=== PATIENT | male | born 1975 | race Caucasian/White ===

== ENCOUNTER 2019-04-21 13:21 | Emergency (ER) | payer SELFPAY ==
--- NOTE | 2019-04-21 14:02 | ER ---
Nurse's Notes [facility] Name: Bhargav Cresaranya Age: 44 yrs Sex: Male : 1975 Arrival Date: 04/21/2019 Time: 13:23 Bed 4 Private MD: Diagnosis: Gastrointestinal hemorrhage, unspecified-upper;Unspecified cirrhosis of liver;Ascites;Hypotension;Unspecified kidney failure;Hypomagnesemia Presentation: 04/21 13:30 Presenting complaint: Patient states: hx of cirrhosis/esophageal varices, vomiting iw blood today X 2 hours, started feeling bad yesterday, was feeling fatigued and bloated, was recently discharged from [facility] 1 month ago for variceal bleeding, hx of heavy drinking, stopped 1month ago but still drinks occasionally, c/o nausea, bloating, SOB, constipation, last BM was 3-4 days ago, took laxative, no relief. Transition of care: patient was not received from another setting of care. Onset of symptoms was April 21, 2019. Risk Assessment: Do you want to hurt yourself or someone else? Patient reports no desire to harm self or others. Initial Sepsis Screen: Does the patient meet any 2 criteria? Systolic BP < 90 mmHg. HR > 90 bpm. Does the patient have a suspected source of infection? No. Patient's initial sepsis screen is negative. Care prior to arrival: None. 13:30 Method Of Arrival: Wheelchair 13:30 Acuity: KIRILL 2 iw Historical: - Allergies: 13:35 No Known Allergies; iw - Home Meds: 13:35 None [Active]; iw - PMHx: 13:35 Cirrhosis; gallstones; esophageal varices; iw - PSHx: 13:35 variceal banding; iw - Immunization history:: Adult Immunizations not up to date. - Ebola Screening: : Patient negative for fever greater than or equal to 101.5 degrees Fahrenheit, and additional compatible Ebola Virus Disease symptoms Patient denies exposure to infectious person Patient denies travel to an Ebola-affected area in the 21 days before illness onset No symptoms or risks identified at this time. - Family history:: not pertinent. - Social history:: Smoking status: Patient uses tobacco products, Patient uses alcohol. Screenin:45 Abuse screen: Denies threats or abuse. Denies injuries from another. Nutritional hj screening: No deficits noted. Tuberculosis screening: No symptoms or risk factors identified. Fall Risk None identified. Assessment: 13:35 General: Appears distressed, uncomfortable, Behavior is cooperative, appropriate for hj age, anxious. Pain: Complains of pain in abdomen. Neuro: Level of Consciousness is awake, obeys commands, confused, Oriented to person, place, time, situation. Cardiovascular: Denies chest pain. Respiratory: Airway is patent Respiratory effort is labored, Respiratory pattern is tachypnea. GI: Reports bloody stool. : No signs and/or symptoms were reported regarding the genitourinary system. EENT: No signs and/or symptoms were reported regarding the EENT system. Derm: No signs and/or symptoms reported regarding the dermatologic system. Musculoskeletal: No signs and/or symptoms reported regarding the musculoskeletal system. 13:45 Reassessment: pt continues to be uncomfortable; MD at bedside; BP is on the 80's/50's;. hj 13:46 Reassessment: Md considers Central line placement and BIPAP placement; pt to be moved hj to bed 4;. 14:00 Reassessment: on bed 4; RT in room for BIPAP, pt refused BIPAP; on Neb tx; O2 sats on hj 95-96%; cath lab radiological technologist in room for blood draw but unable to stick pt;. 14:30 Reassessment: pt medicated with ativan 1 mg IV;. hj 14:35 Reassessment: pt now calmer; BIPAP, intubation set, on standbuy;. hj 15:20 Reassessment: assisted MD on central line placement;. hj 16:20 Reassessment: Patient and/or family updated on plan of care and expected duration. Pain hj level reassessed. Patient is alert, oriented x 3, equal unlabored respirations, skin warm/dry/pink. Patient states feeling better. 16:49 Reassessment: awaiting final paper works at [facility];. hj 17:15 Reassessment: Patient and/or family updated on plan of care and expected duration. Pain hj level reassessed. Patient is alert, oriented x 3, equal unlabored respirations, skin warm/dry/pink. called Michelle, ([phone]); informing her that pt is looking for her, says shell be here as soon as her son comes home; will relay message to pt;. Reassessment: BT of FFP started; documentation in paper docs; Nurse Saúl Metzger verfied info;. 17:50 Reassessment: 2nd unit of FFP started; Nurse James verified infusion;. hj 18:20 Reassessment: 1st unit of PRBC started; Nurse James verified blood;. hj 18:37 Reassessment: attempted to call report RN of [address] [address], Bed 7215;. hj 18:50 Reassessment: gave report to Ting Corcoran RN;. hj 19:00 Reassessment: report given to NESHA Osorio. hj 19:22 General: Appears in no apparent distress. comfortable, Behavior is calm, cooperative. ak1 Pain: Denies pain. Neuro: Level of Consciousness is awake, alert, obeys commands, confused, Oriented to person, place, time, situation, [employer] are equal bilaterally Moves all extremities. Speech is normal. Cardiovascular: Patient's skin is warm and dry. Rhythm is regular. Respiratory: Airway is patent Respiratory effort is even, unlabored, Respiratory pattern is regular, Breath sounds are clear. GI: Abdomen is round Bowel sounds present X 4 quads. no vomiting noted at this time. pt tolerating ice chips. : No signs and/or symptoms were reported regarding the genitourinary system. EENT: No signs and/or symptoms were reported regarding the EENT system. Derm: Skin is jaundiced, Skin temperature is warm. Musculoskeletal: No signs and/or symptoms reported regarding the musculoskeletal system. 19:47 Reassessment: pt tolerated 1st unit of blood well. see transfusion record for ak1 additional vital signs. 20:05 Reassessment: 2nd unit of PRBC started. ak1 20:14 General: Appears comfortable, Behavior is calm, resting with eyes closed, resp even and ak1 unlabored.. Respiratory: Airway is patent Respiratory effort is even, unlabored, Respiratory pattern is regular, Breath sounds are clear. 20:18 Reassessment: pt tolerating 2nd unit well. pt resting with eyes closed, resp unlabored. ak1 20:58 Reassessment: report given to Lico García with EMS. pt A\T\OX4 with even unlabored resp. ak1 blood products check with Lico García. non destructive testing supervisor with EMS. pt lungs CTA. pt in no distress at time of transport. Vital Signs: 13:35 BP 71 / 43; Pulse 105; Resp 22 S; Pulse Ox 96% on R/A; iw 14:00 BP 80 / 50; Pulse 114; Resp 24; Pulse Ox 89% on R/A; hj 14:30 BP 82 / 48; Pulse 115; Resp 26; Pulse Ox 92% on 2 lpm NC; hj 14:55 BP 104 / 66; Pulse 98; Resp 16; Pulse Ox 98% on Nebulizer Mask; hj 15:44 BP 101 / 62; Pulse 107; Resp 20; Pulse Ox 96% on 4 lpm NC; hj 15:57 BP 100 / 58; Pulse 85; Resp 18; Pulse Ox 96% on 4 lpm NC; hj 16:20 BP 101 / 60; Pulse 80; Resp 18; Pulse Ox 100% on 4 lpm NC; hj 16:48 BP 102 / 78; Pulse 86; Resp 18; Pulse Ox 97% on 4 lpm NC; hj 17:07 BP 118 / 80; Pulse 84; Resp 18; Temp 98.1(TE); Pulse Ox 100% on 4 lpm NC; hj 18:13 BP 120 / 71; Pulse 83; Resp 18; Pulse Ox 100% on 3 lpm NC; hj 18:28 BP 110 / 68; Pulse 83; Resp 18; Pulse Ox 100% on 3 lpm NC; hj 19:00 BP 106 / 91; Pulse 77; Resp 16; Temp 97.9(TE); Pulse Ox 96% on 3 lpm NC; Pain 0/10; ak1 19:29 BP 117 / 76; Pulse 78; Resp 14; Pulse Ox 100% on 3 lpm NC; ak1 20:10 BP 110 / 80; Pulse 74; Resp 14; Temp 97.8; Pulse Ox 100% on 3 lpm NC; Pain 0/10; ak1 20:15 BP 119 / 81; Pulse 76; Resp 14; Temp 97.9; Pulse Ox 99% on 3 lpm NC; Pain 0/10; ak1 20:25 BP 122 / 84; Pulse 75; Resp 14; Temp 98.2; Pulse Ox 98% on 3 lpm NC; Pain 0/10; ak1 21:00 BP 140 / 77; Pulse 88; Resp 18; Temp 98.1(TE); Pulse Ox 97% on 3 lpm NC; Pain 0/10; ak1 ED Course: 13:23 Patient arrived in ED. iw 13:23 Jay Cleary RN is Primary Nurse. hj 13:26 Anoop King MD is Attending Physician. nelson 13:30 Initial lab(s) drawn, by me, sent to lab. Inserted saline lock: 20 gauge in right iw antecubital area, using aseptic technique. Blood collected. 13:33 Triage completed. iw 13:35 Arm band placed on. iw 13:55 Patient has correct armband on for positive identification. Placed in gown. Bed in low hj position. Call light in reach. Side rails up X 1. Adult w/ patient. 14:00 Missed attempt(s): 20 gauge in left forearm. Bleeding controlled, band aid applied, iw catheter tip intact. 14:05 EKG done, by ED staff. sm3 15:49 XRAY Chest (1 view) In Process Unspecified. EDMS 18:55 No provider procedures requiring assistance completed. Patient transferred, IV remains hj in place. intact. Administered Medications: 13:45 Drug: Vitamin K1 10 mg Route: Sub-Q; Site: abdomen; hj 15:42 Follow up: Response: No adverse reaction hj 13:50 Drug: NS 0.9% 1000 ml Route: IV; Rate: 1000 ml; Site: right antecubital; hj 15:43 Follow up: IV Status: Completed infusion; IV Intake: 1000ml hj 13:50 Drug: Zofran 4 mg Route: IVP; Site: right antecubital; hj 15:43 Follow up: Response: No adverse reaction hj 13:58 Drug: ProTONIX 80 mg Route: IVP; Site: right antecubital; hj 15:42 Follow up: Response: No adverse reaction hj 14:00 Drug: SandoSTATIN 100 mcg Route: IV; Rate: per protocol; Site: right antecubital; hj 15:42 Follow up: IV Status: Completed infusion hj 14:20 Drug: SOLU-Medrol 125 mg Route: IVP; Site: right antecubital; hj 14:57 Follow up: Response: No adverse reaction hj 14:30 Drug: Xopenex 3.75 mg Route: Inhalation; hj 14:30 Drug: AtroVENT Aerosol 0.5 mg Route: Inhalation; hj 14:30 Drug: Ativan 1 mg Route: IVP; Site: right antecubital; hj 14:57 Follow up: Response: No adverse reaction; Anxiety decreased hj 15:15 Drug: SandoSTATIN 50 mcg Route: IV; Rate: per protocol; Site: right antecubital; hj 15:42 Follow up: IV Status: Completed infusion hj 15:33 Drug: ProTONIX 8 mg/hr Route: IV; Rate: 25 ml/hr; Site: right femoral; hj 15:41 Follow up: IV Status: Infusion continued hj 15:34 Drug: NS 0.9% 1000 ml Route: IV; Rate: 1 bolus; Site: right femoral; hj 15:42 Follow up: IV Status: Completed infusion hj 17:00 Follow up: IV Status: Completed infusion; IV Intake: 1000ml hj 15:41 Drug: Rocephin 2 grams Route: IV; Rate: per protocol; Site: right femoral; hj 15:41 Follow up: IV Status: Completed infusion hj 16:12 Drug: NS 0.9% 1000 ml Route: IV; Rate: 125 ml/hr; Site: right femoral; hj 16:13 Follow up: IV Status: Infusion continued upon transfer hj 16:33 Drug: Magnesium Sulfate 2 grams Route: IVPB; Infused Over: 2 hrs; Site: right femoral; hj 16:48 Follow up: IV Status: Completed infusion hj 18:39 Follow up: IV Status: Completed infusion; IV Intake: 100ml hj 16:33 Drug: Thiamine 100 mg Route: IV; Rate: bolus; Site: right femoral; hj 16:48 Follow up: IV Status: Completed infusion; IV Intake: 1ml hj 18:39 Follow up: IV Status: Completed infusion hj 16:33 Drug: Lactulose 30 grams Volume: 45 ml; Route: PO; hj 16:48 Follow up: Response: No adverse reaction hj 18:38 Follow up: Response: No adverse reaction hj 18:33 Not Given (Patient Refused): Ativan 1 mg IVP once hj Intake: 15:43 IV: 1000ml; Total: 1000ml. hj 16:48 IV: 1ml; Total: 1001ml. hj 17:00 IV: 1000ml; Total: 2001ml. hj 18:39 IV: 100ml; Total: 2101ml. hj Outcome: 14:02 ER care complete, transfer ordered by . [facility] 18:55 Transferred by [facility] to [facility], Transfer form completed. hj X-rays sent w/ patient. 18:55 Condition: stable 18:55 Instructed on the need for transfer, Demonstrated understanding of instructions. 21:07 Patient left the ED. ak1 Signatures: Dispatcher [employer] EDMS Anoop King MD MD cha Williams, Irene, RN Jo Chavze RN RN ak1 Jay Cleary RN RN hj Montes, Shakira 3 Corrections: (The following items were deleted from the chart) 16:04 15:57 BP 105 / 64; Pulse 85bpm; Resp 18bpm; Pulse Ox 96% 4 lpm Nasal Cannula; hj hj 16:21 15:44 BP 101 / 62; Pulse 107bpm; Resp 20bpm; Pulse Ox 96% 2 lpm Nasal Cannula; hj hj 16:49 16:48 BP 102 / 78; Pulse 92bpm; Resp 18bpm; Pulse Ox 97% 4 lpm Nasal Cannula; hj hj
--- NOTE | 2019-04-21 14:03 | EDPHYS ---
Physician Documentation [facility] Name: Bhargav Crews Age: 44 yrs Sex: Male : 1975 Arrival Date: 04/21/2019 Time: 13:23 Bed 4 Private MD: ANGELITA Physician Anoop King HPI: 04/21 13:55 This 44 yrs old Male presents to ER via Wheelchair with complaints of GI nelson Bleeding. 13:55 The patient presents to the emergency department vomiting blood. Onset: The nelson symptoms/episode began/occurred 2 day(s) ago. Abdominal pain: none is appreciated. Modifying factors: The symptoms are alleviated by nothing, the symptoms are aggravated by nothing. Associated signs and symptoms: Pertinent positives: dizziness at rest, dizziness when standing, shortness of breath, near-syncope, vomiting. Severity of symptoms: At their worst the symptoms were mild moderate in the emergency department the symptoms are unchanged. The patient has not experienced similar symptoms in the past. Historical: - Allergies: 13:35 No Known Allergies; iw - Home Meds: 13:35 None [Active]; iw - PMHx: 13:35 Cirrhosis; gallstones; esophageal varices; iw - PSHx: 13:35 variceal banding; iw - Immunization history:: Adult Immunizations not up to date. - Ebola Screening: : Patient negative for fever greater than or equal to 101.5 degrees Fahrenheit, and additional compatible Ebola Virus Disease symptoms Patient denies exposure to infectious person Patient denies travel to an Ebola-affected area in the 21 days before illness onset No symptoms or risks identified at this time. - Family history:: not pertinent. - Social history:: Smoking status: Patient uses tobacco products, Patient uses alcohol. ROS: 13:55 Constitutional: Negative for fever, chills, and weight loss, Eyes: Negative for injury, nelson pain, redness, and discharge, ENT: Negative for injury, pain, and discharge, Neck: Negative for injury, pain, and swelling, Back: Negative for injury and pain, : Negative for injury, bleeding, discharge, and swelling, MS/Extremity: Negative for injury and deformity, Neuro: Negative for headache, weakness, numbness, tingling, and seizure, Psych: Negative for depression, anxiety, suicide ideation, homicidal ideation, and hallucinations, Allergy/Immunology: Negative for hives, rash, and allergies, Endocrine: Negative for neck swelling, polydipsia, polyuria, polyphagia, and marked weight changes, Hematologic/Lymphatic: Negative for swollen nodes, abnormal bleeding, and unusual bruising. 13:55 Cardiovascular: Positive for palpitations. 13:55 Respiratory: Positive for shortness of breath. 13:55 Abdomen/GI: Positive for abdominal pain, abdominal distension. 13:55 Skin: Positive for pallor. Exam: 13:55 Constitutional: This is a well developed, well nourished patient who is awake, alert, nelson and in no acute distress. Head/Face: Normocephalic, atraumatic. ENT: Nares patent. No nasal discharge, no septal abnormalities noted. Tympanic membranes are normal and external auditory canals are clear. Oropharynx with no redness, swelling, or masses, exudates, or evidence of obstruction, uvula midline. Mucous membranes moist. Neck: Trachea midline, no thyromegaly or masses palpated, and no cervical lymphadenopathy. Supple, full range of motion without nuchal rigidity, or vertebral point tenderness. No Meningismus. Chest/axilla: Normal chest wall appearance and motion. Nontender with no deformity. No lesions are appreciated. Respiratory: Lungs have equal breath sounds bilaterally, clear to auscultation and percussion. No rales, rhonchi or wheezes noted. No increased work of breathing, no retractions or nasal flaring. Back: No spinal tenderness. No costovertebral tenderness. Full range of motion. Male : Normal genitalia with no discharge or lesions. MS/ Extremity: Pulses equal, no cyanosis. Neurovascular intact. Full, normal range of motion. Neuro: Awake and alert, GCS 15, oriented to person, place, time, and situation. Cranial nerves II-XII grossly intact. Motor strength 5/5 in all extremities. Sensory grossly intact. Cerebellar exam normal. Normal gait. Psych: Awake, alert, with orientation to person, place and time. Behavior, mood, and affect are within normal limits. 13:55 Cardiovascular: Rate: tachycardic, Rhythm: regular, Pulses: Pulses are 4+ in bilateral radial, brachial, femoral, popliteal, posterior tibial and and dorsalis pedis arteries.. Heart sounds: normal, Edema: is not appreciated, JVD: is not appreciated. 13:55 Skin: Appearance: Color: pale, Temperature: normal temperature, Moisture: normal moisture, petechiae, not noted, ecchymosis, not noted, flushing, not noted, diaphoresis is not appreciated. Vital Signs: 13:35 BP 71 / 43; Pulse 105; Resp 22 S; Pulse Ox 96% on R/A; iw 14:00 BP 80 / 50; Pulse 114; Resp 24; Pulse Ox 89% on R/A; hj 14:30 BP 82 / 48; Pulse 115; Resp 26; Pulse Ox 92% on 2 lpm NC; hj 14:55 BP 104 / 66; Pulse 98; Resp 16; Pulse Ox 98% on Nebulizer Mask; hj 15:44 BP 101 / 62; Pulse 107; Resp 20; Pulse Ox 96% on 4 lpm NC; hj 15:57 BP 100 / 58; Pulse 85; Resp 18; Pulse Ox 96% on 4 lpm NC; hj 16:20 BP 101 / 60; Pulse 80; Resp 18; Pulse Ox 100% on 4 lpm NC; hj 16:48 BP 102 / 78; Pulse 86; Resp 18; Pulse Ox 97% on 4 lpm NC; hj 17:07 BP 118 / 80; Pulse 84; Resp 18; Temp 98.1(TE); Pulse Ox 100% on 4 lpm NC; hj 18:13 BP 120 / 71; Pulse 83; Resp 18; Pulse Ox 100% on 3 lpm NC; hj 18:28 BP 110 / 68; Pulse 83; Resp 18; Pulse Ox 100% on 3 lpm NC; hj 19:00 BP 106 / 91; Pulse 77; Resp 16; Temp 97.9(TE); Pulse Ox 96% on 3 lpm NC; Pain 0/10; ak1 19:29 BP 117 / 76; Pulse 78; Resp 14; Pulse Ox 100% on 3 lpm NC; ak1 20:10 BP 110 / 80; Pulse 74; Resp 14; Temp 97.8; Pulse Ox 100% on 3 lpm NC; Pain 0/10; ak1 20:15 BP 119 / 81; Pulse 76; Resp 14; Temp 97.9; Pulse Ox 99% on 3 lpm NC; Pain 0/10; ak1 20:25 BP 122 / 84; Pulse 75; Resp 14; Temp 98.2; Pulse Ox 98% on 3 lpm NC; Pain 0/10; ak1 21:00 BP 140 / 77; Pulse 88; Resp 18; Temp 98.1(TE); Pulse Ox 97% on 3 lpm NC; Pain 0/10; ak1 Procedures: 15:18 Central Line: the site was prepped with Betadine, in sterile fashion, a triple lumen nelson catheter was inserted, in the right in 3 attempts. placement was verified, by blood return, the site was dressed with using sterile technique, the patient tolerated the procedure, well. MDM: 13:26 Patient medically screened. [facility] 13:59 Data reviewed: vital signs, nurses notes, lab test result(s), EKG, radiologic studies, nelson plain films. 04/21 13:48 Order name: Basic Metabolic Panel; Complete Time: 16: 04/21 13:48 Order name: CBC with Diff; Complete Time: 16: 04/21 13:48 Order name: LFT's; Complete Time: 16:29 04/21 13:48 Order name: Magnesium; Complete Time: 16: 04/21 13:48 Order name: NT PRO-BNP; Complete Time: 16: 04/21 13:48 Order name: PT-INR; Complete Time: 16:40 04/21 13:48 Order name: Troponin (emerg Dept Use Only); Complete Time: 16: 04/21 13:48 Order name: Amylase, Serum; Complete Time: 16:29 04/21 13:48 Order name: Lipase; Complete Time: 16:29 04/21 13:49 Order name: Type And Screen 04/21 13:55 Order name: AMMONIA; Complete Time: 16:29 [facility] 04/21 13:55 Order name: UDS [facility] 04/21 14:05 Order name: Bb Add On bd 04/21 14:21 Order name: Blood Culture Adult (2) [facility] 04/21 13:48 Order name: XRAY Chest (1 view); Complete Time: 16:29 04/21 16:24 Order name: Fresh Frozen Plasma [facility] 04/21 16:36 Order name: ABO/RH no charge; Complete Time: 16:40 [facility] 04/21 17:15 Order name: Packed RBCs (Additional Unit) [facility] 04/21 13:48 Order name: EKG; Complete Time: 13:51 04/21 13:48 Order name: Cardiac monitoring; Complete Time: 13:59 04/21 13:48 Order name: EKG - Nurse/Tech; Complete Time: 13:59 04/21 13:48 Order name: IV Saline Lock; Complete Time: 13:59 04/21 13:48 Order name: Labs collected and sent; Complete Time: 13:59 04/21 13:48 Order name: O2 Per Protocol; Complete Time: 13:59 04/21 13:48 Order name: O2 Sat Monitoring; Complete Time: 13:59 04/21 14:14 Order name: Labs - recollect needed; Complete Time: 15:33 04/21 14:21 Order name: Central Line Kit; Complete Time: 15:33 [facility] 04/21 15:53 Order name: Labs - recollect needed; Complete Time: 15:56 04/21 17:10 Order name: Transfuse; Complete Time: 17:13 hj Administered Medications: 13:45 Drug: Vitamin K1 10 mg Route: Sub-Q; Site: abdomen; hj 15:42 Follow up: Response: No adverse reaction hj 13:50 Drug: NS 0.9% 1000 ml Route: IV; Rate: 1000 ml; Site: right antecubital; hj 15:43 Follow up: IV Status: Completed infusion; IV Intake: 1000ml hj 13:50 Drug: Zofran 4 mg Route: IVP; Site: right antecubital; hj 15:43 Follow up: Response: No adverse reaction hj 13:58 Drug: ProTONIX 80 mg Route: IVP; Site: right antecubital; hj 15:42 Follow up: Response: No adverse reaction hj 14:00 Drug: SandoSTATIN 100 mcg Route: IV; Rate: per protocol; Site: right antecubital; hj 15:42 Follow up: IV Status: Completed infusion hj 14:20 Drug: SOLU-Medrol 125 mg Route: IVP; Site: right antecubital; hj 14:57 Follow up: Response: No adverse reaction hj 14:30 Drug: Xopenex 3.75 mg Route: Inhalation; hj 14:30 Drug: AtroVENT Aerosol 0.5 mg Route: Inhalation; hj 14:30 Drug: Ativan 1 mg Route: IVP; Site: right antecubital; hj 14:57 Follow up: Response: No adverse reaction; Anxiety decreased hj 15:15 Drug: SandoSTATIN 50 mcg Route: IV; Rate: per protocol; Site: right antecubital; hj 15:42 Follow up: IV Status: Completed infusion hj 15:33 Drug: ProTONIX 8 mg/hr Route: IV; Rate: 25 ml/hr; Site: right femoral; hj 15:41 Follow up: IV Status: Infusion continued hj 15:34 Drug: NS 0.9% 1000 ml Route: IV; Rate: 1 bolus; Site: right femoral; hj 15:42 Follow up: IV Status: Completed infusion hj 17:00 Follow up: IV Status: Completed infusion; IV Intake: 1000ml hj 15:41 Drug: Rocephin 2 grams Route: IV; Rate: per protocol; Site: right femoral; hj 15:41 Follow up: IV Status: Completed infusion hj 16:12 Drug: NS 0.9% 1000 ml Route: IV; Rate: 125 ml/hr; Site: right femoral; hj 16:13 Follow up: IV Status: Infusion continued upon transfer hj 16:33 Drug: Magnesium Sulfate 2 grams Route: IVPB; Infused Over: 2 hrs; Site: right femoral; hj 16:48 Follow up: IV Status: Completed infusion hj 18:39 Follow up: IV Status: Completed infusion; IV Intake: 100ml hj 16:33 Drug: Thiamine 100 mg Route: IV; Rate: bolus; Site: right femoral; hj 16:48 Follow up: IV Status: Completed infusion; IV Intake: 1ml hj 18:39 Follow up: IV Status: Completed infusion hj 16:33 Drug: Lactulose 30 grams Volume: 45 ml; Route: PO; hj 16:48 Follow up: Response: No adverse reaction hj 18:38 Follow up: Response: No adverse reaction hj 18:33 Not Given (Patient Refused): Ativan 1 mg IVP once hj Disposition: 04/21/19 14:02 Transfer ordered to [facility]. Diagnosis are Gastrointestinal hemorrhage, unspecified - upper, Unspecified cirrhosis of liver, Ascites, Hypotension, Unspecified kidney failure, Hypomagnesemia. - Reason for transfer: Higher level of care. - Accepting physician is to [facility], liver team, icu. - Condition is Serious. - Problem is new. - Symptoms have improved. Signatures: Dispatcher [employer] April Kee Corey, MD MD cha Williams, Irene, RN RN iw Jo Belcher, RN RN ak1 Jay Cleary RN RN hj Corrections: (The following items were deleted from the chart) 14:50 14:24 BiPap ([employer] Only)+JAVI ordered. [facility] 16:32 14:02 04/21/2019 14:02 Transfer ordered to [facility]. Diagnosis is nelson Gastrointestinal hemorrhage, unspecified - upper; Unspecified cirrhosis of liver; Ascites; Hypotension. Reason for transfer: Higher level of care. Accepting physician is to [facility], liver team, icu. Condition is Serious. Problem is new. Symptoms have improved. [facility] 21:07 16:32 04/21/2019 14:02 Transfer ordered to [facility]. Diagnosis is ak1 Gastrointestinal hemorrhage, unspecified - upper; Unspecified cirrhosis of liver; Ascites; Hypotension; Unspecified kidney failure; Hypomagnesemia. Reason for transfer: Higher level of care. Accepting physician is to [facility], liver team, icu. Condition is Serious. Problem is new. Symptoms have improved. nelson
[2019-04-21] MEDS ORDERED: ONDANSETRON 4 MG/2 ML VIAL ONE (14:08)
[2019-04-21] MEDS ORDERED: NA CHLORIDE 0.9% 1,000 ML ONE ×3 (14:09→16:30)
[2019-04-21] MEDS ORDERED: VITAMIN K (ADULT) 10 MG/ML ONE (14:25)
[2019-04-21] MEDS ORDERED: PANTOPRAZOLE 40 MG INJ ONE (14:26)
[2019-04-21] MEDS ORDERED: OCTREOTIDE ACETATE 100 MCG/ML IV ONE (14:30)
[2019-04-21] MEDS ORDERED: OCTREOTIDE 500 MCG in NA CHLORIDE 0.9% 500 ML IV ONE (14:30)
[2019-04-21] MEDS ORDERED: PANTOPRAZOLE INJ 80 MG in NA CHLORIDE 0.9% 250 ML IV ONE (14:30)
[2019-04-21] MEDS ORDERED: METHYLPREDNISOLONE 125 MG INJ ONE (14:38)
[2019-04-21] MEDS ORDERED: ETOMIDATE 20 MG/10 ML VIAL IV ONE (14:43)
[2019-04-21] MEDS ORDERED: MIDAZOLAM HCL 2 MG/2 ML INJ ONE (14:43)
[2019-04-21] MEDS ORDERED: SUCCINYLCHOLINE 20 MG/ML (10 ML) IV ONE (14:44)
[2019-04-21] MEDS ORDERED: IPRATROPIUM BROM 0.5MG/2.5ML ONE (14:45)
[2019-04-21] MEDS ORDERED: LEVALBUTEROL 1.25 MG/3 ML NEB ONE (14:45)
[2019-04-21] MEDS ORDERED: LORazepam 2 MG/ML VIAL ONE (14:48)
[2019-04-21] MEDS ORDERED: LIDOCAINE 1% MPF 30 ML VIAL ONE (15:15)
[2019-04-21 15:53] LABS: Absolute Lymphocytes (CBC) 2.8 K/uL (0.7-4.9); Hematocrit 27.5 % (39.6-49.0); Lymphocytes % 24.8 % (15.3-44.8); MPV 10.9 fL (7.6-11.3); RBC Red Blood Cell Count 3.34 M/uL (4.33-5.43)
[2019-04-21] MEDS ORDERED: CEFTRIAXONE/SWI 1gm 2 GM/20 ML SYR ONE (15:55)
[2019-04-21 15:57] LABS: ALT/SGPT 37 U/L (12-78); AST/SGOT 88 U/L (15-37); Albumin 3.2 g/dL (3.4-5.0); Alkaline Phosphatase 121 U/L (45-117); Amylase Level 62 U/L (25-115); BUN Blood Urea Nitrogen 16 mg/dL (7-18); Bicarbonate 31 mmol/L (21-32); Bilirubin Direct 0.4 mg/dL (0-0.2); Bilirubin Total 1.3 mg/dL (0.2-1.0); Glucose Level 108 mg/dL (74-106); Lipase 225 U/L (73-393); Magnesium 1.6 mg/dL (1.8-2.4); NT PRO-BNP 110 pg/mL (<125); Potassium 3.9 mmol/L (3.5-5.1); Sodium Level 139 mmol/L (136-145); Troponin (Emerg Dept Use Only) < 0.02 ng/mL (0.0-0.045)
--- NOTE | 2019-04-21 16:03 | RAD REPORT ---
EXAM DESCRIPTION: Rylan Single View04/21/2019 3:49 pm CLINICAL HISTORY: sob COMPARISON: none FINDINGS: The lungs appear clear of acute infiltrate. The heart is normal size IMPRESSION: No acute abnormalities displayed
[2019-04-21 16:27] LABS: Protime INR 1.61
[2019-04-21] MEDS ORDERED: THIAMINE 200 MG/2 ML INJ ONE (17:00)
[2019-04-21] MEDS ORDERED: LACTULOSE 20 GM/30 ML UCUP ONE (17:00)
[2019-04-21] MEDS ORDERED: Magnesium Sulfate 2gm IVPB 2 G/50 ML BAG IV ONE (17:00)
[2019-04-21] MEDS ORDERED: NA CHLORIDE 0.9% 100 ML IV ONE (17:13)
[2019-04-21] MEDS ORDERED: NA CHLORIDE 0.9% 200 ML IV ONE (18:01)
[2019-04-21 21:27] LABS: Barbiturates NEGATIVE (NEGATIVE); Benzodiazepines NEGATIVE (NEGATIVE); Cocaine NEGATIVE (NEGATIVE); METHAMPHETAM NEGATIVE (NEGATIVE); Methadone NEGATIVE (NEGATIVE); Opiates NEGATIVE (NEGATIVE); Phencyclidine NEGATIVE (NEGATIVE); THC Cannibis NEGATIVE (NEGATIVE)
--- NOTE | 2019-04-22 13:39 | EKG ---
Test Date: 2019-04-21 Test Time: 13:31:53 Card Services Specialist: KARTIK MEASUREMENT RESULTS: Intervals: Rate: 110 [place]: 146 QRSD: 94 QT: 372 QTc: 503 [place]: P: 51 [place]: 146 QRS: -58 T: 62 INTERPRETIVE STATEMENTS: Sinus tachycardia Indeterminate axis Possible Inferior infarct, age undetermined Abnormal ECG No previous ECG available for comparison Electronically Signed On 04-22-19 13:34:29 CDT by Elfego Eubanks
== END 2019-04-21 21:07 | disposition short-term general hospital (02) ==
LOC: ER 13:21
PROC: 05HP33Z Insertion of Infusion Device into Right External Jugular Vein, Percutaneous Approach (ICD-10-PCS; principal; 2019-04-21)
PROC: 30233N1 Transfusion of Nonautologous Red Blood Cells into Peripheral Vein, Percutaneous Approach (ICD-10-PCS; 2019-04-21)
DX: N19 Unspecified kidney failure (principal); K74.60 Unspecified cirrhosis of liver; R18.8 Other ascites; E83.42 Hypomagnesemia; Z72.0 Tobacco use
CPT/HCPCS: 36415; 71045; 80048; 80076; 80307; 82140; 82150; 83690; 83735; 83880; 84484; 85025; 85610; 86850; 86900; 86901; 87040; 93005; 96365; 96368; 96372; 96375; 99285; C9113; J0330; J0696; J2250; J2354; J2405; J2930; J3411; J3430; J3475; J7030; P9016; P9059

== ENCOUNTER 2019-07-11 13:28 | Emergency (ER) | payer SELFPAY ==
[2019-07-11] MEDS ORDERED: PANTOPRAZOLE 40 MG INJ ONE (14:11)
[2019-07-11] MEDS ORDERED: OCTREOTIDE ACETATE 100 MCG/ML ONE (14:11)
[2019-07-11 14:14] LABS: Absolute Lymphocytes (CBC) 2.7 K/uL (0.7-4.9); Basophils % 2.1 % (0-1.3); Hematocrit 24.4 % (39.6-49.0); Lymphocytes % 38.4 % (15.3-44.8); MPV 10.7 fL (7.6-11.3); RBC Red Blood Cell Count 3.25 M/uL (4.33-5.43)
[2019-07-11 14:35] LABS: ALT/SGPT 37 U/L (12-78); AST/SGOT 65 U/L (15-37); Albumin 3.3 g/dL (3.4-5.0); Alkaline Phosphatase 58 U/L (45-117); BUN Blood Urea Nitrogen 19 mg/dL (7-18); Bicarbonate 31 mmol/L (21-32); Bilirubin Direct 0.2 mg/dL (0-0.2); Bilirubin Total 0.7 mg/dL (0.2-1.0); Glucose Level 84 mg/dL (74-106); NT PRO-BNP 15 pg/mL (<125); Protein, Total 7.9 g/dL (6.4-8.2); Sodium Level 136 mmol/L (136-145); Troponin (Emerg Dept Use Only) < 0.02 ng/mL (0.0-0.045)
--- NOTE | 2019-07-11 14:35 | RAD REPORT ---
EXAM DESCRIPTION: Rylan Single View07/11/2019 2:20 pm CLINICAL HISTORY: Shortness of breath COMPARISON: March 2019 FINDINGS: The lungs appear clear of acute infiltrate. The heart is normal size IMPRESSION: No acute abnormalities displayed
[2019-07-11 14:36] LABS: Magnesium 1.3 mg/dL (1.8-2.4)
[2019-07-11] MEDS ORDERED: Magnesium Sulfate 2gm IVPB 2 G/50 ML BAG IV ONE (14:40)
[2019-07-11 14:51] LABS: Protime INR 1.31
[2019-07-11] MEDS ORDERED: PANTOPRAZOLE INJ 80 MG in NA CHLORIDE 0.9% 250 ML IV SCH (15:00)
[2019-07-11] MEDS ORDERED: OCTREOTIDE 500 MCG in NA CHLORIDE 0.9% 500 ML IV SCH (15:00)
[2019-07-11 15:14] LABS: Anisocytosis 2+; Blood Morphology Comment NOTED (NOT SEEN); Hypochromasia 2+; Platelet Estimate DECR; Platelets, Giant FEW; Urine White Blood Cell Casts OK
[2019-07-11 15:15] LABS: Elliptocytes 1+; Stomatocytes 1+
--- NOTE | 2019-07-11 15:20 | EDPHYS ---
Physician Documentation [facility] – [place], [place] Name: Bhargav Crews Age: 44 yrs Sex: Male : 1975 Arrival Date: 07/11/2019 Time: 13:29 Bed 8 Private MD: ED Physician Lewis Mobley HPI: 07/11 14:06 This 44 yrs old Male presents to ER via Ambulatory with complaints of jr8 Shortness Of Breath, Dizziness, Nausea. 14:06 The patient has shortness of breath at rest. Onset: The symptoms/episode began/occurred jr8 today. Duration: The symptoms are continuous. Associated signs and symptoms: Pertinent negatives: diaphoresis, dizziness. Severity of symptoms: At their worst the symptoms were moderate. Pt reports hx fo esophageal varices, has feels SOB and dizzy, states he feels like when his hgb is low. Historical: - Allergies: 13:36 No Known Allergies; ss - PMHx: 13:36 Cirrhosis; esophageal varices; GALLSTONES; ss - PSHx: 13:36 variceal banding; ss - Immunization history:: Adult Immunizations unknown. - Social history:: Smoking status: Patient uses tobacco products, smokes one pack cigarettes per day. Patient/guardian denies using street drugs. - Ebola Screening: : Patient denies exposure to infectious person Patient denies travel to an Ebola-affected area in the 21 days before illness onset. ROS: 14:08 Constitutional: Negative for fever, chills, and weight loss, Eyes: Negative for injury, jr8 pain, redness, and discharge, ENT: Negative for injury, pain, and discharge, Neck: Negative for injury, pain, and swelling, Cardiovascular: Negative for chest pain, palpitations, and edema, Respiratory: Negative for shortness of breath, cough, wheezing, and pleuritic chest pain, Back: Negative for injury and pain, MS/Extremity: Negative for injury and deformity, Neuro: Negative for headache, weakness, numbness, tingling, and seizure. 14:08 Abdomen/GI: Positive for black/tarry stool. Exam: 14:08 Constitutional: This is a well developed, well nourished patient who is awake, alert, jr8 and in no acute distress. Head/Face: Normocephalic, atraumatic. Eyes: Pupils equal round and reactive to light, extra-ocular motions intact. Lids and lashes normal. Conjunctiva and sclera are non-icteric and not injected. Cornea within normal limits. Periorbital areas with no swelling, redness, or edema. ENT: Nares patent. No nasal discharge, no septal abnormalities noted. Tympanic membranes are normal and external auditory canals are clear. Oropharynx with no redness, swelling, or masses, exudates, or evidence of obstruction, uvula midline. Mucous membranes moist. Neck: Trachea midline, no thyromegaly or masses palpated, and no cervical lymphadenopathy. Supple, full range of motion without nuchal rigidity, or vertebral point tenderness. No Meningismus. Chest/axilla: Normal chest wall appearance and motion. Nontender with no deformity. No lesions are appreciated. Cardiovascular: Regular rate and rhythm with a normal S1 and S2. No gallops, murmurs, or rubs. Normal PMI, no JVD. No pulse deficits. Respiratory: Lungs have equal breath sounds bilaterally, clear to auscultation and percussion. No rales, rhonchi or wheezes noted. No increased work of breathing, no retractions or nasal flaring. Back: No spinal tenderness. No costovertebral tenderness. Full range of motion. Skin: Warm, dry with normal turgor. Normal color with no rashes, no lesions, and no evidence of cellulitis. 14:08 Abdomen/GI: Inspection: abdomen appears normal, obese Bowel sounds: normal, Palpation: abdomen is soft and non-tender, in all quadrants, Rectal exam: Stool: guaiac positive, black, loose, hemorrhoid(s), are not appreciated, Indicators: McBurney's point is not tender, Meier's sign is negative, Rovsing's sign is negative, Obturator sign is negative, Psoas sign is negative. Vital Signs: 13:36 BP 95 / 77; Pulse 94; Resp 20; Temp 97.1(TE); Pulse Ox 94% on R/A; Weight 101.6 kg; ss Height 5 ft. 9 in. (175.26 cm); Pain 0/10; 15:00 BP 102 / 74; Pulse 72; Resp 20; Pulse Ox 99% on R/A; hb 16:01 BP 96 / 67; Pulse 76; Resp 18; Pulse Ox 99% on R/A; Pain 0/10; hb 17:00 BP 102 / 68; Pulse 74; Resp 15; Pulse Ox 100% on R/A; Pain 0/10; hb 13:36 Body Mass Index 33.08 (101.60 kg, 175.26 cm) ss MDM: 13:46 Patient medically screened. [facility] 15:16 Data reviewed: vital signs, nurses notes, lab test result(s), and as a result, I will [facility] admit patient. Data interpreted: Pulse oximetry: on room air is 99 %. Interpretation: normal. Counseling: I had a detailed discussion with the patient and/or guardian regarding: the historical points, exam findings, and any diagnostic results supporting the discharge/admit diagnosis, lab results, the need to transfer to another facility, [facility] does not immediately have the required specialist. 15:18 ED course: Consulted with GI, hepatology, and medicine at [facility] who accepted [facility] transfer as we do not have GI available at this time . 07/11 13:46 Order name: Basic Metabolic Panel; Complete Time: 14:39 [facility] 07/11 13:46 Order name: CBC with Diff; Complete Time: 15:16 [facility] 07/11 13:46 Order name: LFT's; Complete Time: 14:39 8 07/11 13:46 Order name: Magnesium; Complete Time: 14:39 8 07/11 13:46 Order name: NT PRO-BNP; Complete Time: 14:39 8 07/11 13:46 Order name: PT-INR; Complete Time: 14:57 [facility] 07/11 13:46 Order name: Troponin (emerg Dept Use Only); Complete Time: 14:39 8 07/11 13:46 Order name: TS [facility] 07/11 13:47 Order name: Occult Blood--Ancillary eb 07/11 14:39 Order name: Bb Add On eb 07/11 15:03 Order name: Antibody Identification EDCT 07/11 15:04 Order name: CBC Smear Scan; Complete Time: 15:16 [facility] 07/11 15:15 Order name: Blood Culture Adult (2) [facility] 07/11 13:46 Order name: XRAY Chest (1 view); Complete Time: 14:39 [facility] 07/11 13:46 Order name: EKG; Complete Time: 13:47 07/11 13:46 Order name: Cardiac monitoring; Complete Time: 14:04 8 07/11 13:46 Order name: EKG - Nurse/Tech; Complete Time: 14:04 8 07/11 13:46 Order name: IV Saline Lock; Complete Time: 14:04 8 07/11 13:46 Order name: Labs collected and sent; Complete Time: 14:05 8 07/11 13:46 Order name: O2 Per Protocol; Complete Time: 14:04 [facility] 07/11 13:46 Order name: O2 Sat Monitoring; Complete Time: 14:05 8 Administered Medications: 14:23 Drug: ProTONIX 40 mg Route: IVP; Site: right upper arm; hb 15:11 Follow up: Response: No adverse reaction hb 14:24 Drug: Octreotide 25 mcg Route: IV; Rate: calculated rate; Site: right upper arm; hb 15:11 Follow up: Response: No adverse reaction; IV Status: Completed infusion; IV Intake: hb 0.25ml 14:44 Drug: Magnesium Sulfate 2 grams Route: IVPB; Infused Over: 2 hrs; Site: right upper arm;hb 16:45 Follow up: Response: No adverse reaction; IV Status: Completed infusion; IV Intake: 50mlhb 15:11 Drug: Octreotide Infusion (50 mcg/hr) - (Octreotide 500 mcg, NS 0.9% 500 ml) Route: IV; hb Rate: 50 ml/hr; Site: right upper arm; 17:00 Follow up: Response: No adverse reaction; IV Status: Infusion continued upon transfer; hb IV Intake: 100ml 15:11 Drug: ProTONIX 8 mg/hr Route: IV; Rate: 25 ml/hr; Site: left forearm; hb 17:00 Follow up: Response: No adverse reaction; IV Status: Infusion continued upon transfer; hb IV Intake: 50ml 15:44 Drug: Rocephin 1 grams Route: IV; Rate: calculated rate; Site: left forearm; hb 17:07 Follow up: Response: No adverse reaction hb Disposition: 07/12 15:09 Co-signature as Attending Physician, Lewis Mobley MD. gs Disposition: 07/11/19 15:[address] [facility]. Diagnosis is Gastrointestinal hemorrhage, unspecified. - Reason for transfer: Higher level of care. - Accepting physician is [facility]. - Condition is Stable. - Problem is new. - Symptoms are unchanged. Signatures: Dispatcher [employer] EDMisti Baird, RN RN Lico Hayes PA PA jr8 Shaneka Mcduffie RN RN hb Starr, Gregory, MD MD gs Corrections: (The following items were deleted from the chart) 07/11 17:06 15:19 07/11/2019 15:[address] [facility]. Diagnosis is hb Gastrointestinal hemorrhage, unspecified. Reason for transfer: Higher level of care. Accepting physician is [facility]. Condition is Stable. Problem is new. Symptoms are unchanged. jr8
--- NOTE | 2019-07-11 15:20 | ER ---
Nurse's Notes [facility] Name: Bhargav Toth Age: 44 yrs Sex: Male : 1975 Arrival Date: 07/11/2019 Time: 13:29 Bed 8 Private MD: Diagnosis: Gastrointestinal hemorrhage, unspecified Presentation: 07/11 13:32 Presenting complaint: Patient states: lightheaded and shortness of breath that began 1 ss hour ago. Patient has a history of esophageal varices and reports that last time he felt this way he was bleeding, but that only happens when he drinks. Patient reports that he quit drinking 3-4 months ago, and began taking vitamins that he believes has made his stool a little darker than normal. Transition of care: patient was not received from another setting of care. Onset of symptoms was July 11, 2019. Risk Assessment: Do you want to hurt yourself or someone else? Patient reports no desire to harm self or others. Initial Sepsis Screen: Does the patient meet any 2 criteria? No. Patient's initial sepsis screen is negative. Does the patient have a suspected source of infection? No. Patient's initial sepsis screen is negative. Care prior to arrival: None. 13:32 Method Of Arrival: Ambulatory ss 13:32 Acuity: KIRILL 2 ss Historical: - Allergies: 13:36 No Known Allergies; ss - PMHx: 13:36 Cirrhosis; esophageal varices; GALLSTONES; ss - PSHx: 13:36 variceal banding; ss - Immunization history:: Adult Immunizations unknown. - Social history:: Smoking status: Patient uses tobacco products, smokes one pack cigarettes per day. Patient/guardian denies using street drugs. - Ebola Screening: : Patient denies exposure to infectious person Patient denies travel to an Ebola-affected area in the 21 days before illness onset. Screenin:05 Abuse screen: Denies threats or abuse. Denies injuries from another. Nutritional hb screening: No deficits noted. Tuberculosis screening: No symptoms or risk factors identified. Fall Risk None identified. Assessment: 14:05 General: Appears in no apparent distress. ill, Behavior is calm, cooperative. Pain: hb Pain currently is 2 out of 10 on a pain scale. Neuro: Level of Consciousness is awake, alert, obeys commands, Oriented to person, place, time, situation. Cardiovascular: Heart tones S1 S2 present Capillary refill < 3 seconds Patient's skin is warm and dry. Rhythm is regular. Respiratory: Reports shortness of breath on exertion Airway is patent Trachea midline Respiratory effort is even, unlabored, Respiratory pattern is regular, symmetrical, Breath sounds are clear bilaterally. GI: Reports bloody stool. : No signs and/or symptoms were reported regarding the genitourinary system. EENT: No signs and/or symptoms were reported regarding the EENT system. Derm: Skin is dry, Skin is jaundiced, pale, Skin temperature is warm. Musculoskeletal: No signs and/or symptoms reported regarding the musculoskeletal system. 15:00 Reassessment: Patient appears in no apparent distress at this time. Patient and/or hb family updated on plan of care and expected duration. Pain level reassessed. Patient is alert, oriented x 3, equal unlabored respirations, skin warm/dry/pink. 15:49 Reassessment: Report called to Carina JEFFRIES at [facility]. hb 15:52 Reassessment: Pt verbalized concern re: transfer to [place], ZITA Barfield notified. hb 15:53 Reassessment: ZITA Barfield at bedside. hb 16:30 Reassessment: Patient appears in no apparent distress at this time. Patient and/or hb family updated on plan of care and expected duration. Pain level reassessed. Patient is alert, oriented x 3, equal unlabored respirations, skin warm/dry/pink. Vital Signs: 13:36 BP 95 / 77; Pulse 94; Resp 20; Temp 97.1(TE); Pulse Ox 94% on R/A; Weight 101.6 kg; ss Height 5 ft. 9 in. (175.26 cm); Pain 0/10; 15:00 BP 102 / 74; Pulse 72; Resp 20; Pulse Ox 99% on R/A; hb 16:01 BP 96 / 67; Pulse 76; Resp 18; Pulse Ox 99% on R/A; Pain 0/10; hb 17:00 BP 102 / 68; Pulse 74; Resp 15; Pulse Ox 100% on R/A; Pain 0/10; hb 13:36 Body Mass Index 33.08 (101.60 kg, 175.26 cm) ED Course: 13:29 Patient arrived in ED. as 13:35 Triage completed. ss 13:36 Arm band placed on right wrist. ss 13:39 Roszak, Lico, PA is PHCP. ph 14:04 Initial lab(s) drawn, by me, sent to lab. T\T\S collected, blood band applied to patient. jb1 Inserted saline lock: 22 gauge in right upper arm, using aseptic technique. Blood collected. 14:05 Patient has correct armband on for positive identification. Bed in low position. Call hb light in reach. Side rails up X 1. 14:12 EKG done, by accessibility lift technician. reviewed by Lico AHUMADA. at1 14:19 XRAY Chest (1 view) In Process Unspecified. EDMS 14:39 initiated a transfer with Luna Ponce from the [facility]. eb 14:46 Shaneka Mcduffie RN is Primary Nurse. hb 14:46 Inserted saline lock: 22 gauge in left forearm, using aseptic technique. ,using aseptic hb technique. by BISHNU JEFFRIES. 15:00 connected the GI doctor construction teacher for [facility] with Lico AHUMADA for patient transfer eb consultation. 15:[address] Wu from [facility] with Lico AHUMADA for patient eb transfer consultation. 15:18 Lewis Mobley MD is Attending Physician. [facility] 15:23 administrative approval given by Luna Ponce / patient has been accepted to [facility] bed 911/ Dr. Wu has accepted the patient in transfer/ report to be called to [phone]. 17:00 No provider procedures requiring assistance completed. Patient transferred, IV remains hb in place. Administered Medications: 14:23 Drug: ProTONIX 40 mg Route: IVP; Site: right upper arm; hb 15:11 Follow up: Response: No adverse reaction hb 14:24 Drug: Octreotide 25 mcg Route: IV; Rate: calculated rate; Site: right upper arm; hb 15:11 Follow up: Response: No adverse reaction; IV Status: Completed infusion; IV Intake: hb 0.25ml 14:44 Drug: Magnesium Sulfate 2 grams Route: IVPB; Infused Over: 2 hrs; Site: right upper arm;hb 16:45 Follow up: Response: No adverse reaction; IV Status: Completed infusion; IV Intake: 50mlhb 15:11 Drug: Octreotide Infusion (50 mcg/hr) - (Octreotide 500 mcg, NS 0.9% 500 ml) Route: IV; hb Rate: 50 ml/hr; Site: right upper arm; 17:00 Follow up: Response: No adverse reaction; IV Status: Infusion continued upon transfer; hb IV Intake: 100ml 15:11 Drug: ProTONIX 8 mg/hr Route: IV; Rate: 25 ml/hr; Site: left forearm; hb 17:00 Follow up: Response: No adverse reaction; IV Status: Infusion continued upon transfer; hb IV Intake: 50ml 15:44 Drug: Rocephin 1 grams Route: IV; Rate: calculated rate; Site: left forearm; hb 17:07 Follow up: Response: No adverse reaction hb Intake: 15:11 IV: 0ml; Total: 0ml. hb 16:45 IV: 50ml; Total: 50ml. hb 17:00 IV: 50ml; Total: 100ml. hb 17:00 IV: 100ml; Total: 200ml. hb Outcome: 15:19 ER care complete, transfer ordered by MD. hunt 17:00 Transferred by ground EMS to [facility]. hb 17:00 Condition: stable 17:00 Instructed on the need for transfer, Demonstrated understanding of instructions. 17:06 Patient left the ED. Signatures: Dispatcher [employer] EDMS Jose Garrett jb1 Adriana Santoro Shelby, RN RN Lico Lucas PA PA jr8 Andie Lyon, unload associate EKG Tat1 Thais Gambino RN RN Shaneka Mcduffie RN RN Luna Li Corrections: (The following items were deleted from the chart) 13:37 13:32 Acuity: KIRILL 3 ss
[2019-07-11] MEDS ORDERED: CEFTRIAXONE/SWI 1gm 1 GM/10 ML SYR ONE (15:33)
[2019-07-11 17:18] VITALS: TEMP 97.1
[2019-07-11 17:19] VITALS: O2SAT 99
--- NOTE | 2019-07-11 17:19 | EKG ---
Test Date: 2019-07-11 Test Time: 13:39:47 Metrologist: AG/T MEASUREMENT RESULTS: Intervals: Rate: 87 UT: 156 QRSD: 96 QT: 400 QTc: 481 [place]: P: 42 UT: 156 QRS: -39 T: 32 INTERPRETIVE STATEMENTS: Normal sinus rhythm Left axis deviation Inferior infarct, age undetermined Cannot rule out Anterior infarct, age undetermined Abnormal ECG Compared to ECG 04/21/2019 13:31:53 Left-axis deviation now present Sinus tachycardia no longer present Indeterminate axis no longer present Myocardial infarct finding still present Electronically Signed On 07-11-19 17:18:28 CDT by Ross Eddy
[2019-07-11 17:21] VITALS: BP 96/67
== END 2019-07-11 17:06 | disposition short-term general hospital (02) ==
LOC: ER 13:28
DX: K92.2 Gastrointestinal hemorrhage, unspecified (principal); F17.210 Nicotine dependence, cigarettes, uncomplicated
CPT/HCPCS: 36415; 71045; 80048; 80076; 82272; 83735; 83880; 84484; 85025; 85610; 86850; 86870; 86900; 86901; 87040; 93005; 99285; C9113; J0696; J2354; J3475; J7030; J7040

== ENCOUNTER 2019-12-16 15:05 | Emergency (ER) | payer SELFPAY ==
--- OUTSIDE RECORDS SUMMARY | 2019-12-16 15:07 | XMS REPORT | Encounter Summary ---
:1975 Author Reason for Visit ER follow-up Instructions 1. Alcoholic cirrhosis HbA1c (hemoglobin A1c), blood CBC w/ diff CMP, serum or plasma lipid panel, blood TSH, ultra-sensitive, serum HIV 1+2 AB + HIV 1 p24 Ag, qualitative immunoassay, serum lactulose 20 gram/30 mL oral solution gastroenterology referral 2. Immunization Adacel (Tdap Adolesn/Adult)(PF)2 Lf-(2.5-5-3-5)-5 Lf/0.5 mL IM syringe Engerix-B (PF) 20 mcg/mL intramuscular suspension Discussion Note: None recorded.Patient educational handouts: No information available. Plan of Care Reminders Provider Appointments Est Pt on or around [facility] 08/20/2019 MD Megan Est Pt 08/27/2019 [facility] 2:30PM MD Megan Lab HbA1C (Hemoglobin 08/20/2019 [facility] a1C), Blood CBC W/ Diff 08/20/2019 [facility] CMP, Serum or 08/20/2019 [facility] Plasma Lipid Panel, 08/20/2019 [facility] Blood TSH, 08/20/2019 [facility] Ultra-sensitive, Serum HIV 1+2 AB + HIV 08/20/2019 [facility] 1 P24 Ag, Qualitative Immunoassay, Serum Referral Gastroenterology 08/07/2019 [place] Referral Lexx [facility] Procedures None recorded. Surgeries None recorded. Imaging None recorded. Medications Name Start Date folic acid lactulose 20 gram/30 mL oral solution Take 45 mL 3 times a day by oral route. Medications Administered None recorded. Vitals Height Weight BMI Blood Pressure 5 ft 6 in 217.6 lbs 35.1 kg/m2 110/70 mm[Hg] Results Lab Results None recorded. Allergies Code Code System Name Reaction Severity Status Onset NKDA Problems Name Status Onset Date Source Acute Posthemorrhagic Anemia Active 04/21/2019 External Alcohol Abuse Active 04/21/2019 External Metabolic Encephalopathy Active 04/21/2019 External Bleeding Esophageal Varices Active 04/21/2019 External Alcoholic Cirrhosis Active 04/21/2019 External Portal Hypertension Active 04/21/2019 External Gastrointestinal Hemorrhage Active 04/21/2019 External Hematemesis Active 04/21/2019 External Viral Hepatitis C Active 04/25/2019 External Tobacco User Active 04/25/2019 External Upper Gastrointestinal Bleeding Active 07/11/2019 External Lightheadedness Active 07/11/2019 External Chronic Obstructive Lung Disease Active 08/06/2019 Procedures Date Name Performed by Reconstruction of Upper Arm Information not available Throat Surgery Procedure Information not available Vaccine List Vaccine Type Hep B, adult 08/06/20191 mL Tdap 08/06/20190.5 mL Social History Tobacco Smoking Status Heavy Tobacco Smoker (1 PPD) Past Encounters 08/06/2019 Alcoholic Cirrhosis; Immunization Alma Guzman MD: [address], [place] [address], Ph. History of Present Illness Note: <p>patient here for hospital follow up, is here to establish care. he needs PCP for lab work. rf</p> Review of Systems Comprehensive General Adult ROS Reported By: Patient Constitutional: Constitutional: no fever, no chills, no malaise Cardiovascular: Cardiovascular: no chest pain, no palpitations Respiratory: Respiratory: no cough, no shortness of breath Gastrointestinal: Gastrointestinal: no abdominal pain, no nausea, no vomiting Musculoskeletal: Musculoskeletal: no back pain Integumentary: Skin: no rashes Neurologic: Neurologic: no dizziness Endocrine: Endocrine: no fatigue Physical Exam General Adult Exam Reported By: Patient Constitutional: General Appearance: healthy-appearing, well-developed, obese. Level of Distress: NAD. Ambulation: ambulating normally Psychiatric: Mental Status: active and alert Neck: Lymph Nodes: no cervical LAD Lungs: Respiratory effort: no dyspnea. Auscultation: breath sounds normal, no rales/crackles, expiratory wheezing Cardiovascular: Heart Auscultation: RRR, no murmurs Abdomen: Inspection and Palpation: soft, non-distended, no tenderness Musculoskeletal:: Joints, Bones, and Muscles: normal movement of all extremities. Extremities: no edema Skin: Inspection and palpation: no rash
--- OUTSIDE RECORDS SUMMARY | 2019-12-16 15:08 | XMS REPORT | Encounter Summary ---
:1975 Author Reason for Visit lab follow-up Instructions 1. Alcoholic cirrhosis 2. Hypothyroidism hypothyroidism: care instructions levothyroxine 50 mcg tablet US, thyroid TSH + free T4, serum 3. Hypokalemia hypokalemia: care instructions CMP, serum or plasma 4. Anemia anemia: care instructions CBC w/ auto diff 5. Cough cough: care instructions Bromfed DM 2 mg-30 mg-10 mg/5 mL oral syrup 6. Obesity weight management referral when you are overweight: care instructions Discussion Note: None recorded. Plan of Care Reminders Provider Appointments Est Pt on or around [facility] 10/08/2019 MD Megan Return to on or around [facility] 10/19/2019 MD Lexx Est Pt 10/20/2019 [facility] 2:00PM MD Megan Lab TSH + Free 10/22/2019 [facility] T4, Serum CMP, Serum 10/22/2019 [facility] or Plasma CBC W/ Auto 10/22/2019 [facility] Diff Referral Weight 08/27/2019 Management Referral Procedures None recorded. Surgeries None recorded. Imaging US, Thyroid 08/27/2019 [facility] (US Imaging) Medications Name Start Date Bromfed DM 2 mg-30 mg-10 mg/5 mL oral syrup Take 10 mL every 4 hours by oral route as needed. lactulose 20 gram/30 mL oral solution Take 45 mL 3 times a day by oral route. levothyroxine 50 mcg tablet Take 1 tablet every day by oral route. Medications Administered None recorded. Vitals Height Weight BMI Blood Pressure 5 ft 6 in 225.8 lbs 36.4 kg/m2 120/72 mm[Hg] Results Lab Results Date Name Specimen Result Interpretation Description Value Range Status Address 08/11/2019 CBC W/ Auto Wbc 4.9 3.4-10.8 Final [facility] Diff x10e3/uL x10e3/uL PSC: [address], Roddy Rbc 4.14 4.14-5.80 Final [facility] x10e6/uL x10e6/uL PSC: [address] Below Hemoglobin 9.7 g/dL 13.0-17.7 Final [facility] Low g/dL PSC: Breanne Normal [address] Below Hematocrit 32.0 % 37.5-51.0 Final [facility] Low % PSC: Breanne Normal [address] Below Mcv 77 fL 79-97 fL Final [facility] Low PSC: Breanne Normal [address] Below Mch 23.4 pg 26.6-33.0 Final [facility] [address] [address] Below Mchc 30.3 g/dL 31.5-35.7 Final [facility] Low g/dL PSC: Breanne Normal [address] Above Rdw 20.2 % 12.3-15.4 Final [facility] High % PSC: Breanne Normal [address] Below Platelets 124 150-450 Final [facility] Low x10e3/uL x10e3/uL PSC: [address] Neutrophils 33 % not Final [facility] estab. % PSC: [address] Lymphs 45 % not Final [facility] estab. % PSC: [address] Monocytes 12 % not Final [facility] estab. % PSC: [address] Eos 7 % not Final [facility] estab. % PSC: [address] Basos 3 % not Final [facility] estab. % PSC: [address] Immature fur repair inspector Cancelled [facility] Cells PSC: [address] Neutrophils 1.6 1.4-7.0 Final [facility] (Absolute) x10e3/uL x10e3/uL PSC: [address] Lymphs 2.2 0.7-3.1 Final [facility] (Absolute) x10e3/uL x10e3/uL PSC: [address] Monocytes(ab 0.6 0.1-0.9 Final [facility] solute) x10e3/uL x10e3/uL PSC: [address] Eos 0.3 0.0-0.4 Final [facility] (Absolute) x10e3/uL x10e3/uL PSC: [address] Baso 0.1 0.0-0.2 Final [facility] (Absolute) x10e3/uL x10e3/uL PSC: [address] Immature 0 % not Final [facility] Granulocytes estab. % PSC: [address] Immature 0.0 0.0-0.1 Final [facility] Grans (Abs) x10e3/uL x10e3/uL PSC: [address] Nrbc fur repair inspector Cancelled [facility] PSC: [address] Hematology fur repair inspector Cancelled [facility] Comments: PSC: [address] 08/11/2019 CMP, Serum or Glucose 89 mg/dL 65-99 Final [facility] Plasma mg/dL PSC: [address] Bun 6 mg/dL 6-24 Final [facility] mg/dL PSC: [address] Creatinine 0.84 0.76-1.27 Final [facility] mg/dL mg/dL PSC: [address] eGFR If 105 >59 Final [facility] Nonafricn AM mL/min/1. mL/min/1. PSC: [facility] [address] eGFR If 121 >59 Final [facility] Africn AM mL/min/1. mL/min/1. PSC: [facility] [address] Below BUN/creatini 7 9-20 Final [facility] Low ne Ratio [facility] [address] Sodium 141 134-144 Final [facility] mmol/L mmol/L PSC: [address] Below Potassium 3.3 3.5-5.2 Final [facility] Low mmol/L mmol/L [facility] [address] Chloride 100 96-106 Final [facility] mmol/L mmol/L PSC: [address] Carbon 26 mmol/L 20-29 Final [facility] Dioxide, mmol/L PSC: [facility] Total [address] Calcium 9.9 mg/dL 8.7-10.2 Final [facility] mg/dL PSC: [address] Protein, 7.6 g/dL 6.0-8.5 Final [facility] Total g/dL PSC: [address] Albumin 3.8 g/dL 3.5-5.5 Final [facility] g/dL PSC: [address] Globulin, 3.8 g/dL 1.5-4.5 Final [facility] Total g/dL PSC: [address] Below A/g Ratio 1.0 1.2-2.2 Final [facility] Low PSC: [address] Above Bilirubin, 1.3 mg/dL 0.0-1.2 Final [facility] High Total mg/dL PSC: [address] Above Alkaline 130 IU/L 39-117 Final [facility] High Phosphatase IU/L PSC: [address] Above Ast (Sgot) 137 IU/L 0-40 IU/L Final [facility] High PSC: [address] Above Alt (Sgpt) 56 IU/L 0-44 IU/L Final [facility] High PSC: [address] 08/11/2019 Lipid Panel, Cholesterol, 107 mg/dL 100-199 Final [facility] Blood Total mg/dL PSC: [address] Triglyceride 83 mg/dL 0-149 Final [facility] s mg/dL PSC: [address] Below HDL 31 mg/dL >39 mg/dL Final [facility] Low Cholesterol PSC: [address] VLDL 17 mg/dL 5-40 Final [facility] Cholesterol mg/dL PSC: [address] LDL 59 mg/dL 0-99 Final [facility] Cholesterol mg/dL PSC: [address] Comment: fur repair inspector Cancelled [facility] PSC: [address] T. chol/HDL 3.5 ratio 0.0-5.0 Final [facility] Ratio ratio PSC: [address] LDL/HDL 1.9 ratio 0.0-3.6 Final [facility] Ratio ratio PSC: [address], [place] 08/11/2019 HbA1C Hemoglobin 5.2 % 4.8-5.6 % Final [facility] (Hemoglobin a1C PSC: 720 a1C), Blood [address], [place] 08/11/2019 HIV 1+2 AB + HIV Screen non non Final [facility] HIV 1 P24 Ag, 4TH reactive reactive PSC: [address] Qualitative [address] Immunoassay, Wrfx Dr, Serum [place] 08/11/2019 TSH, Above Tsh 116.800 0.450-4.5 Final [facility] Ultra-sensitiv High uIU/mL 00 uIU/mL PSC: 720 e, Serum Normal [address], [place] Below T4,Free 0.21 0.82-1.77 Final [facility] Low (Direct) NG/dL NG/dL PSC: [address], [place] 08/11/2019 Cardiovascular Interpretati note Final [facility] Assessment on Corporatio Panel, Serum n: [address], [place] Pdf Image . Final [facility] Corporatio n: [address], [place] Allergies Code Code System Name Reaction Severity [...] available Throat Surgery Procedure Information not available 08/27/2019 US, Thyroid [facility] ([facility] Imaging) [address] [place], [place] [id number] (Work Place) Vaccine List Vaccine Type Hep B, adult 08/06/20191 mL Tdap 08/06/20190.5 mL Social History Tobacco Smoking Status Heavy Tobacco Smoker (1 PPD) Past Encounters 08/27/2019 Alcoholic Cirrhosis; Hypothyroidism; Hypokalemia; Anemia; Cough; Obesity Alma Guzman MD: [address], [place] [address], Ph. ([phone] 08/19/2019 Alcoholic Cirrhosis; Chronic Hepatitis C; Portal Hypertension; Tobacco User; Hepatic Encephalopathy Alexander Hallman MD: [address], [place] [address], Ph. 08/06/2019 Alcoholic Cirrhosis; Immunization Alma Guzman MD: [address], [place] [address], Ph. ([phone] History of Present Illness Note: <p>patient here for lab results. c/o having a cold last week that seemed to have cleared up but started feeling stuffy, sinus pressure and coughing x 3 days neftaly weak and feverish last night. rf </p> Review of Systems Comprehensive General Adult ROS Reported By: Patient Constitutional: Constitutional: no fever, no chills, no malaise Cardiovascular: Cardiovascular: no chest pain, no palpitations Respiratory: Respiratory: no shortness of breath, cough Gastrointestinal: Gastrointestinal: no abdominal pain, no nausea, no vomiting Musculoskeletal: Musculoskeletal: no back pain Integumentary: Skin: no rashes Neurologic: Neurologic: no dizziness Endocrine: Endocrine: no fatigue Physical Exam General Adult Exam Reported By: Patient Constitutional: General Appearance: healthy-appearing, well-nourished, well-developed. Level of Distress: NAD. Ambulation: ambulating normally Psychiatric: Mental Status: active and alert ENMT: Ears: EACs clear, TMs clear Neck: Lymph Nodes: no cervical LAD Lungs: Respiratory effort: no dyspnea. Auscultation: breath sounds normal, no rales/crackles, expiratory wheezing Cardiovascular: Heart Auscultation: RRR, no murmurs Abdomen: Inspection and Palpation: soft, non-distended, no tenderness Musculoskeletal:: Joints, Bones, and Muscles: normal movement of all extremities. Extremities: no edema Skin: Inspection and palpation: no rash
--- OUTSIDE RECORDS SUMMARY | 2019-12-16 15:08 | XMS REPORT | Encounter Summary ---
:1975 Author Reason for Visit Alcoholic cirrhosis Instructions 1. Alcoholic cirrhosis 2. Chronic hepatitis C hepatitis C genotype, serum or plasma unlisted lab - HIV-2 qpcr 3. Portal hypertension 4. Tobacco user 5. Hepatic encephalopathy Discussion Note: None recorded.Patient educational handouts: No information available. Plan of Care Reminders Provider Appointments Est Pt 08/27/2019 [place] 2:30PM MD Megan Return to on or around [facility] Office 10/19/2019 MD Lexx Lab Hepatitis C 08/19/2019 [facility] Genotype, Serum or Plasma Unlisted Lab 08/19/2019 [facility] Referral None recorded. Procedures None recorded. Surgeries None recorded. Imaging None recorded. Medications Name Start Date lactulose 20 gram/30 mL oral solution Take 45 mL 3 times a day by oral route. Medications Administered None recorded. Vitals Height Weight BMI Blood Pressure 5 ft 6 in 222 lbs 35.8 kg/m2 122/70 mm[Hg] Results Lab Results Date Name Specimen Result Interpretation Description Value Range Status Address 08/11/2019 CBC W/ Auto Wbc 4.9 3.4-10.8 Final [facility] Diff x10e3/uL x10e3/uL PSC: [address] Rbc 4.14 4.14-5.80 Final [facility] x10e6/uL x10e6/uL PSC: [address] Below Hemoglobin 9.7 g/dL 13.0-17.7 Final [facility] Low g/dL PSC: [address] Below Hematocrit 32.0 % 37.5-51.0 Final [facility] Low % PSC: [place] Normal [address] Below Mcv 77 fL 79-97 fL Final [facility] Low PSC: [address] Below Mch 23.4 pg 26.6-33.0 Final [facility] Low pg PSC: [place] Normal [address] Below Mchc 30.3 g/dL 31.5-35.7 Final [facility] Low g/dL PSC: Breanne Normal [address] Above Rdw 20.2 % 12.3-15.4 Final [facility] High % PSC: Breanne Normal [address] Below Platelets 124 150-450 Final [facility] Low x10e3/uL x10e3/uL PSC: Breanne Normal [address] Neutrophils 33 % not Final [facility] estab. % PSC: [address] Lymphs 45 % not Final [facility] estab. % PSC: [address] Monocytes 12 % not Final [facility] estab. % PSC: [address] Eos 7 % not Final [facility] estab. % PSC: [address] Basos 3 % not Final [facility] estab. % PSC: [address] Immature parking line painter Cancelled [facility] Cells PSC: [address] [...] x10e3/uL x10e3/uL PSC: [address] Nrbc parking line painter Cancelled [facility] PSC: [address] Hematology parking line painter Cancelled [facility] Comments: [facility] 08/11/2019 CMP, Serum or Glucose 89 mg/dL 65-99 Final [facility] Plasma mg/dL PSC: [address] Bun 6 mg/dL 6-24 Final [facility] mg/dL PSC: [address] Creatinine 0.84 0.76-1.27 Final [facility] mg/dL mg/dL PSC: [address] eGFR If 105 >59 Final [facility] Nonafricn AM mL/min/1. mL/min/1. PSC: [address] eGFR If 121 >59 Final [facility] Africn AM mL/min/1. mL/min/1. PSC: [address] Below BUN/creatini 7 9-20 Final [facility] Low ne Ratio PSC: [address] Sodium 141 134-144 Final [facility] mmol/L mmol/L PSC: [address] Below Potassium 3.3 3.5-5.2 Final [facility] Low mmol/L mmol/L PSC: [address] Chloride 100 96-106 Final [facility] mmol/L mmol/L PSC: [address] Carbon 26 mmol/L 20-29 Final [facility] Dioxide, mmol/L PSC: [address] Calcium 9.9 mg/dL 8.7-10.2 Final [facility] mg/dL PSC: [address] Protein, 7.6 g/dL 6.0-8.5 Final [facility] Total g/dL PSC: [address] Albumin 3.8 g/dL 3.5-5.5 Final [facility] g/dL PSC: [address] Globulin, 3.8 g/dL 1.5-4.5 Final [facility] Total g/dL PSC: [address] Below A/g Ratio 1.0 1.2-2.2 Final [facility] Low PSC: [place] Normal [address] Above Bilirubin, 1.3 [...] Final [facility] Cholesterol mg/dL PSC: [address] [place] Comment: parking line painter Cancelled [facility] PSC: [address], [place] T. chol/HDL 3.5 ratio 0.0-5.0 Final [facility] Ratio ratio PSC: [address] LDL/HDL 1.9 ratio 0.0-3.6 Final [facility] Ratio ratio PSC: [address] 08/11/2019 HbA1C Hemoglobin 5.2 % 4.8-5.6 % Final [facility] (Hemoglobin a1C PSC: 7206 a1C), Blood [address] 08/11/2019 HIV 1+2 AB + HIV Screen non non Final [facility] HIV 1 P24 Ag, 4TH reactive reactive PSC: [address] Qualitative [address] Immunoassay, Wrfx , Serum [place] 08/11/2019 TSH, Above Tsh 116.800 0.450-4.5 Final [facility] Ultra-sensitiv High uIU/mL 00 uIU/mL PSC: 7206 e, Serum Normal N [address] Below T4,Free 0.21 0.82-1.77 Final [facility] Low (Direct) NG/dL NG/dL PSC: [address] 08/11/2019 Cardiovascular Interpretati note Final [facility] Assessment on Corporatio Panel, Serum n: [address] Pdf Image . Final [facility] Corporatio n: [address] Allergies Code Code System Name Reaction Severity [...] Heavy Tobacco Smoker (1 PPD) Past Encounters 08/19/2019 Alcoholic Cirrhosis; Chronic Hepatitis C; Portal Hypertension; Tobacco User; Hepatic Encephalopathy Alexander Hallman MD: [address], [place] [address], Ph. 08/06/2019 Alcoholic Cirrhosis; Immunization Alma Guzman MD: [address], [place] [address], Ph. History of Present Illness Note: <p>est care for cirrhosis .................BM</p><p> 44 y/o WM referred by Dr. Guzman for mgmt of cirrhosis with EtOH abuse history and Hep C. Pt has undergone EGD for variceal banding dating back to . Bleed treated in March and when recurred Oct pt underwent TIPS. Denies further weakness, lightheadedness since. Occas dark stools depending on diet. Using lactulose since D/C without any confusion or forgetfulness, has decreased from tid to bid. Little bloating. Good appetite and po intake. No ascites or peripheral edema. No easy bruising or bleeding. Had 1st Hep B vaccine 2 wks ago. </p>Review of Systems: ROS as noted in the HPI Review of Systems None recorded. Physical Exam Acute Gastroenteritis Reported By: Patient General:: General: well-developed, well-nourished, NAD Skin:: Skin: warm, dry, good turgor, pink, no rashes/lesions, hydrated Head:: Head: normal fontanel, normal shape, symmetry Neck:: Neck: supple, no mass, no adenopathy, no thyromegaly Eyes:: Eyes: normal conjunctiva, normal sclera, anicteric, PERRLA, normal lids Mouth, Throat:: Mouth, Throat: moist mucosa, uvula midline, no erythema or exudates Chest:: Chest: symmetry, clear breath sounds, normal respirations, no retractions Heart:: Heart: regular rate and rhythm, no murmurs, pulses 2+ in all extremities Abdomen:: Abdomen: nontender, nondistended, positive bowel sounds in all four quadrants, no masses Extremities:: Extremities: full range of motion, good muscle mass, good muscle tone, good muscle strength
--- OUTSIDE RECORDS SUMMARY | 2019-12-16 15:08 | XMS REPORT | Encounter Summary ---
:1975 Author Reason for Visit lab follow-up Instructions 1. Alcoholic cirrhosis lactulose 20 gram/30 mL oral solution 2. Cigarette smoker stopping smoking: care instructions 3. Hypokalemia hypokalemia: care instructions potassium chloride ER 20 mEq tablet,extended release CMP, serum or plasma 4. Anemia anemia: care instructions ferrous sulfate 325 mg (65 mg iron) tablet CBC w/ auto diff 5. Hypothyroidism hypothyroidism: care instructions levothyroxine 75 mcg tablet TSH + free T4, serum 6. Immunization Engerix-B (PF) 20 mcg/mL intramuscular suspension Discussion Note: None recorded. Plan of Care Reminders Provider Appointments Est Pt 12/17/2019 Alma Guzman, 9:00AM Lab TSH + Free 12/11/2019 [facility] T4, Serum CBC W/ Auto 12/11/2019 [facility] Diff CMP, Serum 12/11/2019 [facility] or Plasma Referral None recorded. Procedures None recorded. Surgeries None recorded. Imaging None recorded. Medications Name Start Date ferrous sulfate 325 mg (65 mg iron) tablet Take 1 tablet 3 times a day by oral route. lactulose 20 gram/30 mL oral solution Take 45 mL 3 times a day by oral route. levothyroxine 50 mcg tablet Take 1 tablet every day by oral route. levothyroxine 75 mcg tablet Take 1 tablet every day by oral route. potassium chloride ER 20 mEq tablet,extended release Take 1 tablet every day by oral route. Medications Administered None recorded. Vitals Height Weight BMI Blood Pressure 5 ft 6 in 220.7 lbs 35.6 kg/m2 120/70 mm[Hg] Results Lab Results Date Name Specimen Result Interpretation Description Value Range Status Address 10/16/2019 TSH + Above Tsh 23.450 0.450-4.500 Final [facility] Free T4, High uIU/mL uIU/mL PSC: Serum Normal [address] Below T4,Free(direc 0.53 0.82-1.77 Final [facility] Low t) NG/dL NG/dL PSC: Normal [address], [place] 10/16/2019 CBC W/ Wbc 5.1 3.4-10.8 Final [facility] Auto x10e3/uL x10e3/uL PSC: Diff [address] Rbc 4.56 4.14-5.80 Final [facility] x10e6/uL x10e6/uL PSC: [address] Below Hemoglobin 9.4 g/dL 13.0-17.7 Final [facility] Low g/dL PSC: Normal [address] Below Hematocrit 32.6 % 37.5-51.0 % Final [facility] Low PSC: Normal [address] Below Mcv 72 fL 79-97 fL Final [facility] Low PSC: Normal [address] Below Mch 20.6 pg 26.6-33.0 pg Final [facility] Low PSC: Normal [address] Below Mchc 28.8 31.5-35.7 Final [facility] Low g/dL g/dL PSC: Normal [address] Above Rdw 19.2 % 11.6-15.4 % Final [facility] High PSC: Normal [address] Platelets 152 150-450 Final [facility] x10e3/uL x10e3/uL PSC: [address] Neutrophils 39 % not estab. % Final [facility] PSC: [address] Lymphs 38 % not estab. % Final [facility] PSC: [address] Monocytes 17 % not estab. % Final [facility] PSC: [address] Eos 5 % not estab. % Final [facility] PSC: [address] Basos 1 % not estab. % Final [facility] PSC: [address] Immature rn medication Cancelled [facility] Cells PSC: [address] Neutrophils 2.0 1.4-7.0 Final [facility] (Absolute) x10e3/uL x10e3/uL PSC: [address] Lymphs 1.9 0.7-3.1 Final [facility] (Absolute) x10e3/uL x10e3/uL PSC: [address] Monocytes(abs 0.9 0.1-0.9 Final [facility] olute) x10e3/uL x10e3/uL PSC: [address] Eos 0.3 0.0-0.4 Final [facility] (Absolute) x10e3/uL x10e3/uL PSC: [address] Baso 0.1 0.0-0.2 Final [facility] (Absolute) x10e3/uL x10e3/uL PSC: [address] Immature 0 % not estab. % Final [facility] Granulocytes PSC: [address] Immature 0.0 0.0-0.1 Final [facility] Grans (Abs) x10e3/uL x10e3/uL PSC: [address] Nrbc rn medication Cancelled [facility] PSC: [address] Hematology rn medication Cancelled [facility] Comments: PSC: [address] 10/16/2019 CMP, Above Glucose 111 65-99 mg/dL Final [facility] Serum or High mg/dL PSC: Plasma Normal [address] Below Bun 5 mg/dL 6-24 mg/dL Final [facility] Low PSC: Normal [address] Creatinine 0.76 0.76-1.27 Final [facility] mg/dL mg/dL PSC: [address] eGFR If 109 >59 Final [facility] Nonafricn AM mL/min/1 mL/min/1.73 PSC: .[address] eGFR If 126 >59 Final [facility] Africn AM mL/min/1 mL/min/1.73 PSC: .[address] Below BUN/creatinin 7 9-20 Final [facility] Low e Ratio PSC: Normal [address] Sodium 141 134-144 Final [facility] mmol/L mmol/L PSC: [address] Below Potassium 3.4 3.5-5.2 Final [facility] Low mmol/L mmol/L PSC: Normal [address] Chloride 100 96-106 mmol/L Final [facility] mmol/L PSC: [address] Carbon 24 20-29 mmol/L Final [facility] Dioxide, Total mmol/L PSC: [address] Calcium 9.5 8.7-10.2 Final [facility] mg/dL mg/dL PSC: [address] Protein, 7.2 g/dL 6.0-8.5 g/dL Final [facility] Total PSC: [address] Below Albumin 3.3 g/dL 4.0-5.0 g/dL Final [facility] Low PSC: Normal [address] Globulin, 3.9 g/dL 1.5-4.5 g/dL Final [facility] Total PSC: [address] Below A/g Ratio 0.8 1.2-2.2 Final [facility] Low PSC: Normal [address] Bilirubin, 1.0 0.0-1.2 mg/dL Final [facility] Total mg/dL PSC: [address] Alkaline 98 IU/L 39-117 IU/L Final [facility] Phosphatase PSC: [address] Above Ast (Sgot) 58 IU/L 0-40 IU/L Final [facility] High PSC: Normal [address] Alt (Sgpt) 22 IU/L 0-44 IU/L Final [facility] PSC: [address] Allergies Code Code System Name Reaction [...] Vaccine List Vaccine Type Hep B, adult mL 10/20/20191 mL Tdap 08/06/20190.5 mL Social History Tobacco Smoking Status Heavy Tobacco Smoker (1 PPD) Past Encounters 10/20/2019 Alcoholic Cirrhosis; Cigarette Smoker; Hypokalemia; Anemia; Hypothyroidism; Immunization Alma Guzman MD: [address], [place] [address], Ph. History of Present Illness Note: <p>patient here for lab results. will get flu at next ov. rf < /p> Review of Systems Comprehensive General Adult ROS [...] no dyspnea. Auscultation: breath sounds normal, no wheezing, no rales/crackles Cardiovascular: Heart Auscultation: RRR, no murmurs Abdomen: Inspection and Palpation: soft, non-distended, no tenderness Musculoskeletal:: Joints, Bones, and Muscles: normal movement of all extremities. Extremities: no edema Skin: Inspection and palpation: no rash
--- OUTSIDE RECORDS SUMMARY | 2019-12-16 15:10 | XMS REPORT ---
:1975 [facility] Address [address] [place] [address] Care Team Providers Name Role Phone TASHIANA TIMO SHERIDAN NOEDANA Unavailable Unavailable BRIGIDO CORRALES Unavailable Unavailable Problems This patient has no known problems. Allergies, Adverse Reactions, Alerts This patient has no known allergies or adverse reactions. Medications This patient has no known medications. Results Test Description Test Time Test Comments Text Results Atomic Results Result Comments COMPREHENSIVE METABOLIC PANEL 2019-07-15 04:44:00 Test Item Value Reference Range Comments TOTAL PROTEIN (BEAKER) (test 7.3 gm/dL 6.0-8.3 hdjp=661) ALBUMIN (BEAKER) (test 3.6 g/dL 3.5-5.0 biny=3514) ALKALINE PHOSPHATASE 61 U/L 40-150 (BEAKER) (test uylk=595) BILIRUBIN TOTAL (BEAKER) 1.1 mg/dL 0.2-1.2 (test kaqy=215) SODIUM (BEAKER) (test 138 meq/L 136-145 ympq=514) POTASSIUM (BEAKER) (test 4.0 meq/L 3.5-5.1 rdwv=858) CHLORIDE (BEAKER) (test 102 meq/L 98-107 uvwq=974) CO2 (BEAKER) (test bzct=378) 30 meq/L 22-29 BLOOD UREA NITROGEN (BEAKER) 6 mg/dL 7-21 (test qqph=539) CREATININE (BEAKER) (test 0.88 mg/dL 0.57-1.25 qflb=940) GLUCOSE RANDOM (BEAKER) 132 mg/dL 70-105 (test wriz=498) CALCIUM (BEAKER) (test 8.9 mg/dL 8.4-10.2 dxcj=912) AST (SGOT) (BEAKER) (test 79 U/L 5-34 rkuo=099) ALT (SGPT) (BEAKER) (test 33 U/L 6-55 gwcg=177) EGFR (BEAKER) (test 93 mL/min/1.73 sq m ESTIMATED GFR IS NOT fhnx=6259) ACCURATE CREATININE CLEARANCE IN PREDICTING GLOMERULAR FILTRATION RATE. ESTIMATED GFR IS NOT APPLICABLE FOR DIALYSIS PATIENTS. CBC (HEMOGRAM ONLY)2019-07-15 04:43:00 Test Item Value Reference Range Comments WHITE BLOOD CELL COUNT (BEAKER) (test huch=273) 8.0 K/ L 3.5-10.5 RED BLOOD CELL COUNT (BEAKER) (test ynuj=854) 3.45 M/ L 4.63-6.08 HEMOGLOBIN (BEAKER) (test ccdf=114) 8.6 GM/DL 13.7-17.5 HEMATOCRIT (BEAKER) (test gkix=386) 29.0 % 40.1-51.0 MEAN CORPUSCULAR VOLUME (BEAKER) (test gmmc=717) 84.1 fL 79.0-92.2 MEAN CORPUSCULAR HEMOGLOBIN (BEAKER) (test 24.9 pg 25.7-32.2 yakv=981) MEAN CORPUSCULAR HEMOGLOBIN CONC (BEAKER) (test 29.7 GM/DL 32.3-36.5 emov=202) RED CELL DISTRIBUTION WIDTH (BEAKER) (test 19.1 % 11.6-14.4 mwdd=158) PLATELET COUNT (BEAKER) (test oite=969) 114 K/CU MM 150-450 NUCLEATED RED BLOOD CELLS (BEAKER) (test 0 /100 WBC 0-0 kzjc=671) MALINI [id number] 16:10:00Reason for exam:->Recurrent GI bleedFINAL REPORT Transjugular intrahepatic portosystemic shunt, . History: Respiratory recurrent esophageal variceal bleeding. Modality: Fluoroscopy. Sedation: General anesthesia was utilized. The vital signs were monitoredthroughout the procedure by anesthesia and remained stable. International Affairs Vice President: Iwona.Driver Wheelchair: Rajesh. Approach: Right internal jugular vein Estimated blood loss: < 5 cc. Specimen: None. Fluoroscopy Time: 19.6 min. Dose (Ka,r): 1386 mGy. Technique: Informed written consent was obtained. Discussion of risks, benefits, and alternatives were made with the patient. The patient expressed understanding and agreed to proceed. All elements maximal sterilebarrier technique was utilized for this procedure, including utilization of sterile scrub solution for skin prep, a large sterile sheet to cover the areas of the patient that were not prepped, and handhygiene, mask, head covering, and sterile gown for performing radiologist and scrub technologist. Ultrasound evaluation showed a patent and compressible right internal jugular vein, which was punctured under direct real- time ultrasound guidance with a micropuncture needle. An ultrasound image was saved to PACS. A 0.018 inch wire was placed through the needle into the right atrium. A 4 [place] micropuncture sheath was placed. A 0.035 inch J-wire was placed through the micropuncture sheath and the sheath was exchanged for a 9 [place] sheath. A 5 [place] angled tip catheter was used to select the right hepatic vein. Venogram was performed confirming position within the right hepatic vein. A [place] needle was advanced through the sheath into the right hepatic vein. A long 21-gauge needle was advanced through the [place]into needle coaxially for 3 passes within the liver, with entry into the right portal vein upon the third pass. A 0.018 inch coronary wire was advanced into the right portal vein. A tapered 4 [place] glide catheter was advanced over the coronary wire into the portal vein. A Glidewire was advanced down the portal vein into the SMV and exchanged for Amplatz superstiff wire. A 5 [place] Cobra catheter was placed into the portal vein for a DSA run. The tract was measured at [address] 9 [address] [place] sheath was exchanged for a 10 [place]ian long sheath which was advanced over the Amplatz wire into the portal vein. A 8-10 mm x 7 cm long Viator controlled expansion covered stent was advanced down the sheath and deployed within the liver. The stent was dilated with a 9 mm x 4 cm balloon. A Cobra catheter was then placed for pressure measurements. Repeat portogram was performed. Pressures areas follows (mmHg) - Pre-TIPS: Hepatic vein 9,Portal vein 24Post-TIPS: Hepatic vein 11,Portal vein17 The catheter and sheath were removed and hemostasis was obtained with manual compression. The patient tolerated the procedure well and left the department in the stable condition. Findings: Hepatic venogram demonstrates patent right hepatic vein and intrahepatic IVC. Portogram demonstrates that the main, left, and right portal vein are patent. Coronary vein is present filling the esophageal varices initially. Post-TIPS, varices no longer opacify with contrast. Impression: Successful, uncomplicated transjugular intrahepatic portosystemicshunt with general anesthesia. Signed: Scooby Bustillo MDReport Verified Date/Time: 07/14/2019 16:10:45 Reading Location: [facility] P048 Angio Body Reading Room Electronically signed by: SCOOBY BUSTILLO M.D. on 2018 04:10 [id number] 06:22:00 Test Item Value Reference Range Comments PHOSPHORUS (BEAKER) (test zhmo=598) 2.9 mg/dL 2.3-4.7 [id number] 06:22:00 Test Item Value Reference Range Comments MAGNESIUM (BEAKER) (test lhtp=678) 1.5 mg/dL 1.6-2.6 BASIC METABOLIC [id number] 06:22:00 Test Item Value Reference Range Comments SODIUM (BEAKER) (test 138 meq/L 136-145 cmyo=234) POTASSIUM (BEAKER) (test 3.4 meq/L 3.5-5.1 mxne=686) CHLORIDE (BEAKER) (test 103 meq/L 98-107 mukp=637) CO2 (BEAKER) (test 32 meq/L 22-29 sbav=166) BLOOD UREA NITROGEN 7 mg/dL 7-21 (BEAKER) (test plhu=501) CREATININE (BEAKER) (test 0.73 mg/dL 0.57-1.25 uyci=528) GLUCOSE RANDOM (BEAKER) 97 mg/dL 70-105 (test vdmq=739) CALCIUM (BEAKER) (test 8.8 mg/dL 8.4-10.2 hftb=555) EGFR (BEAKER) (test 116 mL/min/1.73 sq m ESTIMATED GFR IS NOT onoo=2979) ACCURATE CREATININE CLEARANCE IN PREDICTING GLOMERULAR FILTRATION RATE. ESTIMATED GFR IS NOT APPLICABLE FOR DIALYSIS PATIENTS. HEPATIC FUNCTION [id number] 06:22:00 Test Item Value Reference Range Comments TOTAL PROTEIN (BEAKER) (test ieyg=569) 6.8 gm/dL 6.0-8.3 ALBUMIN (BEAKER) (test ekuo=3063) 3.4 g/dL 3.5-5.0 BILIRUBIN TOTAL (BEAKER) (test ulgn=671) 0.7 mg/dL 0.2-1.2 BILIRUBIN DIRECT (BEAKER) (test oqyb=645) 0.3 mg/dL 0.1-0.5 ALKALINE PHOSPHATASE (BEAKER) (test twyn=423) 54 U/L 40-150 AST (SGOT) (BEAKER) (test gqyg=472) 81 U/L 5-34 ALT (SGPT) (BEAKER) (test elki=860) 31 U/L 6-55 [id number] 06:09:00 Test Item Value Reference Range Comments PARTIAL THROMBOPLASTIN TIME (BEAKER) (test 31.2 seconds 22.5-36.0 satg=265) PROTHROMBIN [id number] 06:08:00 Test Item Value Reference Range Comments PROTIME (BEAKER) (test doiz=646) 15.2 seconds 11.9-14.2 INR (BEAKER) (test psct=332) 1.3 <=5.9 Effective 02/19/2019: PT Reference Range ChangeNew: 11.9-14.2 Previous: 11.7- 14.7RECOMMENDED COUMADIN/WARFARIN INR THERAPY RANGESSTANDARD DOSE: 2.0-3.0 Includes: PROPHYLAXIS for venous thrombosis, systemic embolization; TREATMENT for venous thrombosis and/or pulmonary embolus.HIGH RISK: Target INR is2.5-3.5 for patients wiht mechanical heart valves.CBC W/PLT COUNT & AUTO [id number] 05:58:00 Test Item Value Reference Range Comments WHITE BLOOD CELL COUNT 5.1 K/ L 3.5-10.5 (BEAKER) (test qvpy=112) RED BLOOD CELL COUNT (BEAKER) 3.01 M/ L 4.63-6.08 (test zzsz=861) HEMOGLOBIN (BEAKER) (test 7.6 GM/DL 13.7-17.5 bwfu=099) HEMATOCRIT (BEAKER) (test 24.1 % 40.1-51.0 math=022) MEAN CORPUSCULAR VOLUME 80.1 fL 79.0-92.2 (BEAKER) (test mgse=905) MEAN CORPUSCULAR HEMOGLOBIN 25.2 pg 25.7-32.2 (BEAKER) (test tpqn=326) MEAN CORPUSCULAR HEMOGLOBIN 31.5 GM/DL 32.3-36.5 CONC (BEAKER) (test mfib=859) RED CELL DISTRIBUTION WIDTH 18.6 % 11.6-14.4 (BEAKER) (test gheu=716) PLATELET COUNT (BEAKER) (test 86 K/CU MM 150-450 vtqk=658) MEAN PLATELET VOLUME (BEAKER) Unable to report due to (test bjbj=691) abnormal Platelet population distribution. NUCLEATED RED BLOOD CELLS 0 /100 WBC 0-0 (BEAKER) (test mxqb=540) NEUTROPHILS RELATIVE PERCENT 53 % (BEAKER) (test zjfb=338) LYMPHOCYTES RELATIVE PERCENT 31 % (BEAKER) (test hfkq=202) MONOCYTES RELATIVE PERCENT 10 % (BEAKER) (test varp=993) EOSINOPHILS RELATIVE PERCENT 5 % (BEAKER) (test llfw=991) BASOPHILS RELATIVE PERCENT 1 % (BEAKER) (test ayrf=098) NEUTROPHILS ABSOLUTE COUNT 2.66 K/ L 1.78-5.38 (BEAKER) (test aook=955) LYMPHOCYTES ABSOLUTE COUNT 1.57 K/ L 1.32-3.57 (BEAKER) (test hiln=316) MONOCYTES ABSOLUTE COUNT 0.49 K/ L 0.30-0.82 (BEAKER) (test xydr=994) EOSINOPHILS ABSOLUTE COUNT 0.26 K/ L 0.04-0.54 (BEAKER) (test dqcl=713) BASOPHILS ABSOLUTE COUNT 0.05 K/ L 0.01-0.08 (BEAKER) (test nugm=449) IMMATURE GRANULOCYTES-RELATIVE 0 % 0-1 PERCENT (BEAKER) (test xdaq=6993) POCT-GLUCOSE [id number] 12:19:00 Test Item Value Reference Range Comments POC-GLUCOSE METER (BEAKER) 128 mg/dL 70-110 TESTED AT [address] (test ccqf=7926) [facility] [id number] POCT-GLUCOSE [id number] 07:14:00 Test Item Value Reference Range Comments POC-GLUCOSE METER (BEAKER) 123 mg/dL 70-110 TESTED AT [address] (test lalo=7053) [facility] [address] CBC W/PLT COUNT & AUTO [id number] 07:14:00 Test Item Value Reference Range Comments WHITE BLOOD CELL COUNT 5.8 K/ L 3.5-10.5 (BEAKER) (test swbl=246) RED BLOOD CELL COUNT (BEAKER) 2.78 M/ L 4.63-6.08 (test gzgf=818) HEMOGLOBIN (BEAKER) (test 6.7 GM/DL 13.7-17.5 eord=264) HEMATOCRIT (BEAKER) (test 22.5 % 40.1-51.0 ktqh=199) MEAN CORPUSCULAR VOLUME 80.9 fL 79.0-92.2 (BEAKER) (test ricv=478) MEAN CORPUSCULAR HEMOGLOBIN 24.1 pg 25.7-32.2 (BEAKER) (test rjzv=145) MEAN CORPUSCULAR HEMOGLOBIN 29.8 GM/DL 32.3-36.5 CONC (BEAKER) (test ovkd=230) RED CELL DISTRIBUTION WIDTH 18.7 % 11.6-14.4 (BEAKER) (test rtkg=102) PLATELET COUNT (BEAKER) (test 90 K/CU MM 150-450 lulh=346) MEAN PLATELET VOLUME (BEAKER) Unable to report due to (test quer=042) abnormal Platelet population distribution. NUCLEATED RED BLOOD CELLS 0 /100 WBC 0-0 (BEAKER) (test ostl=758) NEUTROPHILS RELATIVE PERCENT 54 % (BEAKER) (test kffx=867) LYMPHOCYTES RELATIVE PERCENT 31 % (BEAKER) (test vhla=024) MONOCYTES RELATIVE PERCENT 10 % (BEAKER) (test lpff=224) EOSINOPHILS RELATIVE PERCENT 4 % (BEAKER) (test pvbf=332) BASOPHILS RELATIVE PERCENT 1 % (BEAKER) (test ignl=921) NEUTROPHILS ABSOLUTE COUNT 3.12 K/ L 1.78-5.38 (BEAKER) (test qtep=092) LYMPHOCYTES ABSOLUTE COUNT 1.80 K/ L 1.32-3.57 (BEAKER) (test vtzy=799) MONOCYTES ABSOLUTE COUNT 0.56 K/ L 0.30-0.82 (BEAKER) (test viyz=216) EOSINOPHILS ABSOLUTE COUNT 0.24 K/ L 0.04-0.54 (BEAKER) (test iogr=696) BASOPHILS ABSOLUTE COUNT 0.06 K/ L 0.01-0.08 (BEAKER) (test ugnz=234) IMMATURE GRANULOCYTES-RELATIVE 0 % 0-1 PERCENT (BEAKER) (test kscl=7789) [id number] 07:02:00 Test Item Value Reference Range Comments PHOSPHORUS (BEAKER) (test jcuf=616) 2.5 mg/dL 2.3-4.7 [id number] 07:02:00 Test Item Value Reference Range Comments MAGNESIUM (BEAKER) (test rxfm=492) 1.7 mg/dL 1.6-2.6 BASIC METABOLIC [id number] 07:02:00 Test Item Value Reference Range Comments SODIUM (BEAKER) (test 137 meq/L 136-145 raac=348) POTASSIUM (BEAKER) (test 3.8 meq/L 3.5-5.1 asiw=533) CHLORIDE (BEAKER) (test 103 meq/L 98-107 qykk=944) CO2 (BEAKER) (test 30 meq/L 22-29 bkdd=869) BLOOD UREA NITROGEN 13 mg/dL 7-21 (BEAKER) (test irez=796) CREATININE (BEAKER) (test 0.79 mg/dL 0.57-1.25 rzey=346) GLUCOSE RANDOM (BEAKER) 101 mg/dL 70-105 (test cnpp=705) CALCIUM (BEAKER) (test 8.5 mg/dL 8.4-10.2 nyjs=771) EGFR (BEAKER) (test 106 mL/min/1.73 sq m ESTIMATED GFR IS NOT yekw=9883) ACCURATE CREATININE CLEARANCE IN PREDICTING GLOMERULAR FILTRATION RATE. ESTIMATED GFR IS NOT APPLICABLE FOR DIALYSIS PATIENTS. HEPATIC FUNCTION [id number] 07:02:00 Test Item Value Reference Range Comments TOTAL PROTEIN (BEAKER) (test ekmi=221) 6.7 gm/dL 6.0-8.3 ALBUMIN (BEAKER) (test blax=8232) 3.4 g/dL 3.5-5.0 BILIRUBIN TOTAL (BEAKER) (test ylat=984) 0.8 mg/dL 0.2-1.2 BILIRUBIN DIRECT (BEAKER) (test qrpn=942) 0.3 mg/dL 0.1-0.5 ALKALINE PHOSPHATASE (BEAKER) (test wlwu=843) 51 U/L 40-150 AST (SGOT) (BEAKER) (test asno=607) 75 U/L 5-34 ALT (SGPT) (BEAKER) (test qbjx=017) 26 U/L 6-55 PROTHROMBIN [id number] 06:44:00 Test Item Value Reference Range Comments PROTIME (EULA) (test efvx=070) 15.3 seconds 11.9-14.2 INR (EULA) (test wzyl=216) 1.3 <=5.9 Effective 02/19/2019: PT Reference Range ChangeNew: 11.9-14.2 Previous: 11.7- 14.7RECOMMENDED COUMADIN/WARFARIN INR THERAPY RANGESSTANDARD DOSE: 2.0-3.0 Includes: PROPHYLAXIS for venous thrombosis, systemic embolization; TREATMENT for venous thrombosis and/or pulmonary embolus.HIGH RISK: Target INR is2.5-3.5 for patients wiht mechanical heart valves.U/S, ABDOMINAL, [id number] 22: 37:00Reason for exam:->assess for portal vein thrombus, patency of hepatic vasculatureFINAL REPORT History: Assess for portal vein thrombus, patency of hepatic vasculature Abdominal ultrasound dated 07/02/2019 Comparison: 04/22/2019 Comment: Real-time transabdominal ultrasound of the abdomen was performed. Liver: 16.5 cm , upper limits of normal. Heterogeneous parenchymal echogenicity with subtle nodular contour suggesting underlying hepatic parenchymal disease. No focal lesions. Gallbladder: Cholelithiasis. No gallbladder wall thickening. No perocholecystic fluid.. No sonographic Meier's sign. The transverse diameter of the gallbladder lumen is 2.8 cm. Biliary tree: No intrahepatic ductal dilatation. CBD: Not visualized. Spleen: Enlarged, measuring 16.8 cmin maximum dimension. Pancreas: Unremarkable. Right kidney : 10.2 x 5.6 x 5.8 cm. Normal echogenicity.Left kidney: 10.4 x 5.7 x 4.4 cm. Normal echogenicity. No ascites is present in the abdomen. Left pleural effusion. Real-time Banerjee scale, color and spectral doppler ultrasound of the abdomen was performed to evaluate visceral blood flow. Main portal vein measures 1.0 cm in diameter. There is hepatopetal flow in the main portal vein with velocity 18.5 cm/sec. The right and left intrahepatic portal veins are patent with hepatopetal flow. The splenic vein is patent with appropriate flow. Proper hepatic artery, right hepatic artery, and left hepatic artery are patent with resistive indices 0.6, 0.7, and 0.6 respectively. IVC, Hepatic venous confluence, right HV, middle HV and left HV are patent with appropriate flow. The visualized abdominal aorta is normal in caliber. Impression: Heterogeneous hepatic parenchyma with subtle nodular hepatic contour suggesting underlying cirrhosis. Normal abdominal Doppler evaluation without evidence of portal venous thrombosis. Splenomegaly. Cholelithiasis. Signed: Iftikhar Miller MDReport Verified Date/Time: 07/12/2019 22:37:47 POCT-GLUCOSE [id number] 21:09:00 Test Item Value Reference Range Comments POC-GLUCOSE METER (BEAKER) 110 mg/dL 70-110 TESTED AT [address] (test tdyy=6463) [place] [id number] POCT-GLUCOSE [id number] 17:13:00 Test Item Value Reference Range Comments POC-GLUCOSE METER (BEAKER) 133 mg/dL 70-110 TESTED AT [address] (test fael=6241) [place] [id number] POCT-GLUCOSE [id number] 07:21:00 Test Item Value Reference Range Comments POC-GLUCOSE METER (BEAKER) 98 mg/dL 70-110 TESTED AT [address] (test tlmw=3736) [facility] [address] BASIC METABOLIC [id number] 06:52:00 Test Item Value Reference Range Comments SODIUM (BEAKER) (test 133 meq/L 136-145 pfji=052) POTASSIUM (BEAKER) (test 4.4 meq/L 3.5-5.1 xhug=134) CHLORIDE (BEAKER) (test 99 meq/L 98-107 foaf=203) CO2 (BEAKER) (test 28 meq/L 22-29 zvhl=705) BLOOD UREA NITROGEN 20 mg/dL 7-21 (BEAKER) (test idvi=736) CREATININE (BEAKER) (test 0.81 mg/dL 0.57-1.25 ixrv=923) GLUCOSE RANDOM (BEAKER) 102 mg/dL 70-105 (test gkhf=938) CALCIUM (BEAKER) (test 8.3 mg/dL 8.4-10.2 ujux=488) EGFR (BEAKER) (test 103 mL/min/1.73 sq m ESTIMATED GFR IS NOT byem=1800) ACCURATE CREATININE CLEARANCE IN PREDICTING GLOMERULAR FILTRATION RATE. ESTIMATED GFR IS NOT APPLICABLE FOR DIALYSIS PATIENTS. HEPATIC FUNCTION [id number] 06:52:00 Test Item Value Reference Range Comments TOTAL PROTEIN (BEAKER) (test lfah=666) 7.0 gm/dL 6.0-8.3 ALBUMIN (BEAKER) (test foju=3288) 3.5 g/dL 3.5-5.0 BILIRUBIN TOTAL (BEAKER) (test mnqr=336) 0.7 mg/dL 0.2-1.2 BILIRUBIN DIRECT (BEAKER) (test pjuu=058) 0.3 mg/dL 0.1-0.5 ALKALINE PHOSPHATASE (BEAKER) (test hkns=431) 49 U/L 40-150 AST (SGOT) (BEAKER) (test bofd=193) 61 U/L 5-34 ALT (SGPT) (BEAKER) (test vgpf=978) 21 U/L 6-55 [id number] 06:51:00 Test Item Value Reference Range Comments PHOSPHORUS (BEAKER) (test agcv=943) 2.7 mg/dL 2.3-4.7 [id number] 06:51:00 Test Item Value Reference Range Comments MAGNESIUM (BEAKER) (test duak=756) 1.7 mg/dL 1.6-2.6 PROTHROMBIN [id number] 06:40:00 Test Item Value Reference Range Comments PROTIME (BEAKER) (test ebtr=893) 15.7 seconds 11.9-14.2 INR (BEAKER) (test hrse=117) 1.3 <=5.9 Effective 02/19/2019: PT Reference Range ChangeNew: 11.9-14.2 Previous: 11.7- 14.7RECOMMENDED COUMADIN/WARFARIN INR THERAPY RANGESSTANDARD DOSE: 2.0-3.0 Includes: PROPHYLAXIS for venous thrombosis, systemic embolization; TREATMENT for venous thrombosis and/or pulmonary embolus.HIGH RISK: Target INR is2.5-3.5 for patients wiht mechanical heart valves.CBC W/PLT COUNT & AUTO [id number] 06:37:00 Test Item Value Reference Range Comments WHITE BLOOD CELL COUNT 6.7 K/ L 3.5-10.5 (BEAKER) (test bybb=167) RED BLOOD CELL COUNT (BEAKER) 2.69 M/ L 4.63-6.08 (test bwjk=503) HEMOGLOBIN (BEAKER) (test 6.3 GM/DL 13.7-17.5 hfpv=356) HEMATOCRIT (BEAKER) (test 21.5 % 40.1-51.0 ndjy=701) MEAN CORPUSCULAR VOLUME 79.9 fL 79.0-92.2 (BEAKER) (test jpvi=081) MEAN CORPUSCULAR HEMOGLOBIN 23.4 pg 25.7-32.2 (BEAKER) (test dnvg=738) MEAN CORPUSCULAR HEMOGLOBIN 29.3 GM/DL 32.3-36.5 CONC (BEAKER) (test lgex=707) RED CELL DISTRIBUTION WIDTH 19.5 % 11.6-14.4 (BEAKER) (test dyjv=128) PLATELET COUNT (BEAKER) (test 96 K/CU MM 150-450 fony=170) MEAN PLATELET VOLUME (BEAKER) Unable to report due to (test rtuq=583) abnormal Platelet population distribution. NUCLEATED RED BLOOD CELLS 0 /100 WBC 0-0 (BEAKER) (test ajgn=237) NEUTROPHILS RELATIVE PERCENT 46 % (BEAKER) (test yeoh=373) LYMPHOCYTES RELATIVE PERCENT 41 % (BEAKER) (test sbzy=837) MONOCYTES RELATIVE PERCENT 8 % (BEAKER) (test ijmq=117) EOSINOPHILS RELATIVE PERCENT 5 % (BEAKER) (test pvgq=561) BASOPHILS RELATIVE PERCENT 1 % (BEAKER) (test quqi=517) NEUTROPHILS ABSOLUTE COUNT 3.06 K/ L 1.78-5.38 (BEAKER) (test ifwv=929) LYMPHOCYTES ABSOLUTE COUNT 2.73 K/ L 1.32-3.57 (BEAKER) (test hbgb=441) MONOCYTES ABSOLUTE COUNT 0.50 K/ L 0.30-0.82 (BEAKER) (test hdhq=105) EOSINOPHILS ABSOLUTE COUNT 0.30 K/ L 0.04-0.54 (BEAKER) (test qcxj=974) BASOPHILS ABSOLUTE COUNT 0.05 K/ L 0.01-0.08 (BEAKER) (test gusi=510) IMMATURE GRANULOCYTES-RELATIVE 0 % 0-1 PERCENT (BEAKER) (test oquy=0982) LACTIC ACID, [id number] 05:59:00 Test Item Value Reference Range Comments LACTATE BLOOD VENOUS (2) (BEAKER) (test 0.9 mmol/L 0.5-2.2 vgtc=1371) [id number] 05:55:00 Test Item Value Reference Range Comments AMMONIA (BEAKER) (test jisw=263) 56 mol/L 18-72 POCT-GLUCOSE [id number] 23:52:00 Test Item Value Reference Range Comments POC-GLUCOSE METER (BEAKER) 109 mg/dL 70-[address] [facility] [address] [facility] (test shju=9972) [facility] [address] [id number] 22:31:00 Test Item Value Reference Range Comments MAGNESIUM (BEAKER) (test alnu=397) 1.7 mg/dL 1.6-2.6 COMPREHENSIVE METABOLIC [id number] 22:31:00 Test Item Value Reference Range Comments TOTAL PROTEIN (BEAKER) 8.2 gm/dL 6.0-8.3 (test oxsz=838) ALBUMIN (BEAKER) (test 3.9 g/dL 3.5-5.0 xgnz=7506) ALKALINE PHOSPHATASE 58 U/L 40-150 (BEAKER) (test ulxr=893) BILIRUBIN TOTAL (BEAKER) 0.8 mg/dL 0.2-1.2 (test hkvi=691) SODIUM (BEAKER) (test 133 meq/L 136-145 mrve=368) POTASSIUM (BEAKER) (test 4.6 meq/L 3.5-5.1 aamm=567) CHLORIDE (BEAKER) (test 99 meq/L 98-107 gfyn=999) CO2 (BEAKER) (test 25 meq/L 22-29 txal=297) BLOOD UREA NITROGEN 19 mg/dL 7-21 (BEAKER) (test fwad=251) CREATININE (BEAKER) (test 0.83 mg/dL 0.57-1.25 qznc=188) GLUCOSE RANDOM (BEAKER) 95 mg/dL 70-105 (test badi=236) CALCIUM (BEAKER) (test 9.0 mg/dL 8.4-10.2 ahmd=799) AST (SGOT) (BEAKER) (test 68 U/L 5-34 tljg=222) ALT (SGPT) (BEAKER) (test 26 U/L 6-55 bhbh=240) EGFR (BEAKER) (test 100 mL/min/1.73 sq ESTIMATED GFR IS NOT ihtm=3769) m ACCURATE CREATININE CLEARANCE IN PREDICTING GLOMERULAR FILTRATION RATE. ESTIMATED GFR IS NOT APPLICABLE FOR DIALYSIS PATIENTS. LACTIC ACID, [id number] 22:23:00 Test Item Value Reference Range Comments LACTATE BLOOD VENOUS (2) 1.0 mmol/L 0.5-2.2 Specimen slightly hemolyzed (BEAKER) (test vbzk=5456) [id number] 22:21:00 Test Item Value Reference Range Comments AMMONIA (BEAKER) (test 52 mol/L 18-72 Specimen slightly hemolyzed tiez=440) CBC W/PLT COUNT & AUTO [id number] 22:18:00 Test Item Value Reference Range Comments WHITE BLOOD CELL COUNT 7.0 K/ L 3.5-10.5 (BEAKER) (test kkfa=314) RED BLOOD CELL COUNT (BEAKER) 3.26 M/ L 4.63-6.08 (test ueui=672) HEMOGLOBIN (BEAKER) (test 7.5 GM/DL 13.7-17.5 cwzd=161) HEMATOCRIT (BEAKER) (test 26.0 % 40.1-51.0 vcqi=999) MEAN CORPUSCULAR VOLUME 79.8 fL 79.0-92.2 (BEAKER) (test rkzh=193) MEAN CORPUSCULAR HEMOGLOBIN 23.0 pg 25.7-32.2 (BEAKER) (test thwa=142) MEAN CORPUSCULAR HEMOGLOBIN 28.8 GM/DL 32.3-36.5 CONC (BEAKER) (test ppjd=016) RED CELL DISTRIBUTION WIDTH 19.1 % 11.6-14.4 (BEAKER) (test sbby=476) PLATELET COUNT (BEAKER) (test 115 K/CU MM 150-450 esgf=552) MEAN PLATELET VOLUME (BEAKER) Unable to report due to (test luft=059) abnormal Platelet population distribution. NUCLEATED RED BLOOD CELLS 0 /100 WBC 0-0 (BEAKER) (test hvre=032) NEUTROPHILS RELATIVE PERCENT 43 % (BEAKER) (test jdvh=976) LYMPHOCYTES RELATIVE PERCENT 42 % (BEAKER) (test aucw=535) MONOCYTES RELATIVE PERCENT 10 % (BEAKER) (test bzvo=853) EOSINOPHILS RELATIVE PERCENT 5 % (BEAKER) (test gpno=906) BASOPHILS RELATIVE PERCENT 1 % (BEAKER) (test mkcd=619) NEUTROPHILS ABSOLUTE COUNT 2.99 K/ L 1.78-5.38 (BEAKER) (test ngfg=160) LYMPHOCYTES ABSOLUTE COUNT 2.94 K/ L 1.32-3.57 (BEAKER) (test mylu=280) MONOCYTES ABSOLUTE COUNT 0.67 K/ L 0.30-0.82 (BEAKER) (test nork=022) EOSINOPHILS ABSOLUTE COUNT 0.33 K/ L 0.04-0.54 (BEAKER) (test kkgl=549) BASOPHILS ABSOLUTE COUNT 0.06 K/ L 0.01-0.08 (BEAKER) (test cmak=180) IMMATURE GRANULOCYTES-RELATIVE 0 % 0-1 PERCENT (BEAKER) (test qhol=8492) BLOOD [id number] 08:01:00 Test Item Value Reference Range Comments CULTURE (BEAKER) (test ydwi=5018) No growth in 5 days BLOOD [id number] 08:01:00 Test Item Value Reference Range Comments CULTURE (BEAKER) (test mokm=8317) No growth in 5 days HEPATITIS C PCR, [id number] 13:33:00 Test Item Value Reference Range Comments HCV NUMERIC RESULT (BEAKER) (test svqz=0587) 627621 IU/mL <15 This test uses a Real-Time Polymerase Chain Reaction (RT-PCR) methodology and was performed using EFRA Ampliprep/EFRA TaqMan HCV test kit version 2.0 ( [employer]).Reportable range for this assay is 15 - 100,000, 000 IU per mL (1.18 - 8.00 Log IU/mL).[id number] 02:31:00 Test Item Value Reference Range Comments PHOSPHORUS (BEAKER) (test ffks=661) 3.8 mg/dL 2.3-4.7 [id number] 02:31:00 Test Item Value Reference Range Comments MAGNESIUM (BEAKER) (test nfbo=056) 1.6 mg/dL 1.6-2.6 BASIC METABOLIC [id number] 02:31:00 Test Item Value Reference Range Comments SODIUM (BEAKER) (test 136 meq/L 136-145 juji=589) POTASSIUM (BEAKER) (test 3.9 meq/L 3.5-5.1 tlqt=230) CHLORIDE (BEAKER) (test 98 meq/L 98-107 qegt=660) CO2 (BEAKER) (test 27 meq/L 22-29 nmas=147) BLOOD UREA NITROGEN 7 mg/dL 7-21 (BEAKER) (test qsfc=447) CREATININE (BEAKER) (test 0.82 mg/dL 0.57-1.25 ubmf=361) GLUCOSE RANDOM (BEAKER) 121 mg/dL 70-105 (test mtel=674) CALCIUM (BEAKER) (test 9.1 mg/dL 8.4-10.2 fzpk=092) EGFR (BEAKER) (test 101 mL/min/1.73 sq m ESTIMATED GFR IS NOT cdgf=5250) ACCURATE CREATININE CLEARANCE IN PREDICTING GLOMERULAR FILTRATION RATE. ESTIMATED GFR IS NOT APPLICABLE FOR DIALYSIS PATIENTS. CBC W/PLT COUNT & AUTO [id number] 02:12:00 Test Item Value Reference Range Comments WHITE BLOOD CELL COUNT (BEAKER) (test ydju=025) 6.6 K/ L 3.5-10.5 RED BLOOD CELL COUNT (BEAKER) (test bgxa=720) 3.25 M/ L 4.63-6.08 HEMOGLOBIN (BEAKER) (test mwlc=024) 8.6 GM/DL 13.7-17.5 HEMATOCRIT (BEAKER) (test raci=227) 28.3 % 40.1-51.0 MEAN CORPUSCULAR VOLUME (BEAKER) (test mzjm=716) 87.1 fL 79.0-92.2 MEAN CORPUSCULAR HEMOGLOBIN (BEAKER) (test 26.5 pg 25.7-32.2 nroo=884) MEAN CORPUSCULAR HEMOGLOBIN CONC (BEAKER) (test 30.4 GM/DL 32.3-36.5 lgji=318) RED CELL DISTRIBUTION WIDTH (BEAKER) (test 17.7 % 11.6-14.4 kdtq=771) PLATELET COUNT (BEAKER) (test tzdz=524) 89 K/CU MM 150-450 MEAN PLATELET VOLUME (BEAKER) (test qiid=792) 11.7 fL 9.4-12.4 NUCLEATED RED BLOOD CELLS (BEAKER) (test 0 /100 WBC 0-0 ncpy=789) NEUTROPHILS RELATIVE PERCENT (BEAKER) (test 67 % tdku=955) LYMPHOCYTES RELATIVE PERCENT (BEAKER) (test 21 % egag=604) MONOCYTES RELATIVE PERCENT (BEAKER) (test 6 % mppl=208) EOSINOPHILS RELATIVE PERCENT (BEAKER) (test 4 % ndwa=963) BASOPHILS RELATIVE PERCENT (BEAKER) (test 1 % qeqm=691) NEUTROPHILS ABSOLUTE COUNT (BEAKER) (test 4.46 K/ L 1.78-5.38 qbxr=106) LYMPHOCYTES ABSOLUTE COUNT (BEAKER) (test 1.41 K/ L 1.32-3.57 uwea=567) MONOCYTES ABSOLUTE COUNT (BEAKER) (test qdcw=377) 0.37 K/ L 0.30-0.82 EOSINOPHILS ABSOLUTE COUNT (BEAKER) (test 0.29 K/ L 0.04-0.54 fqoj=012) BASOPHILS ABSOLUTE COUNT (BEAKER) (test uneb=464) 0.06 K/ L 0.01-0.08 IMMATURE GRANULOCYTES-RELATIVE PERCENT (BEAKER) 1 % 0-1 (test gshw=2966) POCT-GLUCOSE [id number] 00:21:00 Test Item Value Reference Range Comments POC-GLUCOSE METER (BEAKER) 151 mg/dL 70-110 TESTED AT [address] (test mzgg=1910) [place] [address] HEMOGLOBIN AND [id number] 18:41:00 Test Item Value Reference Range Comments HEMOGLOBIN (BEAKER) (test eswd=325) 8.2 GM/DL 13.7-17.5 HEMATOCRIT (BEAKER) (test mdcb=293) 27.6 % 40.1-51.0 B-TYPE NATRIURETIC FACTOR (BNP)2019-04-24 13:14:00 Test Item Value Reference Range Comments B-TYPE NATRIURETIC PEPTIDE (BEAKER) (test qhog=783) 79 pg/mL 0-100 HEMOGLOBIN AND [id number] 12:33:00 Test Item Value Reference Range Comments HEMOGLOBIN (BEAKER) (test dime=299) 8.5 GM/DL 13.7-17.5 HEMATOCRIT (BEAKER) (test lfos=188) 28.6 % 40.1-51.0 POCT-GLUCOSE [id number] 11:21:00 Test Item Value Reference Range Comments POC-GLUCOSE METER (BEAKER) 130 mg/dL 70-110 TESTED AT [address] (test eixk=8868) [place] [address] POCT-GLUCOSE [id number] 07:30:00 Test Item Value Reference Range Comments POC-GLUCOSE METER (BEAKER) 112 mg/dL 70-[address] [facility] [address] [facility] (test boja=5357) [facility] [address] [id number] 06:15:00 Test Item Value Reference Range Comments PHOSPHORUS (BEAKER) (test uobk=444) 3.0 mg/dL 2.3-4.7 [id number] 06:15:00 Test Item Value Reference Range Comments MAGNESIUM (BEAKER) (test vndj=525) 1.5 mg/dL 1.6-2.6 BASIC METABOLIC [id number] 06:15:00 Test Item Value Reference Range Comments SODIUM (BEAKER) (test 137 meq/L 136-145 rbmo=858) POTASSIUM (BEAKER) (test 3.7 meq/L 3.5-5.1 vfrr=195) CHLORIDE (BEAKER) (test 98 meq/L 98-107 ccxn=042) CO2 (BEAKER) (test 30 meq/L 22-29 yykc=696) BLOOD UREA NITROGEN 8 mg/dL 7-21 (BEAKER) (test rjtw=612) CREATININE (BEAKER) (test 0.80 mg/dL 0.57-1.25 yndw=456) GLUCOSE RANDOM (BEAKER) 115 mg/dL 70-105 (test mzmk=977) CALCIUM (BEAKER) (test 9.0 mg/dL 8.4-10.2 wgic=779) EGFR (BEAKER) (test 104 mL/min/1.73 sq m ESTIMATED GFR IS NOT mxfd=2283) ACCURATE CREATININE CLEARANCE IN PREDICTING GLOMERULAR FILTRATION RATE. ESTIMATED GFR IS NOT APPLICABLE FOR DIALYSIS PATIENTS. HEMOGLOBIN AND [id number] 05:18:00 Test Item Value Reference Range Comments HEMOGLOBIN (BEAKER) (test upvu=143) 8.1 GM/DL 13.7-17.5 HEMATOCRIT (BEAKER) (test tyry=214) 26.9 % 40.1-51.0 CBC W/PLT COUNT & AUTO [id number] 05:18:00 Test Item Value Reference Range Comments WHITE BLOOD CELL COUNT (BEAKER) (test dcgv=573) 6.3 K/ L 3.5-10.5 RED BLOOD CELL COUNT (BEAKER) (test eiwy=212) 3.09 M/ L 4.63-6.08 HEMOGLOBIN (BEAKER) (test mmyg=276) 8.1 GM/DL 13.7-17.5 HEMATOCRIT (BEAKER) (test afze=718) 26.9 % 40.1-51.0 MEAN CORPUSCULAR VOLUME (BEAKER) (test vcpz=362) 87.1 fL 79.0-92.2 MEAN CORPUSCULAR HEMOGLOBIN (BEAKER) (test 26.2 pg 25.7-32.2 yqob=991) MEAN CORPUSCULAR HEMOGLOBIN CONC (BEAKER) (test 30.1 GM/DL 32.3-36.5 grzj=209) RED CELL DISTRIBUTION WIDTH (BEAKER) (test 17.6 % 11.6-14.4 dtve=436) PLATELET COUNT (BEAKER) (test cjzn=732) 87 K/CU MM 150-450 MEAN PLATELET VOLUME (BEAKER) (test luyn=925) 12.3 fL 9.4-12.4 NUCLEATED RED BLOOD CELLS (BEAKER) (test 0 /100 WBC 0-0 fcfy=902) NEUTROPHILS RELATIVE PERCENT (BEAKER) (test 69 % rast=544) LYMPHOCYTES RELATIVE PERCENT (BEAKER) (test 20 % kybm=679) MONOCYTES RELATIVE PERCENT (BEAKER) (test 7 % wfqw=734) EOSINOPHILS RELATIVE PERCENT (BEAKER) (test 3 % kzug=400) BASOPHILS RELATIVE PERCENT (BEAKER) (test 1 % uger=025) NEUTROPHILS ABSOLUTE COUNT (BEAKER) (test 4.31 K/ L 1.78-5.38 jwcj=905) LYMPHOCYTES ABSOLUTE COUNT (BEAKER) (test 1.23 K/ L 1.32-3.57 msyb=834) MONOCYTES ABSOLUTE COUNT (BEAKER) (test cdzn=322) 0.46 K/ L 0.30-0.82 EOSINOPHILS ABSOLUTE COUNT (BEAKER) (test 0.18 K/ L 0.04-0.54 ksov=145) BASOPHILS ABSOLUTE COUNT (BEAKER) (test lius=188) 0.05 K/ L 0.01-0.08 IMMATURE GRANULOCYTES-RELATIVE PERCENT (BEAKER) 1 % 0-1 (test nobl=9180) HEMOGLOBIN AND [id number] 23:49:00 Test Item Value Reference Range Comments HEMOGLOBIN (BEAKER) (test eqvo=228) 7.9 GM/DL 13.7-17.5 HEMATOCRIT (BEAKER) (test jvtc=505) 26.0 % 40.1-51.0 POCT-GLUCOSE [id number] 23:08:00 Test Item Value Reference Range Comments POC-GLUCOSE METER (BEAKER) 117 mg/dL 70-110 TESTED AT [address] (test scxa=3480) [place] [id number] POCT-GLUCOSE [id number] 17:31:00 Test Item Value Reference Range Comments POC-GLUCOSE METER (BEAKER) 110 mg/dL 70-110 TESTED AT [address] (test hjdo=4857) [facility] [address] [id number] 17:04:00 Test Item Value Reference Range Comments PROTIME (BEAKER) (test tdcu=709) 15.8 seconds 11.9-14.2 INR (BEAKER) (test ecqo=136) 1.3 <=5.9 PARTIAL THROMBOPLASTIN TIME (BEAKER) (test 30.5 seconds 22.5-36.0 krkw=218) Effective 02/19/2019: PT Reference Range ChangeNew: 11.9-14.2 Previous: 11.7- 14.7RECOMMENDED COUMADIN/WARFARIN INR THERAPY RANGESSTANDARD DOSE: 2.0-3.0 Includes: PROPHYLAXIS for venous thrombosis, systemic embolization; TREATMENT for venous thrombosis and/or pulmonary embolus.HIGH RISK: Target INR is2.5-3.5 for patients wiht mechanical heart valves.[id number] 17:04:00 Test Item Value Reference Range Comments FIBRINOGEN LEVEL (BEAKER) (test mrjn=926) 204 mg/dl 225-434 HEMOGLOBIN AND [id number] 16:57:00 Test Item Value Reference Range Comments HEMOGLOBIN (BEAKER) (test iagf=262) 8.1 GM/DL 13.7-17.5 HEMATOCRIT (BEAKER) (test sdmr=830) 26.4 % 40.1-51.0 POCT-GLUCOSE [id number] 12:00:00 Test Item Value Reference Range Comments POC-GLUCOSE METER (BEAKER) 163 mg/dL 70-110 TESTED AT [address] (test ggot=1550) [place] [id number] HEPATITIS C [id number] 09:24:00 Test Item Value Reference Range Comments HEPATITIS C ANTIBODY (BEAKER) (test czrn=899) Reactive Nonreactive RAD, CHEST, 1 VIEW, NON [id number] 08:47:00Reason for exam:-> hypoxemiaShould this be performed at the bedside?->YesFINAL REPORT RAD, CHEST, 1 VIEW, NON DEPT CLINICAL INDICATION: hypoxemia COMPARISON: None TECHNIQUE: AP view of the chest FINDINGS: Lung volumes are low , with bibasilar atelectasis. No focal consolidation, pleural effusion, or pneumothorax. Cardiomediastinal silhouette, nena, and pulmonary vasculature are within normal limits. IMPRESSION:Low lung volumes with bibasilar atelectasis.Otherwise no acute cardiopulmonary abnormality. Signed: Estee Morrell Verified Date/Time: 04/23/2019 08:47:47 Reading Location: [facility] Radiology Reading Room Electronically signedby: ESTEE MORRELL MD on 04/23/2019 08:47 AMHEPATITIS B SURFACE [id number] 08:01: 00 Test Item Value Reference Range Comments HEPATITIS B SURFACE ANTIBODY (BEAKER) (test < mIU/mL <8.0 dohk=335) HEPATITIS A ANTIBODY, [id number] 08:01:00 Test Item Value Reference Range Comments HEPATITIS A IGG ANTIBODY (BEAKER) (test erwx=3027) Reactive Nonreactive ALPHA FETOPROTEIN (AFP), TUMOR [id number] 07:56:00 Test Item Value Reference Range Comments ALPHA-FETOPROTEIN (BEAKER) (test ryht=1764) 5.7 ng/mL <10.0 HEPATITIS A ANTIBODY, [id number] 07:56:00 Test Item Value Reference Range Comments HEPATITIS A IGM ANTIBODY (BEAKER) (test Nonreactive Nonreactive vgut=494) HEPATITIS B CORE ANTIBODY, [id number] 07:56:00 Test Item Value Reference Range Comments HEPATITIS B CORE TOTAL ANTIBODY (BEAKER) (test Nonreactive Nonreactive bcdv=254) HEPATITIS B SURFACE [id number] 07:52:00 Test Item Value Reference Range Comments HEPATITIS B SURFACE ANTIGEN (2) (BEAKER) (test Nonreactive Nonreactive ietg=8003) [id number] 06:11:00 Test Item Value Reference Range Comments PHOSPHORUS (BEAKER) (test xlpx=771) 1.3 mg/dL 2.3-4.7 [id number] 06:09:00 Test Item Value Reference Range Comments MAGNESIUM (BEAKER) (test kcsf=891) 2.0 mg/dL 1.6-2.6 BASIC METABOLIC [id number] 06:09:00 Test Item Value Reference Range Comments SODIUM (BEAKER) (test 132 meq/L 136-145 sykc=809) POTASSIUM (BEAKER) (test 4.2 meq/L 3.5-5.1 gnur=487) CHLORIDE (BEAKER) (test 98 meq/L 98-107 zdda=335) CO2 (BEAKER) (test 29 meq/L 22-29 iufa=416) BLOOD UREA NITROGEN 17 mg/dL 7-21 (BEAKER) (test fuwh=196) CREATININE (BEAKER) (test 0.85 mg/dL 0.57-1.25 yzfa=926) GLUCOSE RANDOM (BEAKER) 112 mg/dL 70-105 (test buhd=848) CALCIUM (BEAKER) (test 8.5 mg/dL 8.4-10.2 oqgm=685) EGFR (BEAKER) (test 97 mL/min/1.73 sq m ESTIMATED GFR IS NOT hymo=5514) ACCURATE CREATININE CLEARANCE IN PREDICTING GLOMERULAR FILTRATION RATE. ESTIMATED GFR IS NOT APPLICABLE FOR DIALYSIS PATIENTS. POCT-GLUCOSE [id number] 06:03:00 Test Item Value Reference Range Comments POC-GLUCOSE METER (BEAKER) 102 mg/dL 70-110 TESTED AT [address] (test kort=5633) [facility] [address] HEMOGLOBIN AND [id number] 05:21:00 Test Item Value Reference Range Comments HEMOGLOBIN (BEAKER) (test maiv=805) 6.8 GM/DL 13.7-17.5 HEMATOCRIT (BEAKER) (test tjtb=986) 22.8 % 40.1-51.0 CBC W/PLT COUNT & AUTO [id number] 05:21:00 Test Item Value Reference Range Comments WHITE BLOOD CELL COUNT (BEAKER) (test ubnb=791) 9.5 K/ L 3.5-10.5 RED BLOOD CELL COUNT (BEAKER) (test nrev=204) 2.64 M/ L 4.63-6.08 HEMOGLOBIN (BEAKER) (test wzxb=003) 6.8 GM/DL 13.7-17.5 HEMATOCRIT (BEAKER) (test pcnu=412) 22.8 % 40.1-51.0 MEAN CORPUSCULAR VOLUME (BEAKER) (test jwar=063) 86.4 fL 79.0-92.2 MEAN CORPUSCULAR HEMOGLOBIN (BEAKER) (test 25.8 pg 25.7-32.2 mqte=458) MEAN CORPUSCULAR HEMOGLOBIN CONC (BEAKER) (test 29.8 GM/DL 32.3-36.5 fewc=843) RED CELL DISTRIBUTION WIDTH (BEAKER) (test 18.3 % 11.6-14.4 cflv=343) PLATELET COUNT (BEAKER) (test wvrg=862) 78 K/CU MM 150-450 MEAN PLATELET VOLUME (BEAKER) (test iwtw=458) 11.2 fL 9.4-12.4 NUCLEATED RED BLOOD CELLS (BEAKER) (test 0 /100 WBC 0-0 kodi=556) NEUTROPHILS RELATIVE PERCENT (BEAKER) (test 79 % lgrj=965) LYMPHOCYTES RELATIVE PERCENT (BEAKER) (test 15 % apsz=513) MONOCYTES RELATIVE PERCENT (BEAKER) (test 4 % awlh=283) EOSINOPHILS RELATIVE PERCENT (BEAKER) (test 0 % ypvn=792) BASOPHILS RELATIVE PERCENT (BEAKER) (test 0 % nvpg=725) NEUTROPHILS ABSOLUTE COUNT (BEAKER) (test 7.45 K/ L 1.78-5.38 auky=052) LYMPHOCYTES ABSOLUTE COUNT (BEAKER) (test 1.46 K/ L 1.32-3.57 syyw=221) MONOCYTES ABSOLUTE COUNT (BEAKER) (test oklp=804) 0.42 K/ L 0.30-0.82 EOSINOPHILS ABSOLUTE COUNT (BEAKER) (test 0.02 K/ L 0.04-0.54 xort=172) BASOPHILS ABSOLUTE COUNT (BEAKER) (test qtch=829) 0.02 K/ L 0.01-0.08 IMMATURE GRANULOCYTES-RELATIVE PERCENT (BEAKER) 1 % 0-1 (test frtm=3286) HEMOGLOBIN AND [id number] 00:06:00 Test Item Value Reference Range Comments HEMOGLOBIN (BEAKER) (test ofrw=495) 7.4 GM/DL 13.7-17.5 HEMATOCRIT (BEAKER) (test viwv=370) 24.6 % 40.1-51.0 POCT-GLUCOSE [id number] 22:31:00 Test Item Value Reference Range Comments POC-GLUCOSE METER (BEAKER) 151 mg/dL 70-[address] [facility] [address] [facility] (test bckz=0424) [facility] [address] U/S, ABDOMINAL, WITH [id number] 21:18:00Reason for exam:-> cirrhosisShould this be performed at the bedside?->YesFINAL REPORT INDICATION: cirrhosis COMPARISON: None TECHNIQUE: Real-time banerjee- scale transabdominal and color and spectral Doppler ultrasound. FINDINGS:Liver: Size: 15.9cm. Echogenicity: Hyperechoic. Masses/lesions: None. Surface Nodularity: Present. Intrahepatic bile ducts: Normal. Common bile duct: 0.4cm. MPV: 1.2cm. Gallbladder: Stones: Multiple measuring up to 9 mm. Sludge: None. Wall thickness: 0.3 cm. Pericholecystic fluid:None. Sonographic Meier's sign: No sonographic Meier's sign. Pancreas: Head and uncinate process: Unremarkable. Body and tail: Not well-seen. Spleen: Size: 14.8cm. Echogenicity:Unremarkable. Right kidney : Size: 10.8 cm. Parenchyma: Normal echogenicity. No cysts. Punctate echogenic shadowing reflectors including upper pole 9 mm and interpolar 5 mm calculi. Hydronephrosis: None. Left kidney: Size: 1.9 cm. Parenchyma : Normal echogenicity. No cysts. Punctateechogenic shadowing factors including lower pole 7 mm and upper pole nine mm calculi. Hydronephrosis: None. Ascites: None. Regional Vasculature: The visible abdominal aorta, IVC and hepatic veins are patent. Color and Spectral imaging:MPV: Diameter: 1.2 cm Flow: Hepatopedal. Velocity: 30 cm/sec Filling defects: NoneLeft and right portal veins: Patent. Flow: Antegrade Filling defects: None. Hepatic arteries: Patent RI proper hepatic: 0.6 RI right hepatic: 0.6 RI left hepatic: 0.6 IVC, Hepatic venous confluence, right HV, middle HV and left HV are patent. Additional findings: None. IMPRESSION: Echogenic liver compatible with hepatic steatosis and/or hepatocellular disease. Nodular liver surface suspicious for cirrhosis but clinical correlation is recommended. Cholelithiasis without sonographic evidence of acute cholecystitis. Bilateral nonobstructing nephrolithiasis. Hepatic arteries and portal vein are within normal limits. Mild splenomegaly. Signed: Ranjit Friedman MDReport Verified Date/Time: 04/22/2019 21:18:54 HEMOGLOBIN AND [id number] 18:36:00 Test Item Value Reference Range Comments HEMOGLOBIN (BEAKER) (test exyn=852) 7.6 GM/DL 13.7-17.5 HEMATOCRIT (BEAKER) (test unhf=305) 25.2 % 40.1-51.0 POCT-GLUCOSE [id number] 18:24:00 Test Item Value Reference Range Comments POC-GLUCOSE METER (BEAKER) 141 mg/dL 70-110 TESTED AT [address] (test ygtc=3768) [place] [address] HEMOGLOBIN [id number] 14:28:00 Test Item Value Reference Range Comments HEMOGLOBIN A1C (BEAKER) (test whin=615) 5.6 % 4.3-6.1 HEMOGLOBIN AND [id number] 13:56:00 Test Item Value Reference Range Comments HEMOGLOBIN (BEAKER) (test pnla=067) 7.7 GM/DL 13.7-17.5 HEMATOCRIT (BEAKER) (test ahfv=227) 26.0 % 40.1-51.0 POCT-GLUCOSE [id number] 12:53:00 Test Item Value Reference Range Comments POC-GLUCOSE METER (BEAKER) 146 mg/dL 70-110 TESTED AT [address] (test fgyj=7864) [place] [id number] CALCIUM, [id number] 10:54:00 Test Item Value Reference Range Comments CALCIUM IONIZED (BEAKER) (test ngpr=598) 1.16 mmol/L 1.12-1.27 PH, BLOOD (BEAKER) (test egpu=2741) 7.30 POCT-GLUCOSE [id number] 08:24:00 Test Item Value Reference Range Comments POC-GLUCOSE METER (BEAKER) 172 mg/dL 70-[address] [facility] [address] (test ulpt=8127) [facility] [address] CBC W/PLT COUNT & AUTO [id number] 05:48:00 Test Item Value Reference Range Comments WHITE BLOOD CELL COUNT (BEAKER) (test zbgq=697) 12.6 K/ L 3.5-10.5 RED BLOOD CELL COUNT (BEAKER) (test oxur=194) 3.07 M/ L 4.63-6.08 HEMOGLOBIN (BEAKER) (test izcg=451) 7.9 GM/DL 13.7-17.5 HEMATOCRIT (BEAKER) (test mpdb=601) 26.2 % 40.1-51.0 MEAN CORPUSCULAR VOLUME (BEAKER) (test uqwk=321) 86.6 fL 79.0-92.2 MEAN CORPUSCULAR HEMOGLOBIN (BEAKER) (test 26.1 pg 25.7-32.2 ortl=957) MEAN CORPUSCULAR HEMOGLOBIN CONC (BEAKER) (test 30.1 GM/DL 32.3-36.5 zyfs=891) RED CELL DISTRIBUTION WIDTH (BEAKER) (test 17.8 % 11.6-14.4 ajui=182) PLATELET COUNT (BEAKER) (test vnkc=742) 100 K/CU MM 150-450 MEAN PLATELET VOLUME (BEAKER) (test wwcg=311) 13.1 fL 9.4-12.4 NUCLEATED RED BLOOD CELLS (BEAKER) (test 0 /100 WBC 0-0 tuem=928) NEUTROPHILS RELATIVE PERCENT (BEAKER) (test 90 % tsuz=361) LYMPHOCYTES RELATIVE PERCENT (BEAKER) (test 6 % cipn=345) MONOCYTES RELATIVE PERCENT (BEAKER) (test 2 % guey=376) EOSINOPHILS RELATIVE PERCENT (BEAKER) (test 0 % ctyi=860) BASOPHILS RELATIVE PERCENT (BEAKER) (test 0 % vusw=845) NEUTROPHILS ABSOLUTE COUNT (BEAKER) (test 11.23 K/ L 1.78-5.38 pzfl=195) LYMPHOCYTES ABSOLUTE COUNT (BEAKER) (test 0.78 K/ L 1.32-3.57 vpxj=740) MONOCYTES ABSOLUTE COUNT (BEAKER) (test 0.30 K/ L 0.30-0.82 txzl=231) EOSINOPHILS ABSOLUTE COUNT (BEAKER) (test 0.01 K/ L 0.04-0.54 yaet=721) BASOPHILS ABSOLUTE COUNT (BEAKER) (test 0.04 K/ L 0.01-0.08 qkmx=116) IMMATURE GRANULOCYTES-RELATIVE PERCENT (BEAKER) 2 % 0-1 (test mypb=0549) [id number] 05:41:00 Test Item Value Reference Range Comments PHOSPHORUS (BEAKER) (test ndbb=496) 2.7 mg/dL 2.3-4.7 [id number] 05:41:00 Test Item Value Reference Range Comments MAGNESIUM (BEAKER) (test wlqa=133) 1.6 mg/dL 1.6-2.6 BASIC METABOLIC [id number] 05:41:00 Test Item Value Reference Range Comments SODIUM (BEAKER) (test 134 meq/L 136-145 jmjf=076) POTASSIUM (BEAKER) (test 4.7 meq/L 3.5-5.1 rswk=909) CHLORIDE (BEAKER) (test 103 meq/L 98-107 gxpx=008) CO2 (BEAKER) (test 26 meq/L 22-29 lnwp=372) BLOOD UREA NITROGEN 21 mg/dL 7-21 (BEAKER) (test myhv=628) CREATININE (BEAKER) (test 1.07 mg/dL 0.57-1.25 wfbv=754) GLUCOSE RANDOM (BEAKER) 182 mg/dL 70-105 (test ayog=994) CALCIUM (BEAKER) (test 8.2 mg/dL 8.4-10.2 ogxl=719) EGFR (BEAKER) (test 74 mL/min/1.73 sq m ESTIMATED GFR IS NOT raul=1927) ACCURATE CREATININE CLEARANCE IN PREDICTING GLOMERULAR FILTRATION RATE. ESTIMATED GFR IS NOT APPLICABLE FOR DIALYSIS PATIENTS. HEMOGLOBIN AND [id number] 05:21:00 Test Item Value Reference Range Comments HEMOGLOBIN (BEAKER) (test nggb=022) 7.9 GM/DL 13.7-17.5 HEMATOCRIT (BEAKER) (test rinr=470) 26.2 % 40.1-51.0 PROTHROMBIN [id number] 01:04:00 Test Item Value Reference Range Comments PROTIME (BEAKER) (test wvkc=264) 15.9 seconds 11.9-14.2 INR (BEAKER) (test otjf=274) 1.3 <=5.9 Effective 02/19/2019: PT Reference Range ChangeNew: 11.9-14.2 Previous: 11.7- 14.7RECOMMENDED COUMADIN/WARFARIN INR THERAPY RANGESSTANDARD DOSE: 2.0-3.0 Includes: PROPHYLAXIS for venous thrombosis, systemic embolization; TREATMENT for venous thrombosis and/or pulmonary embolus.HIGH RISK: Target INR is2.5-3.5 for patients wiht mechanical heart valves.[id number] 01:04:00 Test Item Value Reference Range Comments PARTIAL THROMBOPLASTIN TIME (BEAKER) (test 29.9 seconds 22.5-36.0 xadw=448) [id number] 00:08:00 Test Item Value Reference Range Comments ETHANOL (BEAKER) (test bngw=797) < mg/dL <=10 COMPREHENSIVE METABOLIC [id number] 00:04:00 Test Item Value Reference Range Comments TOTAL PROTEIN (BEAKER) 7.5 gm/dL 6.0-8.3 (test ewub=355) ALBUMIN (BEAKER) (test 3.7 g/dL 3.5-5.0 cvsw=5281) ALKALINE PHOSPHATASE 107 U/L 40-150 (BEAKER) (test oxhg=672) BILIRUBIN TOTAL (BEAKER) 1.3 mg/dL 0.2-1.2 (test opdb=394) SODIUM (BEAKER) (test 134 meq/L 136-145 ikhp=912) POTASSIUM (BEAKER) (test 4.6 meq/L 3.5-5.1 vpce=936) CHLORIDE (BEAKER) (test 102 meq/L 98-107 txsa=382) CO2 (BEAKER) (test 26 meq/L 22-29 xbqy=909) BLOOD UREA NITROGEN 21 mg/dL 7-21 (BEAKER) (test wzup=107) CREATININE (BEAKER) (test 1.13 mg/dL 0.57-1.25 slbs=255) GLUCOSE RANDOM (BEAKER) 190 mg/dL 70-105 (test thzb=738) CALCIUM (BEAKER) (test 8.3 mg/dL 8.4-10.2 qhob=970) AST (SGOT) (BEAKER) (test 79 U/L 5-34 oloi=726) ALT (SGPT) (BEAKER) (test 28 U/L 6-55 qajt=334) EGFR (BEAKER) (test 70 mL/min/1.73 sq m ESTIMATED GFR IS NOT uqis=1172) ACCURATE CREATININE CLEARANCE IN PREDICTING GLOMERULAR FILTRATION RATE. ESTIMATED GFR IS NOT APPLICABLE FOR DIALYSIS PATIENTS. [id number] 23:55:00 Test Item Value Reference Range Comments AMMONIA (BEAKER) (test qrdz=007) 45 mol/L 18-72 HEMOGLOBIN AND [id number] 23:45:00 Test Item Value Reference Range Comments HEMOGLOBIN (BEAKER) (test miur=114) 8.0 GM/DL 13.7-17.5 HEMATOCRIT (BEAKER) (test trkg=387) 26.9 % 40.1-51.0
[2019-12-16] MEDS ORDERED: NA CHLORIDE 0.9% 1,000 ML ONE (16:09)
[2019-12-16] MEDS ORDERED: ONDANSETRON 4 MG/2 ML VIAL ONE (16:09)
--- NOTE | 2019-12-16 17:00 | RAD REPORT ---
EXAM DESCRIPTION: CT - Stone Protocol - 12/16/2019 4:25 pm CLINICAL HISTORY: Abdominal pain. COMPARISON: None. TECHNIQUE: Computed axial tomography of the abdomen pelvis was obtained without oral or IV contrast. Lack of IV and oral contrast limits evaluation of solid organs, bowel, and vessels. Coronal reformat mary images were obtained and reviewed. All CT scans are performed using dose optimization technique as appropriate and may include automated exposure control or mA/KV adjustment according to patient size. FINDINGS: Small bilateral renal calculi. Mild to moderate left hydronephrosis. Two calculi are prese nt within the distal left ureter. Largest measures 3 millimeters Cirrhotic liver. TIPS in place The spleen measures 17 centimeters. The pancreas and adrenals appear grossly normal Gallstones without gallbladder wall thickening. Normal appendix. No evidence diverticulitis There is no evidence of diverticulitis. The appendix appears normal IMPRESSION: Distal left ureteral calculi resulting in mild to moderate left hydronephrosis
--- NOTE | 2019-12-16 17:02 | RAD REPORT ---
EXAM DESCRIPTION: Rylan Vivar (2 Views)12/16/2019 4:21 pm CLINICAL HISTORY: Cough COMPARISON: 2019 FINDINGS: The lungs appear clear of acute infiltrate. The heart is normal size IMPRESSION: No acute abnormalities displayed
[2019-12-16 17:10] LABS: Absolute Lymphocytes (CBC) 0.7 K/uL (0.7-4.9); Basophils % 0.1 % (0-1.3); Hematocrit 47.6 % (39.6-49.0); Lymphocytes % 3.4 % (15.3-44.8); MPV 9.7 fL (7.6-11.3)
[2019-12-16 17:34] LABS: Potassium 4.1 mmol/L (3.5-5.1)
[2019-12-16 18:01] LABS: Anisocytosis 1+; Blood Morphology Comment NOTED (NOT SEEN); Platelet Estimate DECR
[2019-12-16] MEDS ORDERED: CEFTRIAXONE/SWI 1gm 1 GM/10 ML SYR ONE (18:01)
[2019-12-16] MEDS ORDERED: TAMSULOSIN 0.4 MG SR CAP ONE (18:01)
[2019-12-16] MEDS ORDERED: Magnesium Sulfate 2gm IVPB 2 G/50 ML BAG IV ONE (18:01)
--- NOTE | 2019-12-16 19:05 | EDPHYS ---
Physician Documentation [facility] Name: Bhargav Toth Age: 44 yrs Sex: Male : 1975 Arrival Date: 12/16/2019 Time: 15:07 Bed 19 Private MD: ED Physician Benson Motley HPI: 12/15 16:11 This 44 yrs old Male presents to ER via Ambulatory with complaints of Cough, kb Fever. 16:11 The patient or guardian reports cough, that is intermittent, described as moderate, kb with no sputum, flu symptoms, low-grade fever. Onset: The symptoms/episode began/occurred 2 day(s) ago. Severity of symptoms: At their worst the symptoms were mild, moderate, in the emergency department the symptoms are unchanged. Modifying factors: The symptoms are alleviated by nothing, the symptoms are aggravated by nothing. Associated signs and symptoms: Pertinent positives: fever, nausea, vomiting, Pertinent negatives: chest pain, diarrhea, ear ache, rhinorrhea, sore throat. The patient has not experienced similar symptoms in the past. The patient has not recently seen a physician. Pt reports cough, congestion and fever for 2 days. Reports nausea, vomiting, flank pain and left groin pain that started yesterday.. Historical: - Allergies: 15:18 No Known Allergies; hb - PMHx: 15:18 Cirrhosis; esophageal varices; GALLSTONES; hb - PSHx: 15:18 variceal banding; hb - Immunization history:: Adult Immunizations up to date. - Social history:: Smoking status: Patient reports the use of cigarette tobacco products, smokes one-half pack cigarettes per day. ROS: 16:19 Constitutional: Negative for fever, chills, and weight loss, ENT: Negative for injury, kb pain, and discharge, Neck: Negative for injury, pain, and swelling, Cardiovascular: Negative for chest pain, palpitations, and edema, Back: Negative for injury and pain, MS/Extremity: Negative for injury and deformity, Skin: Negative for injury, rash, and discoloration, Neuro: Negative for headache, weakness, numbness, tingling, and seizure. 16:19 Respiratory: Positive for cough. 16:19 Abdomen/GI: Positive for nausea and vomiting, Negative for abdominal pain, diarrhea, constipation, abdominal cramps, abdominal distension, anorexia. 16:19 : Positive for flank pain, burning with urination. Exam: 16:19 Constitutional: This is a well developed, well nourished patient who is awake, alert, kb and in no acute distress. Head/Face: Normocephalic, atraumatic. ENT: Nares patent. No nasal discharge, no septal abnormalities noted. Tympanic membranes are normal and external auditory canals are clear. Oropharynx with no redness, swelling, or masses, exudates, or evidence of obstruction, uvula midline. Mucous membranes moist. Neck: Trachea midline, no thyromegaly or masses palpated, and no cervical lymphadenopathy. Supple, full range of motion without nuchal rigidity, or vertebral point tenderness. No Meningismus. Chest/axilla: Normal chest wall appearance and motion. Nontender with no deformity. No lesions are appreciated. Cardiovascular: Regular rate and rhythm with a normal S1 and S2. No gallops, murmurs, or rubs. Normal PMI, no JVD. No pulse deficits. Abdomen/GI: Soft, non-tender, with normal bowel sounds. No distension or tympany. No guarding or rebound. No evidence of tenderness throughout. Skin: Warm, dry with normal turgor. Normal color with no rashes, no lesions, and no evidence of cellulitis. MS/ Extremity: Pulses equal, no cyanosis. Neurovascular intact. Full, normal range of motion. Neuro: Awake and alert, GCS 15, oriented to person, place, time, and situation. Cranial nerves II-XII grossly intact. Motor strength 5/5 in all extremities. Sensory grossly intact. Cerebellar exam normal. Normal gait. 16:19 Respiratory: the patient does not display signs of respiratory distress, Respirations: normal, Breath sounds: rhonchi, that are mild, are heard in the right middle lobe and right lower lobe. 16:19 Back: CVA tenderness, that is mild, is noted on the right. Vital Signs: 15:16 BP 122 / 95; Pulse 102; Resp 18; Temp 99.9; Pulse Ox 95% on R/A; Weight 99.79 kg; hb Height 5 ft. 9 in. (175.26 cm); Pain 8/10; 16:50 BP 114 / 71; Pulse 72; Resp 16; Pulse Ox 92% on R/A; tw2 17:50 BP 104 / 59; Pulse 67; Resp 17; Pulse Ox 92% on R/A; tw2 19:19 BP 110 / 59; Pulse 71; Resp 16; Temp 99; Pulse Ox 96% on R/A; rv 15:16 Body Mass Index 32.49 (99.79 kg, 175.26 cm) hb 16:50 pt states "i am normally at 89 or 90% on room air" tw2 MDM: 15:26 Patient medically screened. kb 16:20 Data reviewed: vital signs, nurses notes. Data interpreted: Pulse oximetry: on room air kb is 95 %. Interpretation: normal. 19:02 Counseling: I had a detailed discussion with the patient and/or guardian regarding: the kb historical points, exam findings, and any diagnostic results supporting the discharge/admit diagnosis, lab results, radiology results, the need for outpatient follow up, a family practitioner, a urologist, to return to the emergency department if symptoms worsen or persist or if there are any questions or concerns that arise at home. 12/15 15:56 Order name: Flu; Complete Time: 17:31 kb 12/15 15:56 Order name: Strep; Complete Time: 17:31 kb 12/15 15:56 Order name: Basic Metabolic Panel; Complete Time: 17:38 kb 12/15 15:56 Order name: CBC with Diff; Complete Time: 18:03 kb 12/15 17:31 Order name: Throat Culture EDCO 12/15 18:02 Order name: Manual Differential; Complete Time: 18:03 EDCO 12/15 15:56 Order name: CT Stone Protocol; Complete Time: 17:07 kb 12/15 15:59 Order name: Chest Pa And Lat (2 Views) XRAY; Complete Time: 17:07 kb 12/15 18:13 Order name: Urine Dipstick--Ancillary (enter results) bd 12/15 15:56 Order name: IV Saline Lock; Complete Time: 17:03 kb 12/15 15:56 Order name: Labs collected and sent; Complete Time: 17:03 kb 12/15 17:15 Order name: Urine Dipstick-Ancillary (obtain specimen); Complete Time: 18:11 kb Administered Medications: 16:50 Drug: NS 0.9% 1000 ml Route: IV; Rate: 1000 ml; Site: left antecubital; tw2 18:36 Follow up: Response: No adverse reaction; IV Status: Completed infusion; IV Intake: tw2 1000ml 16:50 Drug: Zofran (Ondansetron) 4 mg Route: IVP; Site: left antecubital; tw2 17:30 Follow up: Response: No adverse reaction; Nausea is decreased tw2 18:05 Drug: Flomax 0.4 mg Route: PO; tw2 18:36 Follow up: Response: No adverse reaction tw2 18:06 Drug: Rocephin 1 grams Route: IV; Rate: calculated rate; Site: left antecubital; tw2 18:09 Follow up: Response: No adverse reaction; IV Status: Completed infusion tw2 18:09 Drug: Magnesium Sulfate 2 grams Route: IVPB; Infused Over: 1 hrs; Site: left tw2 antecubital; Disposition: 12/16 10:10 Co-signature as Attending Physician, Benson Motley MD. rn Disposition: 12/16/19 19:03 Discharged to Home. Impression: Calculus of kidney and ureter, Urinary tract infection, site not specified, Chronic obstructive pulmonary disease with (acute) exacerbation. - Condition is Stable. - Discharge Instructions: Kidney Stones, [id number], Urinary Tract Infection, Adult, [id number], Dietary Guidelines to Help Prevent Kidney Stones. - Prescriptions for Zofran 4 mg Oral Tablet - take 1 tablet by ORAL route every 6 hours As needed; 20 tablet. Flomax 0.4 mg Oral Capsule, Sust. Release 24 hr - take 1 capsule by ORAL route once daily 1/2 hour following the same meal each day; 10 capsule. Cipro 500 mg Oral Tablet - take 1 tablet by ORAL route every 12 hours for 10 days; 20 tablet. Diclofenac Sodium 75 mg Oral Tablet, Delayed Release (E.C.) - take 1 tablet by ORAL route 2 times per day As needed; 30 tablet. - Medication Reconciliation Form, Thank You Letter, Antibiotic Education, Prescription Opioid Use form. - Follow up: Emergency Department; When: As needed; Reason: Worsening of condition. Follow up: Private Physician; When: 2 - 3 days; Reason: Recheck today's complaints, Continuance of care, Re-evaluation by your physician. Signatures: Dispatcher [email or web address]]Sue Mabry, ELKE DREW-Benson Hollis MD MD rn Baxter, Heather, RN RN hb Wise, Tara, RN RN tw2 Raj Gong, RN RN rv Corrections: (The following items were deleted from the chart) 12/15 19:21 19:03 12/16/2019 19:03 Discharged to Home. Impression: Calculus of kidney and ureter; rv Urinary tract infection, site not specified; Chronic obstructive pulmonary disease with (acute) exacerbation. Condition is Stable. Forms are Medication Reconciliation Form, Thank You Letter, Antibiotic Education, Prescription Opioid Use. Follow up: Emergency Department; When: As needed; Reason: Worsening of condition. Follow up: Private Physician; When: 2 - 3 days; Reason: Recheck today's complaints, Continuance of care, Re-evaluation by your physician. kb
--- NOTE | 2019-12-16 19:05 | ER ---
Nurse's Notes [facility] Name: Bhargav Toth Age: 44 yrs Sex: Male : 1975 Arrival Date: 12/16/2019 Time: 15:07 Bed 19 Private MD: Diagnosis: Calculus of kidney and ureter;Urinary tract infection, site not specified;Chronic obstructive pulmonary disease with (acute) exacerbation Presentation: 12/15 15:16 Chief complaint: N/V, productive cough, SOB, body aches, left low back pain, and fever hb x 2 days. TMAX 102. Coronavirus screen: Patient reports a subjective fever or greater than 100.4F, or cough, or shortness of breath, or difficulty breathing. Surgical mask placed on patient. Patient moved to private room, placed in contact and droplet isolation with eye protection until further assessment. Ebola Screen: No symptoms or risks identified at this time. Initial Sepsis Screen: Does the patient meet any 2 criteria? HR > 90 bpm. Risk Assessment: Do you want to hurt yourself or someone else? Patient reports no desire to harm self or others. 15:16 Method Of Arrival: Ambulatory hb 15:16 Acuity: KIRILL 3 hb 19:20 Initial Sepsis Screen: Does the patient have a suspected source of infection? No. rv Patient's initial sepsis screen is negative. Onset of symptoms is unknown. Historical: - Allergies: 15:18 No Known Allergies; hb - PMHx: 15:18 Cirrhosis; esophageal varices; GALLSTONES; hb - PSHx: 15:18 variceal banding; hb - Immunization history:: Adult Immunizations up to date. - Social history:: Smoking status: Patient reports the use of cigarette tobacco products, smokes one-half pack cigarettes per day. Screenin:55 Abuse screen: Denies threats or abuse. Nutritional screening: No deficits noted. tw2 Tuberculosis screening: No symptoms or risk factors identified. Fall Risk None identified. Assessment: 16:28 Reassessment: pt in xray and CT at this time, not available for vs at this time. tw2 16:45 General: Appears in no apparent distress. Behavior is calm, cooperative, appropriate tw2 for age. Pain: Denies pain. Neuro: Level of Consciousness is awake, alert, obeys commands, Oriented to person, place, time, situation. Cardiovascular: Heart tones S1 S2 Patient's skin is warm and dry. Respiratory: Airway is patent Respiratory effort is even, unlabored, Respiratory pattern is regular, symmetrical, Breath sounds are clear bilaterally. Respiratory: Reports cough that is non-productive, dry. GI: Abdomen is flat, Bowel sounds present X 4 quads. Reports nausea. : No signs and/or symptoms were reported regarding the genitourinary system. EENT: No signs and/or symptoms were reported regarding the EENT system. Derm: No signs and/or symptoms reported regarding the dermatologic system. Musculoskeletal: Range of motion: intact in all extremities. 16:50 Reassessment: Patient appears in no apparent distress at this time. No changes from tw2 previously documented assessment. Patient and/or family updated on plan of care and expected duration. Pain level reassessed. Patient is alert, oriented x 3, equal unlabored respirations, skin warm/dry/pink. 17:55 Reassessment: provider at bedside at this time. tw2 18:05 Reassessment: Patient appears in no apparent distress at this time. No changes from tw2 previously documented assessment. Patient and/or family updated on plan of care and expected duration. Pain level reassessed. Patient is alert, oriented x 3, equal unlabored respirations, skin warm/dry/pink. Vital Signs: 15:16 BP 122 / 95; Pulse 102; Resp 18; Temp 99.9; Pulse Ox 95% on R/A; Weight 99.79 kg; hb Height 5 ft. 9 in. (175.26 cm); Pain 8/10; 16:50 BP 114 / 71; Pulse 72; Resp 16; Pulse Ox 92% on R/A; tw2 17:50 BP 104 / 59; Pulse 67; Resp 17; Pulse Ox 92% on R/A; tw2 19:19 BP 110 / 59; Pulse 71; Resp 16; Temp 99; Pulse Ox 96% on R/A; rv 15:16 Body Mass Index 32.49 (99.79 kg, 175.26 cm) hb 16:50 pt states "i am normally at 89 or 90% on room air" tw2 ED Course: 15:07 Patient arrived in ED. ag5 15:18 Triage completed. hb 15:18 Arm band placed on. hb 15:22 Bed in low position. Call light in reach. tw2 15:26 Sue Ingram FNP-C is [facility]. kb 15:26 Benson Motley MD is Attending Physician. kb 15:44 Antonietta Zamorano, NESHA is Primary Nurse. tw2 16:16 Radiology exam delayed due to in X-ray at this time. nj 16:18 Chest Pa And Lat (2 Views) XRAY In Process Unspecified. EDMS 16:[address] via wheelchair. nj 16:31 CT Stone Protocol In Process Unspecified. EDMS 16:34 CT completed. Patient tolerated procedure well. Patient moved back from CT. nj 16:50 Inserted saline lock: 22 gauge in left antecubital area, using aseptic technique. Blood tw2 collected. 19:20 No provider procedures requiring assistance completed. IV discontinued, intact, rv bleeding controlled, No redness/swelling at site. Pressure dressing applied. Administered Medications: 16:50 Drug: NS 0.9% 1000 ml Route: IV; Rate: 1000 ml; Site: left antecubital; tw2 18:36 Follow up: Response: No adverse reaction; IV Status: Completed infusion; IV Intake: tw2 1000ml 16:50 Drug: Zofran (Ondansetron) 4 mg Route: IVP; Site: left antecubital; tw2 17:30 Follow up: Response: No adverse reaction; Nausea is decreased tw2 18:05 Drug: Flomax 0.4 mg Route: PO; tw2 18:36 Follow up: Response: No adverse reaction tw2 18:06 Drug: Rocephin 1 grams Route: IV; Rate: calculated rate; Site: left antecubital; tw2 18:09 Follow up: Response: No adverse reaction; IV Status: Completed infusion tw2 18:09 Drug: Magnesium Sulfate 2 grams Route: IVPB; Infused Over: 1 hrs; Site: left tw2 antecubital; Intake: 18:36 IV: 1000ml; Total: 1000ml. tw2 Outcome: 19:03 Discharge ordered by . kb 19:20 Discharged to home ambulatory. rv 19:20 Condition: good 19:20 Discharge instructions given to patient, Instructed on discharge instructions, follow up and referral plans. medication usage, Demonstrated understanding of instructions, follow-up care, medications, Prescriptions given X 4. 19:21 Patient left the ED. rv Signatures: Dispatcher [employer] EDME Sue Ingram FNP-C FNP-CkShaneka George, RN RN Antonietta Zamorano RN RN tw2 Mark Rivas Ronaldo RN RN Karan Powers 5 Corrections: (The following items were deleted from the chart) 18:13 18:10 Magnesium Sulfate 2 grams IVPB in left antecubital over 1 hrs tw2 tw2
[2019-12-16 19:49] VITALS: BP 110/59; TEMP 99; O2SAT 96
[2019-12-16 20:43] LABS: Urine Blood 3+ (NEG); Urine Glucose NEGATIVE (NEG); Urine Protein 1+ (NEG)
== END 2019-12-16 19:21 | disposition home or self-care (01) ==
LOC: ER 15:05
DX: J44.1 Chronic obstructive pulmonary disease with (acute) exacerbation (principal); N39.0 Urinary tract infection, site not specified; N20.2 Calculus of kidney with calculus of ureter; F17.210 Nicotine dependence, cigarettes, uncomplicated
CPT/HCPCS: 36415; 71046; 74176; 76377; 80048; 81003; 85025; 87070; 87081; 87804; 96361; 96374; 96375; 99284; J0696; J2405; J3475; J7030

== ENCOUNTER 2020-08-29 14:44 | Emergency (ER) | payer SELFPAY ==
--- OUTSIDE RECORDS SUMMARY | 2020-08-29 14:46 | XMS REPORT | Clinical Summary ---
:1975 Author Organization [facility] Address [address] [place] [address] Care Team Providers Name Role Phone Pcp Primary Care Provider Unavailable Allergies No Known Allergies Medications Medication Sig Dispensed Refills Start Date End Date Status lactulose (CHRONULAC) Take 45 mLs (30 2000 mL 0 07/15/2019 Active 20 gram/30 mL solution g total) by mouth 3 (three) times daily. pantoprazole Take 1 tablet 0 07/15/2019 Ac tive (PROTONIX) 40 MG (40 mg total) tablet by mouth 2 (two) times daily. folic acid (FOLVITE) 1 Take 1 tablet 30 tablet 11 04/26/2019 MG tablet (1 mg total) by mouth daily. multivitamin Take 1 tablet 30 tablet 11 04/26/2019 04/25/2020 E xpired (THERAGRAN) tablet by mouth daily. Active Problems Problem Noted Date Lightheadedness 07/11/2019 Upper GI bleed 07/11/2019 Tobacco abuse 04/25/2019 Hepatitis C 04/25/2019 GI bleed 04/21/2019 Hematemesis with nausea 04/21/2019 Anemia associated with acute blood loss 04/21/2019 Secondary esophageal varices with bleeding 04/21/2019 Alcoholic cirrhosis 04/21/2019 Portal hypertension 04/21/2019 Acute metabolic encephalopathy 04/21/2019 Alcohol abuse 04/21/2019 Family History Medical History Relation Name Comments Liver disease Brother Heart disease Father Relation Name Status Comments Brother Father Social History Tobacco Use Types Packs/Day Years Used Date Current Every Day Smoker 1 Smokeless Tobacco: Never Used Tobacco Cessation: Ready to Quit: No Alcohol Use Drinks/Week oz/Week Comments No quit 4 months ag o Alcohol Habits Answer Date Recorded How often do you have a drink containing alcohol? Never 07/11/2019 How many drinks containing alcohol do you have on a typical day 3 or 4 04/22/2019 when you are drinking? How often do you have six or more drinks on one occasion? We ekly 04/22/2019 Sex Assigned at Date Recorded Not on file Last Filed Vital Signs Not on file Plan of Treatment Health Maintenance Due Date Last Done Comments PNEUMOCOCCAL VACCINE 0-64 YRS (1 of 1 - PPSV23) 1979 LIPID PANEL 01/31/2008 INFLUENZA VACCINE (#1) 2020 Results Not on fileafter 08/29/2019 Advance Directives For more information, please contact: [phone] Code Status Date Activated Date Inactivated Comments Full Code 07/11/2019 8:28 PM 07/15/2019 6:27 PM This code status was determined by: Patient Full Code 04/21/2019 11:18 PM 04/25/2019 3:45 PM This code status was determined by: Patient
--- OUTSIDE RECORDS SUMMARY | 2020-08-29 14:48 | XMS REPORT | Continuity of Care Document ---
:1975 Author Organization [facility] t Address [address] [place] [address] Care Team Providers Name Role Phone Pcp Primary Care Physician Unavailable TAL BAKER Attending Clinician Unavailable NASH CORRALES Attending Clinician Unavailable Admitting Clinician Unavailable NASH CORRALES Admitting Clinician Unavailable Problems Condition Condition Condition Status Onset Resolution Last Treating Co mments Source Name Details Category Date Date Treatment Clinician Date Chronic Chronic Problem Active 2018-09 [place] obstructiv Obstructiv 1-13 da e lung e Lung 00:[facility]: [facility] Disease [facility] [place] Disease Active 2018-[address] [facility]ness 0[facility]18 [facility] 00 [place] Upper GI Upper GI Disease [facility] 00 [place] Tobacco Tobacco Disease Active [facility] abuse abuse 8-02 [facility]: [facility] 00 [place] Hepatitis Hepatitis Disease Active [facility] C 8-02 [facility] - 00:[facility]: Medical 00 [place] GI bleed GI bleed Disease Active [facility] 00:[facility] 00 [place] Hematemesi Hematemesi Disease Active [facility] with s with 04-21 [facility] - nausea nausea 00:00: Medical 00 [place] Anemia Anemia Disease Active [facility] associated associated - [facility] [facility] - with acute with acute 00:00: Me dical blood loss blood loss 00 Ce nter 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 Family History Family Member Diagnosis Comments Start Date Stop Date Source Natural brother Liver disease [facility] Natural father Heart disease [facility] Social History Social Habit Start Date Stop Date Quantity Comments Source Sex Assigned At [facility] Cigarettes smoked 2019-07-16 2019-07-16 [facility] - current (pack per 00:00:00 00:00:00 Medical Center day) - Reported Tobacco use and 2019-07-16 2019-07-16 Never used [facility] - exposure 00:00:00 00:00:00 [facility] Alcohol intake 2019-07-16 2019-07-16 Current [facility] Josse es - 00:00:00 00:00:00 non-drinker of Medical Ce nter alcohol (finding) History [facility] 2019-07-11 2019-07-[address] [facility] - Alcohol Frequency 00:00:00 00:00:00 [facility] Alcohol Comment 2019-07-11 2019-07-11 quit [address] [facility] - 00:00[facility]00 00:00:00 ago Medical Center History [facility] 2019-04-22 2019-04-[address] [facility] - Alcohol Std Drinks 00:00:00 00:00:00 Medica l [place] History [facility] 2019-04-22 2019-04-[address] [facility] - Alcohol Binge 00:00:00 00:00:[address] Smoking Status Start Date Stop Date Source Heavy Tobacco Smoker [place] [facility] Current every day smoker 2019-07-16 00:00:00 [facility] Medications Ordered Filled Start Stop Current Ordering Indication Dosage Frequency Signature Comments Components Source Medication Medication Date Date Medication? Clinician (SIG) Name Name lactulose 2018-09 Yes 30g [id number] Take [address] [facility] [address] (CHRONULAC) 0-22 [id number] mLs (30 g [facility] - 20 gram/30 00:00: 3D total) by Oh dical mL solution 00 mouth 3 Cente r (three) times daily. pantoprazol 2018-09 Yes 40mg Q.5D Take [address] [facility] [facility] e 0-22 tablet (40 [facility] - (PROTONIX) 00:00: mg total) Me dical 40 MG 00 by mouth 2 Center tablet (two) times daily. folic acid 2019- No 1mg QD Take [address] (FOLVITE) 1 04-26 tablet (1 [facility] [facility] - MG tablet 00:00: 23:59 mg total) Me dical 00 :00 by mouth [place] daily. multivitami 2019- No 1{tbl} QD Take [address] n 04-26 tablet by [facility] - (THERAGRAN) 00:00: 23:59 mouth Medi sudhakar tablet 00 :00 daily. [place] ferrous ferrous No 1 TID ferrous [place] sulfate 325 sulfate 325 sulfate da mg (65 mg mg (65 mg 325 mg (65 [facility] iron) iron) mg iron) al tablet Take tablet Take tablet Health 1 tablet 3 1 tablet 3 Take 1 O utreac times a day times a day tablet 3 h by oral by oral times a Progra m route. route. day by oral route. lactulose lactulose No 45mL TID lactulose [place] 20 gram/30 20 gram/30 20 gram/30 da mL oral mL oral mL oral [facility] solution solution solution al Take 45 mL Take 45 mL Take 45 mL Health 3 times a 3 times a 3 times a Outreac day by oral day by oral day by h route. route. oral Program route. levothyroxi levothyroxi No 1 Q1D levothyrox [place] ne 50 mcg ne 50 mcg ine 50 mcg da tablet Take tablet Take tablet [facility] 1 tablet 1 tablet Take 1 al every day every day tablet Hea lth by oral by oral every day Outr eac route. route. by oral h route. Program levothyroxi levothyroxi No 1 Q1D levothyrox [place] ne 75 mcg ne 75 mcg ine 75 mcg da tablet Take tablet Take tablet [facility] 1 tablet 1 tablet Take 1 al every day every day tablet Hea lth by oral by oral every day Outr eac route. route. by oral h route. Program potassium potassium No 1 Q1D potassium [place] chloride ER chloride ER chloride da 20 mEq 20 mEq ER 20 mEq [facility] tablet,exte tablet,exte tablet,ext al nded nded ended Health release release release Outrea c Take 1 Take 1 Take 1 h tablet tablet tablet Program every day every day every day by oral by oral by oral route. route. route. Immunizations Ordered Immunization Filled Immunization Date Status Commen ts Source Name Name Hep B, adult Hep B, adult 2019-10-20 Completed [place] 15:18:36 [facility] Hep B, adult Hep B, adult 2019-08-06 Completed [place] 18:04:47 [facility] Tdap Tdap 2019-08-06 Completed [place] 18:03:32 [facility] Vital Signs Vital Name Observation Time Observation Value Comments Source BP Diastolic 2019-10-20 00:00:00 70 mm[Hg] [facility] Height 2019-10-20 00:00:00 66 [in_i] [place] [facility] BMI (Body Mass 2019-10-20 00:00:00 35.6 kg/m2 [place] director of materials [facility] Index) [facility] BP Systolic 2019-10-20 00:00:00 120 mm[Hg] [place] [facility] Body Weight 2019-10-20 00:00:00 220.7 [lb_av] [place] [facility] BP Diastolic 2019-08-27 00:00:00 72 mm[Hg] [place] [facility] Height 2019-08-27 00:00:00 66 [in_i] [place] [facility] BMI (Body Mass 2019-08-27 00:00:00 36.4 kg/m2 [place] director of materials [facility] BP Systolic 2019-08-27 00:00:00 120 mm[Hg] [place] [facility] Body Weight 2019-08-27 00:00:00 225.8 [lb_av] [place] [facility] BP Diastolic 2019-08-19 00:00:00 70 mm[Hg] [place] [facility] Height 2019-08-19 00:00:00 66 [in_i] [place] [facility] BMI (Body Mass 2019-08-19 00:00:00 35.8 kg/m2 [place] director of materials [facility] BP Systolic 2019-08-19 00:00:00 122 mm[Hg] [place] [facility] Body Weight 2019-08-19 00:00:00 222 [lb_av] [place] [facility] BP Diastolic 2019-08-06 00:00:00 70 mm[Hg] [place] [facility] Height 2019-08-06 00:00:00 66 [in_i] [place] [facility] BMI (Body Mass 2019-08-06 00:00:00 35.1 kg/m2 [place] director of materials [facility] BP Systolic 2019-08-06 00:00:00 110 mm[Hg] [place] [facility] Body Weight 2019-08-06 00:00:00 217.6 [lb_av] [place] [facility] Procedures Procedure Date / Time Performing Clinician Source Performed US, thyroid 2019-08-27 00:00:00 Meera Galicia [facility] Re[place] of [place] [facility] Throat Surgery Procedure [place] [facility] Plan of Care Planned Activity Planned Date Details Comments Source Future Scheduled 2020-05-[address] [facility] - Test 00:00:00 (#1) [code = [facility] INFLUENZA VACCINE (#1)] Diagnostic Test 2019-12-11 TSH + free T4, serum Tracy lali Pending 00:00:00 [code = TSH + free [facility] T4, serum] Outreach Pro[facility] m Diagnostic Test 2019-12-11 CBC w/ auto diff [place] Pending 00:00:00 [code = CBC w/ auto [facility] diff] Outreach Progra m Diagnostic Test 2019-12-11 CMP, serum or plasma Tracy lali Pending 00:00:00 [code = CMP, serum or [facility] plasma] Outreach Progra m Future Scheduled 2008-01-[address] - Test 00:00:00 (procedure) [code = [facility] 20120399] Future Scheduled [address] [facility] - Test 00:00:00 0-64 YRS (1 of 1 - Medical C enter PPSV23) [code = PNEUMOCOCCAL VACCINE 0-64 YRS (1 of 1 - PPSV23)] Encounters Start End Encounter Admission Attending Care Care Encounter Source Date/Time Date/Time Type Type Clinicians Facility Department ID 2019-10-20 2019-10-20 [place] - [id number] [place] 00:00:00 00:00:00 Meera Guzman MD: [facility] [facility]ef[facility] Fer[facility], [address] [address] Alan jain , Ph. 2019-08-27 2019-08-27 [place] - [id number] M [place] 00:00:00 00:00:00 Meera Guzman MD: [address] [facility] [place], [address] [address], [place] [address] Progr am , Ph. 2019-08-19 2019-08-19 Alexander Montoya [facility] [place] - [id number] 6 [place] 00:00:00 00:00:00 Meera Hallman MD: [address], [place], [place] [facility] [phone] Outre ac , Ph. h ([phone]) Program 2019-08-06 2019-08-06 Al[place] [facility] [place] - [id number] M at[place] 00:00:00 00:00:00 Meera Guzman MD: [address] [facility] [place], [address] [address], [place] [phone] Progr am , Ph. Results Test Description Test Time Test Comments Results Result Comments Source Free T4 and TSH panel - Serum or Plasma 2019-10-17 00:00:00 Test Item Value Reference Range Interpretation Comme nts Thyrotropin [Units/volume] in Serum or Plasma by 23.450 uIU/mL 0.45 0-4.500 H Detection limit <= 0.005 mIU/L (test code = 80797-6) Thyroxine (T4) free [Mass/volume] in Serum or Plasma 0.53 NG/dL 0 .82-1.77 L (test code = 3024-7) [facility] Auto Differential panel - Blood 2019-10-17 00:00:00 Test Item Value Reference Range Interpretation Comments Leukocytes [#/volume] in Blood 5.1 x10e3/uL 3.4-10.8 by Automated count (test code = 6690-2) Erythrocytes [#/volume] in 4.56 x10e6/uL 4.14-5.80 Blood by Automated count (test code = 789-8) Hemoglobin [Mass/volume] in 9.4 g/dL 13.0-17.7 L Blood (test code = 718-7) Hematocrit [Volume Fraction] of 32.6 % 37.5-51.0 L Blood by Automated count (test code = 4544-3) Erythrocyte mean corpuscular 72 fL 79-97 L volume [Entitic volume] by Automated count (test code = 787-2) Erythrocyte mean corpuscular 20.6 pg 26.6-33.0 L hemoglobin [Entitic mass] by Automated count (test code = 785-6) Erythrocyte mean corpuscular 28.8 g/dL 31.5-35.7 L hemoglobin concentration [Mass/volume] by Automated count (test code = 786-4) Erythrocyte distribution width 19.2 % 11.6-15.4 H [Ratio] by Automated count (test code = 788-0) Platelets [#/volume] in Blood 152 x10e3/uL 150-450 by Automated count (test code = 777-3) Neutrophils/100 leukocytes in 39 % not estab. Blood by Automated count (test code = 770-8) Lymphocytes/100 leukocytes in 38 % not estab. Blood by Automated count (test code = 736-9) Monocytes/100 leukocytes in 17 % not estab. Blood by Automated count (test code = 5905-5) Eosinophils/100 leukocytes in 5 % not estab. Blood by Automated count (test code = 713-8) Basophils/100 leukocytes in 1 % not estab. Blood by Automated count (test code = 706-2) immature cells (test code = residential glazier immature cells) Neutrophils [#/volume] in Blood 2.0 x10e3/uL 1.4-7.0 by Automated count (test code = 751-8) Lymphocytes [#/volume] in Blood 1.9 x10e3/uL 0.7-3.1 by Automated count (test code = 731-0) Monocytes [#/volume] in Blood 0.9 x10e3/uL 0.1-0.9 by Automated count (test code = 742-7) Eosinophils [#/volume] in Blood 0.3 x10e3/uL 0.0-0.4 by Automated count (test code = 711-2) Basophils [#/volume] in Blood 0.1 x10e3/uL 0.0-0.2 by Automated count (test code = 704-7) immature granulocytes (test 0 % not estab. code = immature granulocytes) Granulocytes Immature 0.0 x10e3/uL 0.0-0.1 [#/volume] in Blood by Automated count (test code = 16882-6) Nucleated erythrocytes/100 residential glazier leukocytes [Ratio] in Blood by Automated count (test code = 72580-0) Morphology [interpretation] in residential glazier Blood Narrative (test code = 25859-3) [facility] 2000 panel - Serum or [id number] 00:00:00 Test Item Value Reference Range Interpretation Comments Glucose [Mass/volume] in 111 mg/dL 65-99 H Serum or Plasma (test code = 2345-7) Urea nitrogen [Mass/volume] 5 mg/dL 6-24 L in Serum or Plasma (test code = 3094-0) Creatinine [Mass/volume] in 0.76 mg/dL 0.76-1.27 Serum or Plasma (test code = 2160-0) eGFR if nonafricn AM (test 109 mL/min/1.73 >59 code = eGFR if nonafricn AM) eGFR if africn AM (test code 126 mL/min/1.73 >59 = eGFR if africn AM) Urea nitrogen/Creatinine 7 9-20 L [Mass Ratio] in Serum or Plasma (test code = 3097-3) Sodium [Moles/volume] in 141 mmol/L 134-144 Serum or Plasma (test code = 2951-2) Potassium [Moles/volume] in 3.4 mmol/L 3.5-5.2 L Serum or Plasma (test code = 2823-3) Chloride [Moles/volume] in 100 mmol/L 96-106 Serum or Plasma (test code = 2075-0) Carbon dioxide, total 24 mmol/L 20-29 [Moles/volume] in Serum or Plasma (test code = 2027-9) Calcium [Mass/volume] in 9.5 mg/dL 8.7-10.2 Serum or Plasma (test code = 54061-2) Protein [Mass/volume] in 7.2 g/dL 6.0-8.5 Serum or Plasma (test code = 2885-2) Albumin [Mass/volume] in 3.3 g/dL 4.0-5.0 L Serum or Plasma (test code = 1751-7) Globulin [Mass/volume] in 3.9 g/dL 1.5-4.5 Serum by calculation (test code = 42377-0) Albumin/Globulin [Mass Ratio] 0.8 1.2-2.2 L in Serum or Plasma (test code = 1759-0) Bilirubin.total [Mass/volume] 1.0 mg/dL 0.0-1.2 in Serum or Plasma (test code = 1975-2) Alkaline phosphatase 98 IU/L 39-117 [Enzymatic activity/volume] in Serum or Plasma (test code = 6768-6) Aspartate aminotransferase 58 IU/L 0-40 H [Enzymatic activity/volume] in Serum or Plasma (test code = 1920-8) Alanine aminotransferase 22 IU/L 0-44 [Enzymatic activity/volume] in Serum or Plasma (test code = 1742-6) [facility] W Auto Differential panel - Blood 2019-08-12 00:00:00 Test Item Value Reference Range Interpretation Comments Leukocytes [#/volume] in Blood 4.9 x10e3/uL 3.4-10.8 by Automated count (test code = 6690-2) Erythrocytes [#/volume] in 4.14 x10e6/uL 4.14-5.80 Blood by Automated count (test code = 789-8) Hemoglobin [Mass/volume] in 9.7 g/dL 13.0-17.7 L Blood (test code = 718-7) Hematocrit [Volume Fraction] of 32.0 % 37.5-51.0 L Blood by Automated count (test code = 4544-3) Erythrocyte mean corpuscular 77 fL 79-97 L volume [Entitic volume] by Automated count (test code = 787-2) Erythrocyte mean corpuscular 23.4 pg 26.6-33.0 L hemoglobin [Entitic mass] by Automated count (test code = 785-6) Erythrocyte mean corpuscular 30.3 g/dL 31.5-35.7 L hemoglobin concentration [Mass/volume] by Automated count (test code = 786-4) Erythrocyte distribution width 20.2 % 12.3-15.4 H [Ratio] by Automated count (test code = 788-0) Platelets [#/volume] in Blood 124 x10e3/uL 150-450 L by Automated count (test code = 777-3) Neutrophils/100 leukocytes in 33 % not estab. Blood by Automated count (test code = 770-8) Lymphocytes/100 leukocytes in 45 % not estab. Blood by Automated count (test code = 736-9) Monocytes/100 leukocytes in 12 % not estab. Blood by Automated count (test code = 5905-5) Eosinophils/100 leukocytes in 7 % not estab. Blood by Automated count (test code = 713-8) Basophils/100 leukocytes in 3 % not estab. Blood by Automated count (test code = 706-2) immature cells (test code = residential glazier immature cells) Neutrophils [#/volume] in Blood 1.6 x10e3/uL 1.4-7.0 by Automated count (test code = 751-8) Lymphocytes [#/volume] in Blood 2.2 x10e3/uL 0.7-3.1 by Automated count (test code = 731-0) Monocytes [#/volume] in Blood 0.6 x10e3/uL 0.1-0.9 by Automated count (test code = 742-7) Eosinophils [#/volume] in Blood 0.3 x10e3/uL 0.0-0.4 by Automated count (test code = 711-2) Basophils [#/volume] in Blood 0.1 x10e3/uL 0.0-0.2 by Automated count (test code = 704-7) immature granulocytes (test 0 % not estab. code = immature granulocytes) Granulocytes Immature 0.0 x10e3/uL 0.0-0.1 [#/volume] in Blood by Automated count (test code = 79747-0) Nucleated erythrocytes/100 residential [place]azier leukocytes [Ratio] in Blood by Automated count (test code = 34354-3) Morphology [interpretation] in residential [facility]ier Blood Narrative (test code = 93952-5) [facility] 2000 panel - Serum or [id number] 00:00:00 Test Item Value Reference Range Interpretation Comments Glucose [Mass/volume] in 89 mg/dL 65-99 Serum or Plasma (test code = 2345-7) Urea nitrogen [Mass/volume] 6 mg/dL 6-24 in Serum or Plasma (test code = 3094-0) Creatinine [Mass/volume] in 0.84 mg/dL 0.76-1.27 Serum or Plasma (test code = 2160-0) eGFR if nonafricn AM (test 105 mL/min/1.73 >59 code = eGFR if nonafricn AM) eGFR if africn AM (test code 121 mL/min/1.73 >59 = eGFR if africn AM) Urea nitrogen/Creatinine 7 9-20 L [Mass Ratio] in Serum or Plasma (test code = 3097-3) Sodium [Moles/volume] in 141 mmol/L 134-144 Serum or Plasma (test code = 2951-2) Potassium [Moles/volume] in 3.3 mmol/L 3.5-5.2 L Serum or Plasma (test code = 2823-3) Chloride [Moles/volume] in 100 mmol/L 96-106 Serum or Plasma (test code = 207-0) Carbon dioxide, total 26 mmol/L 20-29 [Moles/volume] in Serum or Plasma (test code = 2027-9) Calcium [Mass/volume] in 9.9 mg/dL 8.7-10.2 Serum or Plasma (test code = 64823-9) Protein [Mass/volume] in 7.6 g/dL 6.0-8.5 Serum or Plasma (test code = 2885-2) Albumin [Mass/volume] in 3.8 g/dL 3.5-5.5 Serum or Plasma (test code = 1751-7) Globulin [Mass/volume] in 3.8 g/dL 1.5-4.5 Serum by calculation (test code = 56032-0) Albumin/Globulin [Mass Ratio] 1.0 1.2-2.2 L in Serum or Plasma (test code = 1759-0) Bilirubin.total [Mass/volume] 1.3 mg/dL 0.0-1.2 H in Serum or Plasma (test code = 1974-) Alkaline phosphatase 130 IU/L 39-117 H [Enzymatic activity/volume] in Serum or Plasma (test code = 6768-6) Aspartate aminotransferase 137 IU/L 0-40 H [Enzymatic activity/volume] in Serum or Plasma (test code = 1920-8) Alanine aminotransferase 56 IU/L 0-44 H [Enzymatic activity/volume] in Serum or Plasma (test code = 1742-6) [facility] Center[facility] panel, [id number] 00:00:00 Test Item Value Reference Range Interpretation Comments Cholesterol [Mass/volume] in Serum 107 mg/dL 100-199 or Plasma (test code = 2093-3) Triglyceride [Mass/volume] in Serum 83 mg/dL 0-149 or Plasma (test code = 2571-8) Cholesterol in HDL [Mass/volume] in 31 mg/dL >39 L Serum or Plasma (test code = 2085-9) Cholesterol in VLDL [Mass/volume] 17 mg/dL 5-40 in Serum or Plasma by calculation (test code = 92945-1) Cholesterol in LDL [Mass/volume] in 59 mg/dL 0-99 Serum or Plasma by calculation (test code = 96236-3) comment: (test code = comment:) residential glazier Cholesterol.total/Cholesterol.in 3.5 ratio 0.0-5.0 HDL [Mass ratio] in Serum or Plasma (test code = 9830-1) Cholesterol in LDL/Cholesterol in 1.9 ratio 0.0-3.6 HDL [Mass Ratio] in Serum or Plasma (test code = 72113-8) [facility] CenterHemoglobin A1c/Hemoglobin.total in [id number] 00:00:00 Test Item Value Reference Range Interpretation Comments Hemoglobin A1c/Hemoglobin.total in 5.2 % 4.8-5.6 Blood (test code = 4548-4) [facility] Center[facility]+2 Ab+HIV1 p24 Ag [Presence] in Serum by [id number] 00:00:00 Test Item Value Reference Range Interpretation Comments HIV 1+2 Ab+HIV1 p24 Ag non reactive non reactive [Presence] in Serum by Immunoassay (test code = 25165-0) [facility] CenterThyrotropin [Units/volume] in Serum or Plasma by Detection limit <= 0.005 mIU/[id number] 00:00:00 Test Item Value Reference Range Interpretation Comments Thyrotropin [Units/volume] in 116.800 uIU/mL 0.450-4.500 H Serum or Plasma by Detection limit <= 0.005 mIU/L (test code = 11944-8) Thyroxine (T4) free 0.21 NG/dL 0.82-1.77 L [Mass/volume] in Serum or Plasma (test code = 3024-7) [facility] Centercardi[facility] assessment panel, [id number] 00:00:00 Test Item Value Reference Range Interpretation Comments interpretation (test code = note interpretation) pdf image (test code = pdf image) . [facility] Center[facility] W Auto Differential panel - Blood 2019-08-12 00:00:00 Test Item Value Reference Range Interpretation Comments Leukocytes [#/volume] in Blood 4.9 x10e3/uL 3.4-10.8 by Automated count (test code = 6690-2) Erythrocytes [#/volume] in 4.14 x10e6/uL 4.14-5.80 Blood by Automated count (test code = 789-8) Hemoglobin [Mass/volume] in 9.7 g/dL 13.0-17.7 L Blood (test code = 718-7) Hematocrit [Volume Fraction] of 32.0 % 37.5-51.0 L Blood by Automated count (test code = 4544-3) Erythrocyte mean corpuscular 77 fL 79-97 L volume [Entitic volume] by Automated count (test code = 787-2) Erythrocyte mean corpuscular 23.4 pg 26.6-33.0 L hemoglobin [Entitic mass] by Automated count (test code = 785-6) Erythrocyte mean corpuscular 30.3 g/dL 31.5-35.7 L hemoglobin concentration [Mass/volume] by Automated count (test code = 786-4) Erythrocyte distribution width 20.2 % 12.3-15.4 H [Ratio] by Automated count (test code = 788-0) Platelets [#/volume] in Blood 124 x10e3/uL 150-450 L by Automated count (test code = 777-3) Neutrophils/100 leukocytes in 33 % not estab. Blood by Automated count (test code = 770-8) Lymphocytes/100 leukocytes in 45 % not estab. Blood by Automated count (test code = 736-9) Monocytes/100 leukocytes in 12 % not estab. Blood by Automated count (test code = 5905-5) Eosinophils/100 leukocytes in 7 % not estab. Blood by Automated count (test code = 713-8) Basophils/100 leukocytes in 3 % not estab. Blood by Automated count (test code = 706-2) immature cells (test code = residential glazier immature cells) Neutrophils [#/volume] in Blood 1.6 x10e3/uL 1.4-7.0 by Automated count (test code = 751-8) Lymphocytes [#/volume] in Blood 2.2 x10e3/uL 0.7-3.1 by Automated count (test code = 731-0) Monocytes [#/volume] in Blood 0.6 x10e3/uL 0.1-0.9 by Automated count (test code = 742-7) Eosinophils [#/volume] in Blood 0.3 x10e3/uL 0.0-0.4 by Automated count (test code = 711-2) Basophils [#/volume] in Blood 0.1 x10e3/uL 0.0-0.2 by Automated count (test code = 704-7) immature granulocytes (test 0 % not estab. code = immature granulocytes) Granulocytes Immature 0.0 x10e3/uL 0.0-0.1 [#/volume] in Blood by Automated count (test code = 63714-4) Nucleated erythrocytes/100 residential glazier leukocytes [Ratio] in Blood by Automated count (test code = 46911-0) Morphology [interpretation] in residential glazier Blood Narrative (test code = 38714-4) [facility] ProgramComprehensive metabolic 2000 panel - Serum or [id number] 00:00:00 Test Item Value Reference Range Interpretation Comments Glucose [Mass/volume] in 89 mg/dL 65-99 Serum or Plasma (test code = 2345-7) Urea nitrogen [Mass/volume] 6 mg/dL 6-24 in Serum or Plasma (test code = 3094-0) Creatinine [Mass/volume] in 0.84 mg/dL 0.76-1.27 Serum or Plasma (test code = 2160-0) eGFR if nonafricn AM (test 105 mL/min/1.73 >59 code = eGFR if nonafricn AM) eGFR if africn AM (test code 121 mL/min/1.73 >59 = eGFR if africn AM) Urea nitrogen/Creatinine 7 9-20 L [Mass Ratio] in Serum or Plasma (test code = 3097-3) Sodium [Moles/volume] in 141 mmol/L 134-144 Serum or Plasma (test code = 2951-2) Potassium [Moles/volume] in 3.3 mmol/L 3.5-5.2 L Serum or Plasma (test code = 2823-3) Chloride [Moles/volume] in 100 mmol/L 96-106 Serum or Plasma (test code = 5-0) Carbon dioxide, total 26 mmol/L 20-29 [Moles/volume] in Serum or Plasma (test code = 2027-9) Calcium [Mass/volume] in 9.9 mg/dL 8.7-10.2 Serum or Plasma (test code = 10475-7) Protein [Mass/volume] in 7.6 g/dL 6.0-8.5 Serum or Plasma (test code = 2885-2) Albumin [Mass/volume] in 3.8 g/dL 3.5-5.5 Serum or Plasma (test code = 1751-7) Globulin [Mass/volume] in 3.8 g/dL 1.5-4.5 Serum by calculation (test code = 54848-2) Albumin/Globulin [Mass Ratio] 1.0 1.2-2.2 L in Serum or Plasma (test code = 1759-0) Bilirubin.total [Mass/volume] 1.3 mg/dL 0.0-1.2 H in Serum or Plasma (test code = 1974-2) Alkaline phosphatase 130 IU/L 39-117 H [Enzymatic activity/volume] in Serum or Plasma (test code = 6768-6) Aspartate aminotransferase 137 IU/L 0-40 H [Enzymatic activity/volume] in Serum or Plasma (test code = 1920-8) Alanine aminotransferase 56 IU/L 0-44 H [Enzymatic activity/volume] in Serum or Plasma (test code = 1742-6) [facility], [id number] 00:00:00 Test Item Value Reference Range Interpretation Comments Cholesterol [Mass/volume] in Serum 107 mg/dL 100-199 or Plasma (test code = 3-3) Triglyceride [Mass/volume] in Serum 83 mg/dL 0-149 or Plasma (test code = 2571-8) Cholesterol in HDL [Mass/volume] in 31 mg/dL >39 L Serum or Plasma (test code = 2085-9) Cholesterol in VLDL [Mass/volume] 17 mg/dL 5-40 in Serum or Plasma by calculation (test code = 36983-3) Cholesterol in LDL [Mass/volume] in 59 mg/dL 0-99 Serum or Plasma by calculation (test code = 68474-4) comment: (test code = comment:) residential glazier Cholesterol.total/Cholesterol.in 3.5 ratio 0.0-5.0 HDL [Mass ratio] in Serum or Plasma (test code = 9830-1) Cholesterol in LDL/Cholesterol in 1.9 ratio 0.0-3.6 HDL [Mass Ratio] in Serum or Plasma (test code = 68241-6) [facility] CenterHemoglobin A1c/Hemoglobin.total in [id number] 00:00:00 Test Item Value Reference Range Interpretation Comments Hemoglobin A1c/Hemoglobin.total in 5.2 % 4.8-5.6 Blood (test code = 4548-4) [facility] CenterHIV [facility]+2 Ab+HIV1 p24 Ag [Presence] in Serum by [id number] 00:00:00 Test Item Value Reference Range Interpretation Comments HIV 1+2 Ab+HIV1 p24 Ag non reactive non reactive [Presence] in Serum by Immunoassay (test code = 66807-8) [facility] CenterThyrotropin [Units/volume] in Serum or Plasma by Detection limit <= 0.005 mIU/[id number] 00:00:00 Test Item Value Reference Range Interpretation Comments Thyrotropin [Units/volume] in 116.800 uIU/mL 0.450-4.500 H Serum or Plasma by Detection limit <= 0.005 mIU/L (test code = 66937-5) Thyroxine (T4) free 0.21 NG/dL 0.82-1.77 L [Mass/volume] in Serum or Plasma (test code = 3024-7) [facility]ercardi[facility] assessment panel, [id number] 00:00:00 Test Item Value Reference Range Interpretation Comments interpretation (test code = note interpretation) pdf image (test code = pdf image) . [facility] CenterCOMPREHENSIVE METABOLIC PANEL 2019-07-15 04:44:00 Test Item Value Reference Range Interpretation Comments TOTAL PROTEIN 7.3 gm/dL 6.0-8.3 (BEAKER) (test code = 770) ALBUMIN (BEAKER) 3.6 g/dL 3.5-5.0 (test code = 1145) ALKALINE PHOSPHATASE 61 U/L 40-150 (BEAKER) (test code = 346) BILIRUBIN TOTAL 1.1 mg/dL 0.2-1.2 (BEAKER) (test code = 377) SODIUM (BEAKER) (test 138 meq/L 136-145 code = 381) POTASSIUM (BEAKER) 4.0 meq/L 3.5-5.1 (test code = 379) CHLORIDE (BEAKER) 102 meq/L 98-107 (test code = 382) CO2 (BEAKER) (test 30 meq/L 22-29 H code = 355) BLOOD UREA NITROGEN 6 mg/dL 7-21 L (BEAKER) (test code = 354) CREATININE (BEAKER) 0.88 mg/dL 0.57-1.25 (test code = 358) GLUCOSE RANDOM 132 mg/dL 70-105 H (BEAKER) (test code = 652) CALCIUM (BEAKER) 8.9 mg/dL 8.4-10.2 (test code = 697) AST (SGOT) (BEAKER) 79 U/L 5-34 H (test code = 353) ALT (SGPT) (BEAKER) 33 U/L 6-55 (test code = 347) EGFR (BEAKER) (test 93 mL/min/1.73 ESTIMA LUPILLO GFR IS code = 1092) sq m NOT ACCURATE CREATININE CLEARANCE IN PREDICTING GLOMERULAR FILTRATION RATE . ESTIMATED GFR I S NOT APPLICABLE FOR DIALYSIS PATIEN TS. CBC (HEMOGRAM ONLY)2019-07-15 04:43:00 Test Item Value Reference Range Interpretation Comments WHITE BLOOD CELL COUNT (BEAKER) 8.0 K/ L 3.5-10.5 (test code = 775) RED BLOOD CELL COUNT (BEAKER) 3.45 M/ L 4.63-6.08 L (test code = 761) HEMOGLOBIN (BEAKER) (test code = 8.6 GM/DL 13.7-17.5 L 410) HEMATOCRIT (BEAKER) (test code = 29.0 % 40.1-51.0 L 411) MEAN CORPUSCULAR VOLUME (BEAKER) 84.1 fL 79.0-92.2 (test code = 753) MEAN CORPUSCULAR HEMOGLOBIN 24.9 pg 25.7-32.2 L (BEAKER) (test code = 751) MEAN CORPUSCULAR HEMOGLOBIN CONC 29.7 GM/DL 32.3-36.5 L (BEAKER) (test code = 752) RED CELL DISTRIBUTION WIDTH 19.1 % 11.6-14.4 H (BEAKER) (test code = 412) PLATELET COUNT (BEAKER) (test 114 K/CU MM 150-450 L code = 756) NUCLEATED RED BLOOD CELLS 0 /100 WBC 0-0 (BEAKER) (test code = 413) MALINI [id number] 16:10:00Reason for exam:->Recurrent GI bleedFINAL REPORT Transjugular intrahepatic portosystemic shunt, 07/14/2019. History: Respiratory recurrent esophageal variceal bleeding. Modality: Fluoroscopy. Sedation: General anesthesia was utilized. The vital signs were monitoredthroughout the procedure by anesthesia and remained stable. Older Adult Social Work Specialist: Iwona. Front End Architect: Rajesh. Approach: Right internal jugular vein Estimated [...] jugular vein, which was punctured under direct real-time ultrasound guidance with a micropuncture needle. An ultrasound image was saved to PACS. A 0.018 inch wire was placed through the needle into the right atrium. A 4 [place]an micropuncture sheath was placed. A 0.035 inch J-wire was placed through the micropuncture sheath and the sheath was exchanged for a 9 [place] sheath. A 5 [place] angled tip catheter was used to select [...] the right portal vein. A tapered 4 [place] glide catheter was advanced over the coronary wire into the portal vein. A Glidewire was advanced down the portal vein into the SMV and exchanged for Amplatz superstiff wire. A 5 [place]and[place] Cobra catheter was placed into the portal vein for a DSA run. The tract was measured at 6 cm. The 9 [place] sheath was exchanged for a 10 [place] long sheath which was advanced over the [...] (mmHg) - Pre-TIPS: Hepatic vein 9,Portal vein 24Post- TIPS: Hepatic vein 11,Portal vein17 The catheter and [...] with contrast. Impression: Successful, uncomplicated transjugular intrahepatic portosystemic shunt with general anesthesia. Signed: Scooby Bustillo MDReport Verified Date/Time: 07/14/2019 16:10:45 Reading Location: [place] [address] Angio Body Reading Room [id number] 06:22:00 Test Item Value Reference Range Interpretation Comments PHOSPHORUS (BEAKER) (test code = 2.9 mg/dL 2.3-4.7 604) [id number] 06:22:00 Test Item Value Reference Range Interpretation Comments MAGNESIUM (BEAKER) (test code = 1.5 mg/dL 1.6-2.6 L 627) BASIC METABOLIC [id number] 06:22:00 Test Item Value Reference Range Interpretation Comments SODIUM (BEAKER) 138 meq/L 136-145 (test code = 381) POTASSIUM (BEAKER) 3.4 meq/L 3.5-5.1 L (test code = 379) CHLORIDE (BEAKER) 103 meq/L 98-107 (test code = 382) CO2 (BEAKER) (test 32 meq/L 22-29 H code = 355) BLOOD UREA NITROGEN 7 mg/dL 7-21 (BEAKER) (test code = 354) CREATININE (BEAKER) 0.73 mg/dL 0.57-1.25 (test code = 358) GLUCOSE RANDOM 97 mg/dL 70-105 (BEAKER) (test code = 652) CALCIUM (BEAKER) 8.8 mg/dL 8.4-10.2 (test code = 697) EGFR (BEAKER) (test 116 mL/min/1.73 ESTIM ATED GFR IS code = 1092) sq m NOT ACCURATE CREATININE CLEARANCE IN PREDICTING GLOMERULAR FILTRATION RATE . ESTIMATED GFR I S NOT APPLICABLE FOR DIALYSIS PATIEN TS. HEPATIC FUNCTION [id number] 06:22:00 Test Item Value Reference Range Interpretation Comments TOTAL PROTEIN (BEAKER) (test code = 6.8 gm/dL 6.0-8.3 770) ALBUMIN (BEAKER) (test code = 1145) 3.4 g/dL 3.5-5.0 L BILIRUBIN TOTAL (BEAKER) (test code 0.7 mg/dL 0.2-1.2 = 377) BILIRUBIN DIRECT (BEAKER) (test 0.3 mg/dL 0.1-0.5 code = 706) ALKALINE PHOSPHATASE (BEAKER) (test 54 U/L 40-150 code = 346) AST (SGOT) (BEAKER) (test code = 81 U/L 5-34 H 353) ALT (SGPT) (BEAKER) (test code = 31 U/L 6-55 347) [id number] 06:09:00 Test Item Value Reference Range Interpretation Comments PARTIAL THROMBOPLASTIN TIME 31.2 seconds 22.5-36.0 (BEAKER) (test code = 760) PROTHROMBIN [id number] 06:08:00 Test Item Value Reference Range Interpretation Comments PROTIME (BEAKER) (test code = 15.2 seconds 11.9-14.2 H 759) INR (BEAKER) (test code = 370) 1.3 <=5.9 Effective 02/19/2019: PT Reference Range ChangeNew: 11.9-14.2 Previous: 11.7- 14.7RECOMMENDED COUMADIN/WARFARIN INR THERAPY RANGESSTANDARD DOSE: 2.0-3.0 Includes: PROPHYLAXIS for venous thrombosis, systemic embolization; TREATMENT for venous thrombosis and/or pulmonary embolus.HIGH RISK: Target INR is2.5-3.5 for patients wiht mechanical heart valves.CBC W/PLT COUNT & AUTO [id number] 05:58:00 Test Item Value Reference Range Interpretation Comments WHITE BLOOD CELL COUNT 5.1 K/ L 3.5-10.5 (BEAKER) (test code = 775) RED BLOOD CELL COUNT 3.01 M/ L 4.63-6.08 L (BEAKER) (test code = 761) HEMOGLOBIN (BEAKER) 7.6 GM/DL 13.7-17.5 L (test code = 410) HEMATOCRIT (BEAKER) 24.1 % 40.1-51.0 L (test code = 411) MEAN CORPUSCULAR VOLUME 80.1 fL 79.0-92.2 (BEAKER) (test code = 753) MEAN CORPUSCULAR 25.2 pg 25.7-32.2 L HEMOGLOBIN (BEAKER) (test code = 751) MEAN CORPUSCULAR 31.5 GM/DL 32.3-36.5 L HEMOGLOBIN CONC (BEAKER) (test code = 752) RED CELL DISTRIBUTION 18.6 % 11.6-14.4 H WIDTH (BEAKER) (test code = 412) PLATELET COUNT (BEAKER) 86 K/CU MM 150-450 L (test code = 756) MEAN PLATELET VOLUME Unable to report due (BEAKER) (test code = to abn ormal Platelet 754) population distribution. NUCLEATED RED BLOOD 0 /100 WBC 0-0 CELLS (BEAKER) (test code = 413) NEUTROPHILS RELATIVE 53 % PERCENT (BEAKER) (test code = 429) LYMPHOCYTES RELATIVE 31 % PERCENT (BEAKER) (test code = 430) MONOCYTES RELATIVE 10 % PERCENT (BEAKER) (test code = 431) EOSINOPHILS RELATIVE 5 % PERCENT (BEAKER) (test code = 432) BASOPHILS RELATIVE 1 % PERCENT (BEAKER) (test code = 437) NEUTROPHILS ABSOLUTE 2.66 K/ L 1.78-5.38 COUNT (BEAKER) (test code = 670) LYMPHOCYTES ABSOLUTE 1.57 K/ L 1.32-3.57 COUNT (BEAKER) (test code = 414) MONOCYTES ABSOLUTE 0.49 K/ L 0.30-0.82 COUNT (BEAKER) (test code = 415) EOSINOPHILS ABSOLUTE 0.26 K/ L 0.04-0.54 COUNT (BEAKER) (test code = 416) BASOPHILS ABSOLUTE 0.05 K/ L 0.01-0.08 COUNT (BEAKER) (test code = 417) IMMATURE 0 % 0-1 GRANULOCYTES-RELATIVE PERCENT (BEAKER) (test code = 2801) POCT-GLUCOSE [id number] 12:19:00 Test Item Value Reference Range Interpretation Comments POC-GLUCOSE METER 128 mg/dL 70-110 H TESTED AT [place] [address] ([facility]) (test code = [facility] 1538) [id number] POCT-GLUCOSE [id number] 07:14:00 Test Item Value Reference Range Interpretation Comments POC-GLUCOSE METER 123 mg/dL 70-110 H TESTED AT [place] [address] ([facility]) (test code = [facility] 1538) [id number] CBC W/PLT COUNT & AUTO [id number] 07:14:00 Test Item Value Reference Range Interpretation Comments WHITE BLOOD CELL COUNT 5.8 K/ L 3.5-10.5 (BEAKER) (test code = 775) RED BLOOD CELL COUNT 2.78 M/ L 4.63-6.08 L (BEAKER) (test code = 761) HEMOGLOBIN (BEAKER) 6.7 GM/DL 13.7-17.5 L (test code = 410) HEMATOCRIT (BEAKER) 22.5 % 40.1-51.0 L (test code = 411) MEAN CORPUSCULAR VOLUME 80.9 fL 79.0-92.2 (BEAKER) (test code = 753) MEAN CORPUSCULAR 24.1 pg 25.7-32.2 L HEMOGLOBIN (BEAKER) (test code = 751) MEAN CORPUSCULAR 29.8 GM/DL 32.3-36.5 L HEMOGLOBIN CONC (BEAKER) (test code = 752) RED CELL DISTRIBUTION 18.7 % 11.6-14.4 H WIDTH (BEAKER) (test code = 412) PLATELET COUNT (BEAKER) 90 K/CU MM 150-450 L (test code = 756) MEAN PLATELET VOLUME Unable to report due (BEAKER) (test code = to abn ormal Platelet 754) population distribution. NUCLEATED RED BLOOD 0 /100 WBC 0-0 CELLS (BEAKER) (test code = 413) NEUTROPHILS RELATIVE 54 % PERCENT (BEAKER) (test code = 429) LYMPHOCYTES RELATIVE 31 % PERCENT (BEAKER) (test code = 430) MONOCYTES RELATIVE 10 % PERCENT (BEAKER) (test code = 431) EOSINOPHILS RELATIVE 4 % PERCENT (BEAKER) (test code = 432) BASOPHILS RELATIVE 1 % PERCENT (BEAKER) (test code = 437) NEUTROPHILS ABSOLUTE 3.12 K/ L 1.78-5.38 COUNT (BEAKER) (test code = 670) LYMPHOCYTES ABSOLUTE 1.80 K/ L 1.32-3.57 COUNT (BEAKER) (test code = 414) MONOCYTES ABSOLUTE 0.56 K/ L 0.30-0.82 COUNT (BEAKER) (test code = 415) EOSINOPHILS ABSOLUTE 0.24 K/ L 0.04-0.54 COUNT (BEAKER) (test code = 416) BASOPHILS ABSOLUTE 0.06 K/ L 0.01-0.08 COUNT (BEAKER) (test code = 417) IMMATURE 0 % 0-1 GRANULOCYTES-RELATIVE PERCENT (BEAKER) (test code = 2801) [id number] 07:02:00 Test Item Value Reference Range Interpretation Comments PHOSPHORUS (BEAKER) (test code = 2.5 mg/dL 2.3-4.7 604) [id number] 07:02:00 Test Item Value Reference Range Interpretation Comments MAGNESIUM (BEAKER) (test code = 1.7 mg/dL 1.6-2.6 627) BASIC METABOLIC [id number] 07:02:00 Test Item Value Reference Range Interpretation Comments SODIUM (BEAKER) 137 meq/L 136-145 (test code = 381) POTASSIUM (BEAKER) 3.8 meq/L 3.5-5.1 (test code = 379) CHLORIDE (BEAKER) 103 meq/L 98-107 (test code = 382) CO2 (BEAKER) (test 30 meq/L 22-29 H code = 355) BLOOD UREA NITROGEN 13 mg/dL 7-21 (BEAKER) (test code = 354) CREATININE (BEAKER) 0.79 mg/dL 0.57-1.25 (test code = 358) GLUCOSE RANDOM 101 mg/dL 70-105 (BEAKER) (test code = 652) CALCIUM (BEAKER) 8.5 mg/dL 8.4-10.2 (test code = 697) EGFR (BEAKER) (test 106 mL/min/1.73 ESTIM ATED GFR IS code = 1092) sq m NOT ACCURATE CREATININE CLEARANCE IN PREDICTING GLOMERULAR FILTRATION RATE . ESTIMATED GFR I S NOT APPLICABLE FOR DIALYSIS PATIEN TS. HEPATIC FUNCTION [id number] 07:02:00 Test Item Value Reference Range Interpretation Comments TOTAL PROTEIN (BEAKER) (test code = 6.7 gm/dL 6.0-8.3 770) ALBUMIN (BEAKER) (test code = 1145) 3.4 g/dL 3.5-5.0 L BILIRUBIN TOTAL (BEAKER) (test code 0.8 mg/dL 0.2-1.2 = 377) BILIRUBIN DIRECT (BEAKER) (test 0.3 mg/dL 0.1-0.5 code = 706) ALKALINE PHOSPHATASE (BEAKER) (test 51 U/L 40-150 code = 346) AST (SGOT) (BEAKER) (test code = 75 U/L 5-34 H 353) ALT (SGPT) (BEAKER) (test code = 26 U/L 6-55 347) PROTHROMBIN [id number] 06:44:00 Test Item Value Reference Range Interpretation Comments PROTIME (BEAKER) (test code = 15.3 seconds 11.9-14.2 H 759) INR (BEAKER) (test code = 370) 1.3 <=5.9 Effective 02/19/2019: PT Reference Range ChangeNew: 11.9-14.2 Previous: 11.7- 14.7RECOMMENDED COUMADIN/WARFARIN INR THERAPY RANGESSTANDARD DOSE: 2.0-3.0 Includes: PROPHYLAXIS for venous thrombosis, systemic embolization; TREATMENT for venous thrombosis and/or pulmonary embolus.HIGH RISK: Target INR is2.5-3.5 for patients wiht mechanical heart valves.U/S, ABDOMINAL, [id number] 22:37:00Reason for exam:->assess for portal vein thrombus, patency [...] 16.8 cmin maximum dimension. Pancreas: Unremarkable. Right kidney: 10.2 x 5.6 x 5.8 cm. Normal [...] portal venous thrombosis. Splenomegaly. Cholelithiasis. Signed: Iftikhar Aguilar MDReport Verified Date/Time: 07/12/2019 22:37:47 POCT-GLUCOSE [id number] 21:09:00 Test Item Value Reference Range Interpretation Comments POC-GLUCOSE METER 110 mg/dL 70-110 TESTED AT [facility] (test code = [place] [facility] 1538) [address] POCT-GLUCOSE [id number] 17:13:00 Test Item Value Reference Range Interpretation Comments POC-GLUCOSE METER 133 mg/dL 70-110 H TESTED AT [place] [address] ([facility]) (test code = [place] [facility] 1538) [id number] POCT-GLUCOSE [id number] 07:21:00 Test Item Value Reference Range Interpretation Comments POC-GLUCOSE METER 98 mg/dL 70-110 TESTED AT [place] [address] ([facility]) (test code = [place] [facility] [address] 1538) BASIC METABOLIC [id number] 06:52:00 Test Item Value Reference Range Interpretation Comments SODIUM (BEAKER) 133 meq/L 136-145 L (test code = 381) POTASSIUM (BEAKER) 4.4 meq/L 3.5-5.1 (test code = 379) CHLORIDE (BEAKER) 99 meq/L 98-107 (test code = 382) CO2 (BEAKER) (test 28 meq/L 22-29 code = 355) BLOOD UREA NITROGEN 20 mg/dL 7-21 (BEAKER) (test code = 354) CREATININE (BEAKER) 0.81 mg/dL 0.57-1.25 (test code = 358) GLUCOSE RANDOM 102 mg/dL 70-105 (BEAKER) (test code = 652) CALCIUM (BEAKER) 8.3 mg/dL 8.4-10.2 L (test code = 697) EGFR (BEAKER) (test 103 mL/min/1.73 ESTIM ATED GFR IS code = 1092) sq m NOT ACCURATE CREATININE CLEARANCE IN PREDICTING GLOMERULAR FILTRATION RATE . ESTIMATED GFR I S NOT APPLICABLE FOR DIALYSIS PATIEN TS. HEPATIC FUNCTION [id number] 06:52:00 Test Item Value Reference Range Interpretation Comments TOTAL PROTEIN (BEAKER) (test code = 7.0 gm/dL 6.0-8.3 770) ALBUMIN (BEAKER) (test code = 1145) 3.5 g/dL 3.5-5.0 BILIRUBIN TOTAL (BEAKER) (test code 0.7 mg/dL 0.2-1.2 = 377) BILIRUBIN DIRECT (BEAKER) (test 0.3 mg/dL 0.1-0.5 code = 706) ALKALINE PHOSPHATASE (BEAKER) (test 49 U/L 40-150 code = 346) AST (SGOT) (BEAKER) (test code = 61 U/L 5-34 H 353) ALT (SGPT) (BEAKER) (test code = 21 U/L 6-55 347) [id number] 06:51:00 Test Item Value Reference Range Interpretation Comments PHOSPHORUS (BEAKER) (test code = 2.7 mg/dL 2.3-4.7 604) [id number] 06:51:00 Test Item Value Reference Range Interpretation Comments MAGNESIUM (BEAKER) (test code = 1.7 mg/dL 1.6-2.6 627) PROTHROMBIN [id number] 06:40:00 Test Item Value Reference Range Interpretation Comments PROTIME (BEAKER) (test code = 15.7 seconds 11.9-14.2 H 759) INR (BEAKER) (test code = 370) 1.3 <=5.9 Effective 02/19/2019: PT Reference Range ChangeNew: 11.9-14.2 Previous: 11.7- 14.7RECOMMENDED COUMADIN/WARFARIN INR THERAPY RANGESSTANDARD DOSE: 2.0-3.0 Includes: PROPHYLAXIS for venous thrombosis, systemic embolization; TREATMENT for venous thrombosis and/or pulmonary embolus.HIGH RISK: Target INR is2.5-3.5 for patients wiht mechanical heart valves.CBC W/PLT COUNT & AUTO [id number] 06:37:00 Test Item Value Reference Range Interpretation Comments WHITE BLOOD CELL COUNT 6.7 K/ L 3.5-10.5 (BEAKER) (test code = 775) RED BLOOD CELL COUNT 2.69 M/ L 4.63-6.08 L (BEAKER) (test code = 761) HEMOGLOBIN (BEAKER) 6.3 GM/DL 13.7-17.5 L (test code = 410) HEMATOCRIT (BEAKER) 21.5 % 40.1-51.0 L (test code = 411) MEAN CORPUSCULAR VOLUME 79.9 fL 79.0-92.2 (BEAKER) (test code = 753) MEAN CORPUSCULAR 23.4 pg 25.7-32.2 L HEMOGLOBIN (BEAKER) (test code = 751) MEAN CORPUSCULAR 29.3 GM/DL 32.3-36.5 L HEMOGLOBIN CONC (BEAKER) (test code = 752) RED CELL DISTRIBUTION 19.5 % 11.6-14.4 H WIDTH (BEAKER) (test code = 412) PLATELET COUNT (BEAKER) 96 K/CU MM 150-450 L (test code = 756) MEAN PLATELET VOLUME Unable to report due (BEAKER) (test code = to abn ormal Platelet 754) population distribution. NUCLEATED RED BLOOD 0 /100 WBC 0-0 CELLS (BEAKER) (test code = 413) NEUTROPHILS RELATIVE 46 % PERCENT (BEAKER) (test code = 429) LYMPHOCYTES RELATIVE 41 % PERCENT (BEAKER) (test code = 430) MONOCYTES RELATIVE 8 % PERCENT (BEAKER) (test code = 431) EOSINOPHILS RELATIVE 5 % PERCENT (BEAKER) (test code = 432) BASOPHILS RELATIVE 1 % PERCENT (BEAKER) (test code = 437) NEUTROPHILS ABSOLUTE 3.06 K/ L 1.78-5.38 COUNT (BEAKER) (test code = 670) LYMPHOCYTES ABSOLUTE 2.73 K/ L 1.32-3.57 COUNT (BEAKER) (test code = 414) MONOCYTES ABSOLUTE 0.50 K/ L 0.30-0.82 COUNT (BEAKER) (test code = 415) EOSINOPHILS ABSOLUTE 0.30 K/ L 0.04-0.54 COUNT (BEAKER) (test code = 416) BASOPHILS ABSOLUTE 0.05 K/ L 0.01-0.08 COUNT (BEAKER) (test code = 417) IMMATURE 0 % 0-1 GRANULOCYTES-RELATIVE PERCENT (BEAKER) (test code = 2801) LACTIC ACID, [id number] 05:59:00 Test Item Value Reference Range Interpretation Comments LACTATE BLOOD VENOUS (2) (BEAKER) 0.9 mmol/L 0.5-2.2 (test code = 2872) [id number] 05:55:00 Test Item Value Reference Range Interpretation Comments AMMONIA (BEAKER) (test code = 348) 56 mol/L 18-72 POCT-GLUCOSE [id number] 23:52:00 Test Item Value Reference Range Interpretation Comments POC-GLUCOSE METER 109 mg/dL 70-110 TESTED AT [facility] 67[address] (BEAKER) (test code = [place] 1538) [id number] [id number] 22:31:00 Test Item Value Reference Range Interpretation Comments MAGNESIUM (BEAKER) (test code = 1.7 mg/dL 1.6-2.6 627) COMPREHENSIVE METABOLIC [id number] 22:31:00 Test Item Value Reference Range Interpretation Comments TOTAL PROTEIN 8.2 gm/dL 6.0-8.3 (BEAKER) (test code = 770) ALBUMIN (BEAKER) 3.9 g/dL 3.5-5.0 (test code = 1145) ALKALINE PHOSPHATASE 58 U/L 40-150 (BEAKER) (test code = 346) BILIRUBIN TOTAL 0.8 mg/dL 0.2-1.2 (BEAKER) (test code = 377) SODIUM (BEAKER) (test 133 meq/L 136-145 L code = 381) POTASSIUM (BEAKER) 4.6 meq/L 3.5-5.1 (test code = 379) CHLORIDE (BEAKER) 99 meq/L 98-107 (test code = 382) CO2 (BEAKER) (test 25 meq/L 22-29 code = 355) BLOOD UREA NITROGEN 19 mg/dL 7-21 (BEAKER) (test code = 354) CREATININE (BEAKER) 0.83 mg/dL 0.57-1.25 (test code = 358) GLUCOSE RANDOM 95 mg/dL 70-105 (BEAKER) (test code = 652) CALCIUM (BEAKER) 9.0 mg/dL 8.4-10.2 (test code = 697) AST (SGOT) (BEAKER) 68 U/L 5-34 H (test code = 353) ALT (SGPT) (BEAKER) 26 U/L 6-55 (test code = 347) EGFR (BEAKER) (test 100 ESTIMATE D GFR IS code = 1092) mL/min/1.73 sq NOT ACCURA TE m CREATININE CLEARANCE IN PREDICTING GLOMERULAR FILTRATION RATE . ESTIMATED GFR I S NOT APPLICABLE FOR DIALYSIS PATIEN TS. LACTIC ACID, [id number] 22:23:00 Test Item Value Reference Range Interpretation Comments LACTATE BLOOD VENOUS 1.0 mmol/L 0.5-2.2 Specime n slightly (2) (BEAKER) (test hemolyzed code = 2872) [id number] 22:21:00 Test Item Value Reference Range Interpretation Comments AMMONIA (BEAKER) 52 mol/L 18-72 Specimen sl ightly (test code = 348) hemolyzed CBC W/PLT COUNT & AUTO [id number] 22:18:00 Test Item Value Reference Range Interpretation Comments WHITE BLOOD CELL COUNT 7.0 K/ L 3.5-10.5 (BEAKER) (test code = 775) RED BLOOD CELL COUNT 3.26 M/ L 4.63-6.08 L (BEAKER) (test code = 761) HEMOGLOBIN (BEAKER) 7.5 GM/DL 13.7-17.5 L (test code = 410) HEMATOCRIT (BEAKER) 26.0 % 40.1-51.0 L (test code = 411) MEAN CORPUSCULAR 79.8 fL 79.0-92.2 VOLUME (BEAKER) (test code = 753) MEAN CORPUSCULAR 23.0 pg 25.7-32.2 L HEMOGLOBIN (BEAKER) (test code = 751) MEAN CORPUSCULAR 28.8 GM/DL 32.3-36.5 L HEMOGLOBIN CONC (BEAKER) (test code = 752) RED CELL DISTRIBUTION 19.1 % 11.6-14.4 H WIDTH (BEAKER) (test code = 412) PLATELET COUNT 115 K/CU MM 150-450 L (BEAKER) (test code = 756) MEAN PLATELET VOLUME Unable to report due (BEAKER) (test code = to abn ormal Platelet 754) population distribution. NUCLEATED RED BLOOD 0 /100 WBC 0-0 CELLS (BEAKER) (test code = 413) NEUTROPHILS RELATIVE 43 % PERCENT (BEAKER) (test code = 429) LYMPHOCYTES RELATIVE 42 % PERCENT (BEAKER) (test code = 430) MONOCYTES RELATIVE 10 % PERCENT (BEAKER) (test code = 431) EOSINOPHILS RELATIVE 5 % PERCENT (BEAKER) (test code = 432) BASOPHILS RELATIVE 1 % PERCENT (BEAKER) (test code = 437) NEUTROPHILS ABSOLUTE 2.99 K/ L 1.78-5.38 COUNT (BEAKER) (test code = 670) LYMPHOCYTES ABSOLUTE 2.94 K/ L 1.32-3.57 COUNT (BEAKER) (test code = 414) MONOCYTES ABSOLUTE 0.67 K/ L 0.30-0.82 COUNT (BEAKER) (test code = 415) EOSINOPHILS ABSOLUTE 0.33 K/ L 0.04-0.54 COUNT (BEAKER) (test code = 416) BASOPHILS ABSOLUTE 0.06 K/ L 0.01-0.08 COUNT (BEAKER) (test code = 417) IMMATURE 0 % 0-1 GRANULOCYTES-RELATIVE PERCENT (BEAKER) (test code = 2801) BLOOD [id number] 08:01:00 Test Item Value Reference Range Interpretation Comments CULTURE (BEAKER) (test No growth in 5 days code = 1095) BLOOD [id number] 08:01:00 Test Item Value Reference Range Interpretation Comments CULTURE (BEAKER) (test No growth in 5 days code = 1095) HEPATITIS C PCR, [id number] 13:33:00 Test Item Value Reference Range Interpretation Comments HCV NUMERIC RESULT (BEAKER) 688907 IU/mL <15 H (test code = 2700) This test uses a Real-Time Polymerase Chain Reaction (RT-PCR) methodology and was performed using EFRA Ampliprep/EFRA TaqMan HCV test kit version 2.0 ([employer]).Reportable range for this assay is 15 - 100,000,000 IU per mL (1.18 - 8.00 Log IU/mL).[id number] 02:31:00 Test Item Value Reference Range Interpretation Comments PHOSPHORUS (BEAKER) (test code = 3.8 mg/dL 2.3-4.7 604) [id number] 02:31:00 Test Item Value Reference Range Interpretation Comments MAGNESIUM (BEAKER) (test code = 1.6 mg/dL 1.6-2.6 627) BASIC METABOLIC [id number] 02:31:00 Test Item Value Reference Range Interpretation Comments SODIUM (BEAKER) 136 meq/L 136-145 (test code = 381) POTASSIUM (BEAKER) 3.9 meq/L 3.5-5.1 (test code = 379) CHLORIDE (BEAKER) 98 meq/L 98-107 (test code = 382) CO2 (BEAKER) (test 27 meq/L 22-29 code = 355) BLOOD UREA NITROGEN 7 mg/dL 7-21 (BEAKER) (test code = 354) CREATININE (BEAKER) 0.82 mg/dL 0.57-1.25 (test code = 358) GLUCOSE RANDOM 121 mg/dL 70-105 H (BEAKER) (test code = 652) CALCIUM (BEAKER) 9.1 mg/dL 8.4-10.2 (test code = 697) EGFR (BEAKER) (test 101 mL/min/1.73 ESTIM ATED GFR IS code = 1092) sq m NOT ACCURATE CREATININE CLEARANCE IN PREDICTING GLOMERULAR FILTRATION RATE . ESTIMATED GFR I S NOT APPLICABLE FOR DIALYSIS PATIEN TS. CBC W/PLT COUNT & AUTO [id number] 02:12:00 Test Item Value Reference Range Interpretation Comments WHITE BLOOD CELL COUNT (BEAKER) 6.6 K/ L 3.5-10.5 (test code = 775) RED BLOOD CELL COUNT (BEAKER) 3.25 M/ L 4.63-6.08 L (test code = 761) HEMOGLOBIN (BEAKER) (test code = 8.6 GM/DL 13.7-17.5 L 410) HEMATOCRIT (BEAKER) (test code = 28.3 % 40.1-51.0 L 411) MEAN CORPUSCULAR VOLUME (BEAKER) 87.1 fL 79.0-92.2 (test code = 753) MEAN CORPUSCULAR HEMOGLOBIN 26.5 pg 25.7-32.2 (BEAKER) (test code = 751) MEAN CORPUSCULAR HEMOGLOBIN CONC 30.4 GM/DL 32.3-36.5 L (BEAKER) (test code = 752) RED CELL DISTRIBUTION WIDTH 17.7 % 11.6-14.4 H (BEAKER) (test code = 412) PLATELET COUNT (BEAKER) (test code 89 K/CU MM 150-450 L = 756) MEAN PLATELET VOLUME (BEAKER) 11.7 fL 9.4-12.4 (test code = 754) NUCLEATED RED BLOOD CELLS (BEAKER) 0 /100 WBC 0-0 (test code = 413) NEUTROPHILS RELATIVE PERCENT 67 % (BEAKER) (test code = 429) LYMPHOCYTES RELATIVE PERCENT 21 % (BEAKER) (test code = 430) MONOCYTES RELATIVE PERCENT 6 % (BEAKER) (test code = 431) EOSINOPHILS RELATIVE PERCENT 4 % (BEAKER) (test code = 432) BASOPHILS RELATIVE PERCENT 1 % (BEAKER) (test code = 437) NEUTROPHILS ABSOLUTE COUNT 4.46 K/ L 1.78-5.38 (BEAKER) (test code = 670) LYMPHOCYTES ABSOLUTE COUNT 1.41 K/ L 1.32-3.57 (BEAKER) (test code = 414) MONOCYTES ABSOLUTE COUNT (BEAKER) 0.37 K/ L 0.30-0.82 (test code = 415) EOSINOPHILS ABSOLUTE COUNT 0.29 K/ L 0.04-0.54 (BEAKER) (test code = 416) BASOPHILS ABSOLUTE COUNT (BEAKER) 0.06 K/ L 0.01-0.08 (test code = 417) IMMATURE GRANULOCYTES-RELATIVE 1 % 0-1 PERCENT (BEAKER) (test code = 2801) POCT-GLUCOSE [id number] 00:21:00 Test Item Value Reference Range Interpretation Comments POC-GLUCOSE METER 151 mg/dL 70-110 H TESTED AT [place] [address] ([facility]) (test code = [facility] 1538) [address] HEMOGLOBIN AND [id number] 18:41:00 Test Item Value Reference Range Interpretation Comments HEMOGLOBIN (BEAKER) (test code = 8.2 GM/DL 13.7-17.5 L 410) HEMATOCRIT (BEAKER) (test code = 27.6 % 40.1-51.0 L 411) B-TYPE NATRIURETIC FACTOR (BNP)[id number] 13:14:00 Test Item Value Reference Range Interpretation Comments B-TYPE NATRIURETIC PEPTIDE (BEAKER) 79 pg/mL 0-100 (test code = 700) HEMOGLOBIN AND [id number] 12:33:00 Test Item Value Reference Range Interpretation Comments HEMOGLOBIN (BEAKER) (test code = 8.5 GM/DL 13.7-17.5 L 410) HEMATOCRIT (BEAKER) (test code = 28.6 % 40.1-51.0 L 411) POCT-GLUCOSE [id number] 11:21:00 Test Item Value Reference Range Interpretation Comments POC-GLUCOSE METER 130 mg/dL 70-110 H TESTED AT [place] [address] [facility] (test code = [facility] 1538) [address] POCT-GLUCOSE [id number] 07:30:00 Test Item Value Reference Range Interpretation Comments POC-GLUCOSE METER 112 mg/dL 70-110 H TESTED AT [facility] 6720 (BEAKER) (test code = [place] 1538) [address] [id number] 06:15:00 Test Item Value Reference Range Interpretation Comments PHOSPHORUS (BEAKER) (test code = 3.0 mg/dL 2.3-4.7 604) [id number] 06:15:00 Test Item Value Reference Range Interpretation Comments MAGNESIUM (BEAKER) (test code = 1.5 mg/dL 1.6-2.6 L 627) BASIC METABOLIC [id number] 06:15:00 Test Item Value Reference Range Interpretation Comments SODIUM (BEAKER) 137 meq/L 136-145 (test code = 381) POTASSIUM (BEAKER) 3.7 meq/L 3.5-5.1 (test code = 379) CHLORIDE (BEAKER) 98 meq/L 98-107 (test code = 382) CO2 (BEAKER) (test 30 meq/L 22-29 H code = 355) BLOOD UREA NITROGEN 8 mg/dL 7-21 (BEAKER) (test code = 354) CREATININE (BEAKER) 0.80 mg/dL 0.57-1.25 (test code = 358) GLUCOSE RANDOM 115 mg/dL 70-105 H (BEAKER) (test code = 652) CALCIUM (BEAKER) 9.0 mg/dL 8.4-10.2 (test code = 697) EGFR (BEAKER) (test 104 mL/min/1.73 ESTIM ATED GFR IS code = 1092) sq m NOT ACCURATE CREATININE CLEARANCE IN PREDICTING GLOMERULAR FILTRATION RATE . ESTIMATED GFR I S NOT APPLICABLE FOR DIALYSIS PATIEN TS. HEMOGLOBIN AND [id number] 05:18:00 Test Item Value Reference Range Interpretation Comments HEMOGLOBIN (BEAKER) (test code = 8.1 GM/DL 13.7-17.5 L 410) HEMATOCRIT (BEAKER) (test code = 26.9 % 40.1-51.0 L 411) CBC W/PLT COUNT & AUTO [id number] 05:18:00 Test Item Value Reference Range Interpretation Comments WHITE BLOOD CELL COUNT (BEAKER) 6.3 K/ L 3.5-10.5 (test code = 775) RED BLOOD CELL COUNT (BEAKER) 3.09 M/ L 4.63-6.08 L (test code = 761) HEMOGLOBIN (BEAKER) (test code = 8.1 GM/DL 13.7-17.5 L 410) HEMATOCRIT (BEAKER) (test code = 26.9 % 40.1-51.0 L 411) MEAN CORPUSCULAR VOLUME (BEAKER) 87.1 fL 79.0-92.2 (test code = 753) MEAN CORPUSCULAR HEMOGLOBIN 26.2 pg 25.7-32.2 (BEAKER) (test code = 751) MEAN CORPUSCULAR HEMOGLOBIN CONC 30.1 GM/DL 32.3-36.5 L (BEAKER) (test code = 752) RED CELL DISTRIBUTION WIDTH 17.6 % 11.6-14.4 H (BEAKER) (test code = 412) PLATELET COUNT (BEAKER) (test code 87 K/CU MM 150-450 L = 756) MEAN PLATELET VOLUME (BEAKER) 12.3 fL 9.4-12.4 (test code = 754) NUCLEATED RED BLOOD CELLS (BEAKER) 0 /100 WBC 0-0 (test code = 413) NEUTROPHILS RELATIVE PERCENT 69 % (BEAKER) (test code = 429) LYMPHOCYTES RELATIVE PERCENT 20 % (BEAKER) (test code = 430) MONOCYTES RELATIVE PERCENT 7 % (BEAKER) (test code = 431) EOSINOPHILS RELATIVE PERCENT 3 % (BEAKER) (test code = 432) BASOPHILS RELATIVE PERCENT 1 % (BEAKER) (test code = 437) NEUTROPHILS ABSOLUTE COUNT 4.31 K/ L 1.78-5.38 (BEAKER) (test code = 670) LYMPHOCYTES ABSOLUTE COUNT 1.23 K/ L 1.32-3.57 L (BEAKER) (test code = 414) MONOCYTES ABSOLUTE COUNT (BEAKER) 0.46 K/ L 0.30-0.82 (test code = 415) EOSINOPHILS ABSOLUTE COUNT 0.18 K/ L 0.04-0.54 (BEAKER) (test code = 416) BASOPHILS ABSOLUTE COUNT (BEAKER) 0.05 K/ L 0.01-0.08 (test code = 417) IMMATURE GRANULOCYTES-RELATIVE 1 % 0-1 PERCENT (BEAKER) (test code = 2801) HEMOGLOBIN AND [id number] 23:49:00 Test Item Value Reference Range Interpretation Comments HEMOGLOBIN (BEAKER) (test code = 7.9 GM/DL 13.7-17.5 L 410) HEMATOCRIT (BEAKER) (test code = 26.0 % 40.1-51.0 L 411) POCT-GLUCOSE [id number] 23:08:00 Test Item Value Reference Range Interpretation Comments POC-GLUCOSE METER 117 mg/dL 70-110 H TESTED AT [facility] 67 ([facility]) (test code = [facility] 1538) [address] POCT-GLUCOSE [id number] 17:31:00 Test Item Value Reference Range Interpretation Comments POC-GLUCOSE METER 110 mg/dL 70-110 TESTED AT [place] [address] ([facility]) (test code = [facility] 1538) [address] [id number] 17:04:00 Test Item Value Reference Range Interpretation Comments PROTIME ([facility]) (test code = 15.8 seconds 11.9-14.2 H 759) INR ([facility]) (test code = 370) 1.3 <=5.9 PARTIAL THROMBOPLASTIN TIME 30.5 seconds 22.5-36.0 ([facility]) (test code = 760) Effective 02/19/2019: PT Reference Range ChangeNew: 11.9-14.2 Previous: 11.7- 14.7RECOMMENDED COUMADIN/WARFARIN INR THERAPY RANGESSTANDARD DOSE: 2.0-3.0 Includes: PROPHYLAXIS for venous thrombosis, systemic embolization; TREATMENT for venous thrombosis and/or pulmonary embolus.HIGH RISK: Target INR is2.5-3.5 for patients wiht mechanical heart valves.[id number] 17:04:00 Test Item Value Reference Range Interpretation Comments FIBRINOGEN LEVEL (BEAKER) (test 204 mg/dl 225-434 L code = 658) HEMOGLOBIN AND [id number] 16:57:00 Test Item Value Reference Range Interpretation Comments HEMOGLOBIN (BEAKER) (test code = 8.1 GM/DL 13.7-17.5 L 410) HEMATOCRIT (BEAKER) (test code = 26.4 % 40.1-51.0 L 411) POCT-GLUCOSE [id number] 12:00:00 Test Item Value Reference Range Interpretation Comments POC-GLUCOSE METER 163 mg/dL 70-110 H TESTED AT [facility] 6720 (BEAKER) (test code = [place] 1538) [address] HEPATITIS C [id number] 09:24:00 Test Item Value Reference Range Interpretation Comments HEPATITIS C ANTIBODY (BEAKER) (test Reactive Nonreactive A code = 367) RAD, CHEST, 1 VIEW, NON [id number] 08:47:00Reason for exam:- >hypoxemiaShould this be performed at the bedside?->YesFINAL REPORT RAD, CHEST, 1 VIEW, NON DEPT CLINICAL INDICATION: hypoxemia COMPARISON: None TECHNIQUE: AP view of the chest FINDINGS: Lung volumes are low, with bibasilar atelectasis. No focal consolidation, pleural effusion, or pneumothorax. Cardiomediastinal silhouette, nena, and pulmonary vasculature are within normal limits. IMPRESSION:Low lung volumes with bibasilar atelectasis.Otherwise no acute cardiopulmonary abnormality. Signed: Estee Olson Verified Date/Time: 04/23/2019 08:47:47 Reading Location: [facility] Radiology Reading Room Electronically signedby: ESTEE OLSON MD on 04/23/2019 08:47 AMHEPATITIS B SURFACE [id number] 08:01:00 Test Item Value Reference Range Interpretation Comments HEPATITIS B SURFACE ANTIBODY < mIU/mL <8.0 (BEAKER) (test code = 647) HEPATITIS A ANTIBODY, [id number] 08:01:00 Test Item Value Reference Range Interpretation Comments HEPATITIS A IGG ANTIBODY (BEAKER) Reactive Nonreactive A (test code = 2797) ALPHA FETOPROTEIN (AFP), TUMOR [id number] 07:56:00 Test Item Value Reference Range Interpretation Comments ALPHA-FETOPROTEIN (BEAKER) (test 5.7 ng/mL <10.0 code = 1094) HEPATITIS A ANTIBODY, [id number] 07:56:00 Test Item Value Reference Range Interpretation Comments HEPATITIS A IGM ANTIBODY (BEAKER) Nonreactive Nonreactive (test code = 498) HEPATITIS B CORE ANTIBODY, [id number] 07:56:00 Test Item Value Reference Range Interpretation Comments HEPATITIS B CORE TOTAL ANTIBODY Nonreactive Nonreactive (BEAKER) (test code = 497) HEPATITIS B SURFACE [id number] 07:52:00 Test Item Value Reference Range Interpretation Comments HEPATITIS B SURFACE ANTIGEN (2) Nonreactive Nonreactive (BEAKER) (test code = 2585) [id number] 06:11:00 Test Item Value Reference Range Interpretation Comments PHOSPHORUS (BEAKER) (test code = 1.3 mg/dL 2.3-4.7 LL 604) [id number] 06:09:00 Test Item Value Reference Range Interpretation Comments MAGNESIUM (BEAKER) (test code = 2.0 mg/dL 1.6-2.6 627) BASIC METABOLIC [id number] 06:09:00 Test Item Value Reference Range Interpretation Comments SODIUM (BEAKER) 132 meq/L 136-145 L (test code = 381) POTASSIUM (BEAKER) 4.2 meq/L 3.5-5.1 (test code = 379) CHLORIDE (BEAKER) 98 meq/L 98-107 (test code = 382) CO2 (BEAKER) (test 29 meq/L 22-29 code = 355) BLOOD UREA NITROGEN 17 mg/dL 7-21 (BEAKER) (test code = 354) CREATININE (BEAKER) 0.85 mg/dL 0.57-1.25 (test code = 358) GLUCOSE RANDOM 112 mg/dL 70-105 H (BEAKER) (test code = 652) CALCIUM (BEAKER) 8.5 mg/dL 8.4-10.2 (test code = 697) EGFR (BEAKER) (test 97 mL/min/1.73 ESTIMA LUPILLO GFR IS code = 1092) sq m NOT ACCURATE CREATININE CLEARANCE IN PREDICTING GLOMERULAR FILTRATION RATE . ESTIMATED GFR I S NOT APPLICABLE FOR DIALYSIS PATIEN TS. POCT-GLUCOSE [id number] 06:03:00 Test Item Value Reference Range Interpretation Comments POC-GLUCOSE METER 102 mg/dL 70-110 TESTED AT [facility] 6720 (BEAKER) (test code = [place] 1538) [address] HEMOGLOBIN AND [id number] 05:21:00 Test Item Value Reference Range Interpretation Comments HEMOGLOBIN (BEAKER) (test code = 6.8 GM/DL 13.7-17.5 L 410) HEMATOCRIT (BEAKER) (test code = 22.8 % 40.1-51.0 L 411) CBC W/PLT COUNT & AUTO [id number] 05:21:00 Test Item Value Reference Range Interpretation Comments WHITE BLOOD CELL COUNT (BEAKER) 9.5 K/ L 3.5-10.5 (test code = 775) RED BLOOD CELL COUNT (BEAKER) 2.64 M/ L 4.63-6.08 L (test code = 761) HEMOGLOBIN (BEAKER) (test code = 6.8 GM/DL 13.7-17.5 L 410) HEMATOCRIT (BEAKER) (test code = 22.8 % 40.1-51.0 L 411) MEAN CORPUSCULAR VOLUME (BEAKER) 86.4 fL 79.0-92.2 (test code = 753) MEAN CORPUSCULAR HEMOGLOBIN 25.8 pg 25.7-32.2 (BEAKER) (test code = 751) MEAN CORPUSCULAR HEMOGLOBIN CONC 29.8 GM/DL 32.3-36.5 L (BEAKER) (test code = 752) RED CELL DISTRIBUTION WIDTH 18.3 % 11.6-14.4 H (BEAKER) (test code = 412) PLATELET COUNT (BEAKER) (test code 78 K/CU MM 150-450 L = 756) MEAN PLATELET VOLUME (BEAKER) 11.2 fL 9.4-12.4 (test code = 754) NUCLEATED RED BLOOD CELLS (BEAKER) 0 /100 WBC 0-0 (test code = 413) NEUTROPHILS RELATIVE PERCENT 79 % (BEAKER) (test code = 429) LYMPHOCYTES RELATIVE PERCENT 15 % (BEAKER) (test code = 430) MONOCYTES RELATIVE PERCENT 4 % (BEAKER) (test code = 431) EOSINOPHILS RELATIVE PERCENT 0 % (BEAKER) (test code = 432) BASOPHILS RELATIVE PERCENT 0 % (BEAKER) (test code = 437) NEUTROPHILS ABSOLUTE COUNT 7.45 K/ L 1.78-5.38 H (BEAKER) (test code = 670) LYMPHOCYTES ABSOLUTE COUNT 1.46 K/ L 1.32-3.57 (BEAKER) (test code = 414) MONOCYTES ABSOLUTE COUNT (BEAKER) 0.42 K/ L 0.30-0.82 (test code = 415) EOSINOPHILS ABSOLUTE COUNT 0.02 K/ L 0.04-0.54 L (BEAKER) (test code = 416) BASOPHILS ABSOLUTE COUNT (BEAKER) 0.02 K/ L 0.01-0.08 (test code = 417) IMMATURE GRANULOCYTES-RELATIVE 1 % 0-1 PERCENT (BEAKER) (test code = 2801) HEMOGLOBIN AND [id number] 00:06:00 Test Item Value Reference Range Interpretation Comments HEMOGLOBIN (BEAKER) (test code = 7.4 GM/DL 13.7-17.5 L 410) HEMATOCRIT (BEAKER) (test code = 24.6 % 40.1-51.0 L 411) POCT-GLUCOSE [id number] 22:31:00 Test Item Value Reference Range Interpretation Comments POC-GLUCOSE METER 151 mg/dL 70-110 H TESTED AT [facility] 6720 (EULA) (test code = [place] 1538) [address] U/S, ABDOMINAL, WITH [id number] 21:18:00Reason for exam:- >cirrhosisShould this be performed at the bedside?->YesFINAL REPORT INDICATION: cirrhosis COMPARISON: None TECHNIQUE: Real- time banerjee-scale transabdominal and color and spectral Doppler ultrasound. [...] Not well-seen. Spleen: Size: 14.8cm. Echogenicity:Unremarkable. Right kidney: Size: 10.8 cm. Parenchyma: Normal echogenicity. No cysts. Punctate echogenic shadowing reflectors including upper pole 9 mm and interpolar 5 mm calculi. Hydronephrosis: None. Left kidney: Size: 1.9 cm. Parenchyma: Normal echogenicity. No cysts. Punctateechogenic shadowing factors [...] within normal limits. Mild splenomegaly. Signed: Ranjit Palma MDReport Verified Date/Time: 04/22/2019 21:18:54 HEMOGLOBIN AND [id number] 18:36:00 Test Item Value Reference Range Interpretation Comments HEMOGLOBIN (BEAKER) (test code = 7.6 GM/DL 13.7-17.5 L 410) HEMATOCRIT (BEAKER) (test code = 25.2 % 40.1-51.0 L 411) POCT-GLUCOSE [id number] 18:24:00 Test Item Value Reference Range Interpretation Comments POC-GLUCOSE METER 141 mg/dL 70-110 H TESTED AT [place] [address] ([facility]) (test code = [facility] 1538) [address] HEMOGLOBIN [id number] 14:28:00 Test Item Value Reference Range Interpretation Comments HEMOGLOBIN A1C (BEAKER) (test code = 5.6 % 4.3-6.1 368) HEMOGLOBIN AND [id number] 13:56:00 Test Item Value Reference Range Interpretation Comments HEMOGLOBIN (BEAKER) (test code = 7.7 GM/DL 13.7-17.5 L 410) HEMATOCRIT (BEAKER) (test code = 26.0 % 40.1-51.0 L 411) POCT-GLUCOSE [id number] 12:53:00 Test Item Value Reference Range Interpretation Comments POC-GLUCOSE METER 146 mg/dL 70-110 H TESTED AT [place] [address] ([facility]) (test code = [facility] 1538) [address] CALCIUM, [id number] 10:54:00 Test Item Value Reference Range Interpretation Comments CALCIUM IONIZED (BEAKER) (test 1.16 mmol/L 1.12-1.27 code = 698) PH, BLOOD (BEAKER) (test code = 7.30 1810) POCT-GLUCOSE [id number] 08:24:00 Test Item Value Reference Range Interpretation Comments POC-GLUCOSE METER 172 mg/dL 70-110 H TESTED AT [facility] 6720 (BEAKER) (test code = [place] [facility] 1538) [address] CBC W/PLT COUNT & AUTO [id number] 05:48:00 Test Item Value Reference Range Interpretation Comments WHITE BLOOD CELL COUNT (BEAKER) 12.6 K/ L 3.5-10.5 H (test code = 775) RED BLOOD CELL COUNT (BEAKER) 3.07 M/ L 4.63-6.08 L (test code = 761) HEMOGLOBIN (BEAKER) (test code = 7.9 GM/DL 13.7-17.5 L 410) HEMATOCRIT (BEAKER) (test code = 26.2 % 40.1-51.0 L 411) MEAN CORPUSCULAR VOLUME (BEAKER) 86.6 fL 79.0-92.2 (test code = 753) MEAN CORPUSCULAR HEMOGLOBIN 26.1 pg 25.7-32.2 (BEAKER) (test code = 751) MEAN CORPUSCULAR HEMOGLOBIN CONC 30.1 GM/DL 32.3-36.5 L (BEAKER) (test code = 752) RED CELL DISTRIBUTION WIDTH 17.8 % 11.6-14.4 H (BEAKER) (test code = 412) PLATELET COUNT (BEAKER) (test 100 K/CU MM 150-450 L code = 756) MEAN PLATELET VOLUME (BEAKER) 13.1 fL 9.4-12.4 H (test code = 754) NUCLEATED RED BLOOD CELLS 0 /100 WBC 0-0 (BEAKER) (test code = 413) NEUTROPHILS RELATIVE PERCENT 90 % (BEAKER) (test code = 429) LYMPHOCYTES RELATIVE PERCENT 6 % (BEAKER) (test code = 430) MONOCYTES RELATIVE PERCENT 2 % (BEAKER) (test code = 431) EOSINOPHILS RELATIVE PERCENT 0 % (BEAKER) (test code = 432) BASOPHILS RELATIVE PERCENT 0 % (BEAKER) (test code = 437) NEUTROPHILS ABSOLUTE COUNT 11.23 K/ L 1.78-5.38 H (BEAKER) (test code = 670) LYMPHOCYTES ABSOLUTE COUNT 0.78 K/ L 1.32-3.57 L (BEAKER) (test code = 414) MONOCYTES ABSOLUTE COUNT (BEAKER) 0.30 K/ L 0.30-0.82 (test code = 415) EOSINOPHILS ABSOLUTE COUNT 0.01 K/ L 0.04-0.54 L (BEAKER) (test code = 416) BASOPHILS ABSOLUTE COUNT (BEAKER) 0.04 K/ L 0.01-0.08 (test code = 417) IMMATURE GRANULOCYTES-RELATIVE 2 % 0-1 H PERCENT (BEAKER) (test code = 2801) [id number] 05:41:00 Test Item Value Reference Range Interpretation Comments PHOSPHORUS (BEAKER) (test code = 2.7 mg/dL 2.3-4.7 604) [id number] 05:41:00 Test Item Value Reference Range Interpretation Comments MAGNESIUM (BEAKER) (test code = 1.6 mg/dL 1.6-2.6 627) BASIC METABOLIC [id number] 05:41:00 Test Item Value Reference Range Interpretation Comments SODIUM (BEAKER) 134 meq/L 136-145 L (test code = 381) POTASSIUM (BEAKER) 4.7 meq/L 3.5-5.1 (test code = 379) CHLORIDE (BEAKER) 103 meq/L 98-107 (test code = 382) CO2 (BEAKER) (test 26 meq/L 22-29 code = 355) BLOOD UREA NITROGEN 21 mg/dL 7-21 (BEAKER) (test code = 354) CREATININE (BEAKER) 1.07 mg/dL 0.57-1.25 (test code = 358) GLUCOSE RANDOM 182 mg/dL 70-105 H (BEAKER) (test code = 652) CALCIUM (BEAKER) 8.2 mg/dL 8.4-10.2 L (test code = 697) EGFR (BEAKER) (test 74 mL/min/1.73 ESTIMA LUPILLO GFR IS code = 1092) sq m NOT ACCURATE CREATININE CLEARANCE IN PREDICTING GLOMERULAR FILTRATION RATE . ESTIMATED GFR I S NOT APPLICABLE FOR DIALYSIS PATIEN TS. HEMOGLOBIN AND [id number] 05:21:00 Test Item Value Reference Range Interpretation Comments HEMOGLOBIN (BEAKER) (test code = 7.9 GM/DL 13.7-17.5 L 410) HEMATOCRIT (BEAKER) (test code = 26.2 % 40.1-51.0 L 411) PROTHROMBIN [id number] 01:04:00 Test Item Value Reference Range Interpretation Comments PROTIME (BEAKER) (test code = 15.9 seconds 11.9-14.2 H 759) INR (BEAKER) (test code = 370) 1.3 <=5.9 Effective 02/19/2019: PT Reference Range ChangeNew: 11.9-14.2 Previous: 11.7- 14.7RECOMMENDED COUMADIN/WARFARIN INR THERAPY RANGESSTANDARD DOSE: 2.0-3.0 Includes: PROPHYLAXIS for venous thrombosis, systemic embolization; TREATMENT for venous thrombosis and/or pulmonary embolus.HIGH RISK: Target INR is2.5-3.5 for patients wiht mechanical heart valves.[id number] 01:04:00 Test Item Value Reference Range Interpretation Comments PARTIAL THROMBOPLASTIN TIME 29.9 seconds 22.5-36.0 (BEAKER) (test code = 760) [id number] 00:08:00 Test Item Value Reference Range Interpretation Comments ETHANOL (BEAKER) (test code = 400) < mg/dL <=10 COMPREHENSIVE METABOLIC [id number] 00:04:00 Test Item Value Reference Range Interpretation Comments TOTAL PROTEIN 7.5 gm/dL 6.0-8.3 (BEAKER) (test code = 770) ALBUMIN (BEAKER) 3.7 g/dL 3.5-5.0 (test code = 1145) ALKALINE PHOSPHATASE 107 U/L 40-150 (BEAKER) (test code = 346) BILIRUBIN TOTAL 1.3 mg/dL 0.2-1.2 H (BEAKER) (test code = 377) SODIUM (BEAKER) (test 134 meq/L 136-145 L code = 381) POTASSIUM (BEAKER) 4.6 meq/L 3.5-5.1 (test code = 379) CHLORIDE (BEAKER) 102 meq/L 98-107 (test code = 382) CO2 (BEAKER) (test 26 meq/L 22-29 code = 355) BLOOD UREA NITROGEN 21 mg/dL 7-21 (BEAKER) (test code = 354) CREATININE (BEAKER) 1.13 mg/dL 0.57-1.25 (test code = 358) GLUCOSE RANDOM 190 mg/dL 70-105 H (BEAKER) (test code = 652) CALCIUM (BEAKER) 8.3 mg/dL 8.4-10.2 L (test code = 697) AST (SGOT) (BEAKER) 79 U/L 5-34 H (test code = 353) ALT (SGPT) (BEAKER) 28 U/L 6-55 (test code = 347) EGFR (BEAKER) (test 70 mL/min/1.73 ESTIMA LUPILLO GFR IS code = 1092) sq m NOT ACCURATE CREATININE CLEARANCE IN PREDICTING GLOMERULAR FILTRATION RATE . ESTIMATED GFR I S NOT APPLICABLE FOR DIALYSIS PATIEN TS. [id number] 23:55:00 Test Item Value Reference Range Interpretation Comments AMMONIA (BEAKER) (test code = 348) 45 mol/L 18-72 HEMOGLOBIN AND [id number] 23:45:00 Test Item Value Reference Range Interpretation Comments HEMOGLOBIN (BEAKER) (test code = 8.0 GM/DL 13.7-17.5 L 410) HEMATOCRIT (BEAKER) (test code = 26.9 % 40.1-51.0 L 411)
[2020-08-29] MEDS ORDERED: FENTANYL CITR 100 MCG/2 ML ONE ×2 (16:15→21:35)
[2020-08-29] MEDS ORDERED: ONDANSETRON 4 MG/2 ML VIAL ONE (16:34)
--- NOTE | 2020-08-29 16:55 | RAD REPORT ---
EXAM DESCRIPTION: RAD - Chest Single View - 08/29/2020 4:48 pm CLINICAL HISTORY: Rib Pain - Left;SOB Chest pain. COMPARISON: Chest Pa And Lat (2 Views) dated 12/16/2019; Chest Single View dated 07/11/2019; Chest Si ngle View dated 04/21/2019 FINDINGS: Portable technique limits examination quality. Opacification of the left lower lobe is present probably representing atelectasis and pleural effusio n the heart is upper limit of normal in size. No displaced fractures.Recommend follow-up CT chest.
[2020-08-29 16:56] LABS: Absolute Lymphocytes (CBC) 0.7 K/uL (0.7-4.9); Basophils % 0.3 % (0-1.3); Lymphocytes % 6.9 % (15.3-44.8); MPV 10.5 fL (7.6-11.3); RBC Red Blood Cell Count 4.15 M/uL (4.33-5.43)
[2020-08-29 17:20] LABS: Protime INR 2.55
[2020-08-29] MEDS ORDERED: ALBUTEROL INHALER 60 PUFF/8 GM IH ONE (17:43)
[2020-08-29 17:59] LABS: Albumin 1.9 g/dL (3.4-5.0); Bilirubin Direct 3.7 mg/dL (0-0.2); Bilirubin Total 4.6 mg/dL (0.2-1.0); Magnesium 1.6 mg/dL (1.8-2.4); Potassium 3.7 mmol/L (3.5-5.1); Protein, Total 6.4 g/dL (6.4-8.2); Troponin (Emerg Dept Use Only) 0.13 ng/mL (0.0-0.045)
[2020-08-29 18:00] LABS: Blood Morphology Comment NOT SEEN (NOT SEEN); Platelet Estimate DECR; Platelets, Giant FEW
[2020-08-29] MEDS ORDERED: D50W 50 ML IV ONE ×5 (18:25→20:40)
--- NOTE | 2020-08-29 19:03 | RAD REPORT ---
EXAM DESCRIPTION: CT - Chest Abd Pelvis Wo Con - 08/29/2020 6:25 pm CLINICAL HISTORY: Chest and abdomen pain. Chest pain;SOB;Rib Pain - Left COMPARISON: Stone Protocol dated 12/16/2019 TECHNIQUE: A limited noncontrast study was performed. All CT scans are performed using dose optimization technique as appropriate and may include automated exposure control or mA/KV adjustment according to patient size. FINDINGS: Multiple bilateral pulmonary nodules are present of varying sizes. The largest nodule on t he left is present anteriorly measuring [address] dated 12/16/2019 included lung bases and no nodules were present in the lung bases at that time. Hazy ground-glass opacification is seen in the right upper lobe, having the appearance of infection. No airspace consolidation detected. There is prominent pleural thickening noted with lobulated appearance along the medial superior left hemithorax maximally measuring 21 mm in thickness. A small to moderate loculated pleural effusion is present on the left with mild left basilar atelectasis noted.The esophagus appears dilated with fluid throughout.No finding to indicate axillary, mediastinal or hilar adenopathy. Small amount of fluid is seen along the right hepatic edge. The liver appears enlarged and cirrhotic with a TIPS shunt noted. Splenic size is mildly enlarged. Small caliceal stones are present in both k idneys without hydronephrosis. Gallstones are present in the gallbladder. The colon appears thickened particularly the cecum and ascending colon wall extending to the level of the hepatic flexure. Normal appendix. No bowel obstruction or free air. Trace pelvic free fluid. No pathologic lymphadenopathy in the abdomen or pelvis. Mildly displaced acute fractures of the anterolateral left ninth, eighth, seventh, sixth ribs noted. IMPRESSION: Multiple pulmonary nodules are present bilaterally, likely new since November 2019 study.Pr imary differential would include infection/septic emboli or metastatic disease. Focally prominent pleural thickening along the medial right superior hemithorax is noted which has th e appearance of a pleural based mass or focally loculated pleural fluid. Partially loculated left ple ural effusion with atelectasis in the left lung base. Diffuse esophageal dilatation with fluid. Liver cirrhosis with TIPS shunt in place. Mild splenomegaly. Bilateral nephrolithiasis without hydronephrosis. Cholelithiasis. Mildly displaced acute fractures left inferior ribs as detailed. No pneumothorax. Moderate thickening of the right colon and cecum noted could be colitis or related to portal colopath y.
[2020-08-29] MEDS ORDERED: D5 0.45 NS 1,000 ML IV ONE ×2 (19:15→23:34)
[2020-08-29] MEDS ORDERED: NA CHLORIDE 0.9% 1,000 ML ONE ×3 (19:44→22:51)
[2020-08-29] MEDS ORDERED: NA CHLORIDE 0.9% 250 ML ONE (20:54)
[2020-08-29] MEDS ORDERED: VANCOMYCIN 1 GM/VIAL ONE (20:54)
[2020-08-29] MEDS ORDERED: PIPER/TAZO/NS 3.375gm 3.375 GM/100 ML BAG ONE (20:54)
--- NOTE | 2020-08-29 21:48 | ER ---
Nurse's Notes [facility] Name: Bhargav Cresaranya Age: 45 yrs Sex: Male : 1975 Arrival Date: 08/29/2020 Time: 14:45 Bed 14 Private MD: Diagnosis: Acute kidney failure;Hepatic failure, unspecified;Other sepsis Presentation: 08/29 15:22 Chief complaint: Spouse and/or significant other states: : He tripped over a puppy ca1 4 days ago. He has gotten weak since then, muscles are weak and cramping, we think he broke his ribs. Ribs hurting on the L side. It hurts to breathe. Denies fever. Coronavirus screen: Client denies travel out of the [place] in the last 14 days. difficulty breathing, Client presents with at least one sign or symptom that may indicate coronavirus-19. Standard/surgical mask placed on the client. Provider contacted for isolation considerations. Ebola Screen: Patient negative for fever greater than or equal to 101.5 degrees Fahrenheit, and additional compatible Ebola Virus Disease symptoms Patient denies exposure to infectious person. Patient denies travel to an Ebola-affected area in the 21 days before illness onset. No symptoms or risks identified at this time. Initial Sepsis Screen: Does the patient meet any 2 criteria? No. Patient's initial sepsis screen is negative. Does the patient have a suspected source of infection? No. Patient's initial sepsis screen is negative. Risk Assessment: Do you want to hurt yourself or someone else? Patient reports no desire to harm self or others. Onset of symptoms was August 29, 2020. 15:22 Method Of Arrival: Wheelchair ca1 15:22 Acuity: KIRILL 2 ca1 Historical: - Allergies: 15:26 No Known Allergies; ca1 - PMHx: 15:26 Cirrhosis; esophageal varices; GALLSTONES; COPD; ca1 - PSHx: 15:26 variceal banding; ca1 - Immunization history:: Adult Immunizations up to date, Flu vaccine is not up to date. - Social history:: Smoking status: Patient reports the use of cigarette tobacco products, smokes one-half pack cigarettes per day. Screenin:41 Abuse screen: Denies threats or abuse. Denies injuries from another. Nutritional hb screening: No deficits noted. Tuberculosis screening: No symptoms or risk factors identified. Fall Risk Total Castro Fall Scale indicates Low Risk Score (25-44 pts). Fall prevention measures have been instituted. Side Rails Up X 2 Placed close to Nursing Station Frequent Obs/Assesments occuring Family Present and informed to notify staff if they need to leave bedside As available Patient and Family Educated on Fall Prevention Program and strategies. Assessment: 16:22 Reassessment: Unable to establish PIV access, Charge Nurse Misti RN at beside for US hb guided PIC access, ZITA Davalos aware. 18:06 General: Appears ill, Behavior is drowsy. Neuro: Level of Consciousness is awake, obeys ec1 commands. Cardiovascular:. Respiratory: Airway is patent Respiratory effort is even, unlabored, Respiratory pattern is regular, symmetrical, Breath sounds are clear in left posterior upper lobe and right posterior upper lobe Breath sounds are diminished in left posterior lower lobe, right posterior middle lobe and right posterior lower lobe. GI: No signs and/or symptoms were reported involving the gastrointestinal system. : No signs and/or symptoms were reported regarding the genitourinary system. EENT: No signs and/or symptoms were reported regarding the EENT system. Derm: No signs and/or symptoms reported regarding the dermatologic system. Musculoskeletal: No signs and/or symptoms reported regarding the musculoskeletal system. 19:04 Reassessment: BGL LO on glucometer. ZITA Page notified, inside lab called for blood draw, hb repeat dextrose and dextrose drip started as ordered. remains at bedside. 19:10 Reassessment: Missed attempted 22g IV to left FA, provider attempted AUGUSTO 18g EJ's, jb4 missed both attempted. Pt prepped for central line placement. 19:25 Reassessment: Received verbal order for Wright catheter placement. jb4 20:15 Reassessment: PT remains confused and oriented to self, remains uncooperative and jb4 drowsy. Respirations are even and unlabored with no s/s of pain or distress noted. 21:15 Reassessment: PT remains confused but is more awake. Continues to be uncooperative, jb4 provider is aware. Respirations are even and unlabored, no s/s of pain or distress noted. 21:24 Reassessment: lactate 13.4 arpit from laboratory called, ED provider aware. rr5 22:02 Reassessment: PT is now alert and oriented x4. Central line and catheter remain in jb4 place. Respirations are even and unlabored. Fluids infusing without difficulty. Crackles noted the right lobes and rhonchi noted AUGUSTO. Provider notified of lung sounds, Clarified order for 30ml/kg bolus. Received order to continue bolus. 22:21 Reassessment: Wright removed per pt's request. provider at the bedside verifying jb4 orientation of patient. Pt verbalized refusal to continue the use of the wright. Wright removed. Pt reports feeling better after Wright removal, continues to be uncooperative, and trying to get out of bed. Pt verbalized generalized weakness, informed that standing and walking in current condition is unsafe, pt verbalized understanding and continues to try and get out of bed. Provider notified. 22:45 Reassessment: Patient appears in no apparent distress at this time. Patient and/or jb4 family updated on plan of care and expected duration. Pain level reassessed. Patient is alert, oriented x 3, equal unlabored respirations, skin warm/dry/pink. report given to NESHA House. Pt gave verbal consent for transfer reports being to [facility] to sign. 23:26 Reassessment: Pt is resting with eyes closed, after ativan administration. Report given jb4 to EMS. No s/s of pain or distress noted, fluids infusing with ease through IV and Central line. Central line dressing changed. respirations remain even and unlabored. Vital Signs: 15:22 BP 110 / 63; Pulse 99; Resp 20 S; Temp 97.9(TE); Pulse Ox 89% on R/A; Weight 99.79 kg ca1 (R); Height 5 ft. 9 in. (175.26 cm) (R); Pain 10/10; 18:00 BP 121 / 57; Pulse 93; Resp 20 S; Pulse Ox 92% on 4 lpm NC; ec1 19:00 BP 100 / 57; Pulse 92; Resp 19; Pulse Ox 97% on R/A; hb 20:30 BP 122 / 81; Pulse 84; Resp 18; Pulse Ox 95% on 4 lpm NC; jb4 21:30 BP 132 / 82; Pulse 98; Resp 16; Pulse Ox 93% on 4 lpm NC; jb4 22:30 BP 126 / 93; Pulse 82; Resp 20; Pulse Ox 94% on 4 lpm NC; jb4 15:22 Body Mass Index 32.49 (99.79 kg, 175.26 cm) ca1 ED Course: 14:45 Patient arrived in ED. as 15:25 Triage completed. ca1 15:26 Arm band placed on right wrist. ca1 15:39 Anoop Ca PA is PHCP. cp 15:39 Benson oMtley MD is Attending Physician. cp 15:39 Bobby Velez NP is PHCP. pm1 15:42 Marisela Valdez RN is Primary Nurse. ec1 15:45 Oxygen administration via nasal cannula \T\ 2L/min. ca1 16:15 Patient has correct armband on for positive identification. Placed in gown. Bed in low hb position. Call light in reach. Side rails up X2. 16:34 Inserted saline lock: 22 gauge in right antecubital area, using aseptic technique. ec1 ,using aseptic technique. US guided. Pt tolerated well Blood collected. 16:48 XRAY Chest (1 view) In Process Unspecified. EDMS 18:25 Chest Abd Pelvis Wo Con In Process Unspecified. EDMS 19:09 Report given to Hugo JEFFRIES. ec1 19:45 Wright cath inserted, using sterile technique, 18 Fr., by tn, balloon inflated, to jb4 gravity drainage, Patient tolerated well. 20:15 Assisted provider with central line placement. Set up central line tray. Triple lumen jb4 line placed in right femoral. Line placed by Anoop AHUMADA Placement verified by blood return, Dressed with Tegaderm, Blood was collected. Patient tolerated well. Patient transferred, IV remains in place. 20:29 Primary Nurse role handed off by Marisela Valdez RN mw2 20:33 Indra Landers, NESHA is Primary Nurse. jb4 20:34 initiated a transfer with Jessica Ugarte from [facility] transfer center. mw2 22:10 administrative approval given by Jessica Ugarte/ patient has been accepted to [place] [id number] [facility] 10 C 1044/ Dr. Almanza has accepted the patient in transfer/ report to be called to [phone]. Administered Medications: 16:36 Drug: fentaNYL (PF) 25 mcg Route: IVP; Site: left antecubital; hb 18:17 Follow up: Response: No adverse reaction; Pain is decreased ec1 18:08 Drug: Albuterol HFA Inhaler 2 puffs Route: Inhalation; ec1 18:17 Follow up: Response: No adverse reaction ec1 18:16 Drug: D50W 50 ml Route: IVP; Site: right antecubital; ec1 19:07 Follow up: Response: No adverse reaction hb 19:11 Follow up: Response: Blood sugar is unchanged ec1 18:39 Drug: D50W 50 ml Route: IVP; Site: right antecubital; ec1 19:07 Follow up: Response: No adverse reaction hb 19:11 Follow up: Response: Blood sugar is unchanged ec1 19:03 Drug: D50W 50 ml Route: IVP; Site: right antecubital; hb 19:30 Follow up: Response: No adverse reaction; No change in condition jb4 19:04 Drug: D5-1/2 NS 1000 ml Route: IV; Rate: 150 ml/hr; Site: right antecubital; hb 20:30 Follow up: Rate change 200 ml/hr; Rate changed per providers instructions. jb4 23:30 Follow up: Response: No adverse reaction; IV Status: Infusion continued upon transfer; jb4 IV Intake: 800ml 19:30 Drug: D50W 50 ml {Note: Administered by NESHA Burgess.} Route: IVP; Site: right antecubital;jb4 20:00 Follow up: Response: No adverse reaction; No change in condition jb4 19:45 Drug: NS 0.9% (30 ml/kg) 30 ml/kg {Note: Adminstered first liter, second 2 liters held jb4 per providers instructions..} Route: IV; Rate: bolus; Site: right antecubital; 23:29 Follow up: Response: No adverse reaction; IV Status: Infusion continued upon transfer; jb4 IV Intake: 2200ml 20:30 Drug: D50W 50 ml Route: IVP; Site: right femoral; jb4 23:31 Follow up: Response: No adverse reaction; Blood sugar is elevated jb4 20:55 Drug: vancoMYCIN 1 grams Route: IVPB; Infused Over: 2 hrs; Site: right femoral; jb4 22:55 Follow up: Response: No adverse reaction; IV Status: Completed infusion; IV Intake: jb4 250ml 20:55 Drug: Zosyn 3.375 grams Route: IVPB; Infused Over: 60 mins; Site: right femoral; jb4 21:55 Follow up: IV Status: Completed infusion; IV Intake: 100ml jb4 21:25 Drug: fentaNYL (PF) 25 mcg {Note: Rass score 0.} Route: IVP; Site: right femoral; jb4 21:50 Follow up: Response: No adverse reaction; Pain is unchanged, physician notified; RASS: jb4 Alert and Calm (0) 21:30 Drug: Magnesium Sulfate 2 grams Route: IVPB; Infused Over: 1 hrs; Site: right femoral; jb4 22:30 Follow up: Response: No adverse reaction; IV Status: Completed infusion; IV Intake: jb4 100ml 21:58 Drug: fentaNYL (PF) 25 mcg Route: IVP; Site: right femoral; jb4 22:30 Follow up: Response: No adverse reaction; Pain is decreased; RASS: Alert and Calm (0) jb4 22:45 Drug: Ativan 1 mg Route: IVP; Site: right femoral; jb4 23:28 Follow up: Response: No adverse reaction; Marked relief of symptoms jb4 23:15 Drug: Sodium Bicarbonate 1 amp Route: IVP; Site: right femoral; jb4 23:15 Follow up: Response: Medication administered at discharge. jb4 23:15 Drug: Sodium Bicarbonate 1 amp Route: IVP; Site: right femoral; jb4 23:15 Follow up: Response: Medication administered at discharge. jb4 Intake: 21:55 IV: 100ml; Total: 100ml. jb4 22:30 IV: 100ml; Total: 200ml. jb4 22:55 IV: 250ml; Total: 450ml. jb4 23:29 IV: 2200ml; Total: 2650ml. jb4 23:30 IV: 800ml; Total: 3450ml. jb4 Outcome: 21:46 ER care complete, transfer ordered by MD. moran 23:28 Transferred by ground EMS [facility]. to [facility], Transfer form jb4 completed. X-rays sent w/ patient. 23:28 Condition: stable 23:28 Discharge instructions given to patient, family, Instructed on the need for transfer, Demonstrated understanding of instructions. 23:35 Patient left the ED. jb4 Signatures: Dispatcher [employer] EDMS Adriana Santoro Shelby, RN RN ss Anoop Ca PA PA Bobby Guido NP SHEEP KILLER pm1 Shaneka Mcduffie, RN RN Indra Landers RN RN jb4 Saira Vincent mw2 Brandon Burns RN RN rr5 Kacey Bennett RN RN ca1 Marisela Valdez, NESHA RN ec1 Corrections: (The following items were deleted from the chart) 18:19 16:34 Inserted saline lock: 22 gauge in left antecubital area, using aseptic technique. ec1 ,using aseptic technique. US guided. Pt tolerated well Blood collected. ss 08/30 01:47 08/29 22:02 Reassessment: PT is now alert and oriented x4. Central line and catheter jb4 remain in place. Respirations are even and unlabored. Fluids infusing without difficulty. Crackles noted the right lobes and rhonchi noted AUGUSTO. jb4 08/30 01:47 08/29 22:21 Reassessment: Wright removed per pt's request. provider at the bedside jb4 verifying orientation of patient. Pt verbalized refusal to continue the use of the wright. Wright removed. jb4 08/30 01:47 08/29 22:45 Reassessment: Patient appears in no apparent distress at this time. Patient jb4 and/or family updated on plan of care and expected duration. Pain level reassessed. Patient is alert, oriented x 3, equal unlabored respirations, skin warm/dry/pink. report given to NESHA House. Pt gave verbal consent for transfer reports being to weak to sign. jb4
--- NOTE | 2020-08-29 21:48 | EDPHYS ---
Physician Documentation [facility] Name: Bhargav Cresaranya Age: 45 yrs Sex: Male : 1975 Arrival Date: 08/29/2020 Time: 14:45 Bed 14 Private MD: ED Physician Benson Motley HPI: 08/29 16:00 This 45 yrs old Male presents to ER via Wheelchair with complaints of Fall cp Injury, Rib Pain, COPD Exacerbation. 16:00 The patient or guardian reports chest pain that is located primarily in the left cp lateral anterior chest and left lateral posterior chest. 16:00 Onset: 4 day(s) ago. The pain does not radiate. Associated signs and symptoms: cp Pertinent positives: abdominal pain, shortness of breath, Pertinent negatives: diaphoresis, lower extremity pain, lower extremity swelling. Duration: The patient or guardian reports a single episode, that is still ongoing, and unchanged. Patient reports trip and fall while walking 4 days ago in which he landed on left side. Reports increasing left sided rib pain since fall. Historical: - Allergies: 15:26 No Known Allergies; ca1 - PMHx: 15:26 Cirrhosis; esophageal varices; GALLSTONES; COPD; ca1 - PSHx: 15:26 variceal banding; ca1 - Immunization history:: Adult Immunizations up to date, Flu vaccine is not up to date. - Social history:: Smoking status: Patient reports the use of cigarette tobacco products, smokes one-half pack cigarettes per day. ROS: 16:05 Constitutional: Negative for body aches, chills, fever, poor PO intake. cp 16:05 Eyes: Negative for injury, pain, redness, and discharge. cp 16:05 Cardiovascular: Positive for chest pain, of the left lateral rib area, Negative for edema, palpitations. 16:05 Respiratory: Positive for shortness of breath, at rest. Negative for cough. 16:05 Abdomen/GI: Positive for abdominal pain, of the anterior aspect of left lateral abdomen and posterior aspect of left lateral abdomen, Negative for vomiting, diarrhea, constipation. 16:05 : Negative for urinary symptoms. 16:05 Skin: Negative for rash. 16:05 Neuro: Positive for general weakness, Negative for altered mental status, headache, syncope. 16:05 All other systems are negative. Exam: 16:10 Constitutional: The patient appears in no acute distress, alert, awake, cp non-diaphoretic, non-toxic, well developed, well nourished, obese. 16:10 Head/Face: Normocephalic, atraumatic. cp 16:10 Eyes: Periorbital structures: appear normal, Conjunctiva: normal, no exudate, no cp injection, Sclera: no appreciated abnormality, Lids and lashes: appear normal, bilaterally. 16:10 ENT: External ear(s): are unremarkable, Nose: is normal, Mouth: Lips: dry, Oral mucosa: cp dry, Posterior pharynx: Airway: no evidence of obstruction, patent. 16:10 Neck: ROM/movement: is normal, is supple, without pain, no range of motions limitations, no meningismus, no nuchal rigidity. 16:10 Chest/axilla: Inspection: normal, Palpation: crepitus, is not appreciated, tenderness, that is moderate, of the left lateral anterior chest and left lateral posterior chest. 16:10 Cardiovascular: Rate: normal, Rhythm: regular, Edema: is not appreciated, JVD: is not appreciated. 16:10 Respiratory: the patient does not display signs of respiratory distress, Respirations: labored breathing, is not present, intercostal retractions, are absent, Breath sounds: decreased breath sounds, that are mild, are heard in the left posterior lower lobe, stridor, is not appreciated, wheezing: is not appreciated. 16:10 Abdomen/GI: Inspection: distension, is not seen, obese Bowel sounds: active, all quadrants, Palpation: soft, in all quadrants, moderate abdominal tenderness, in the anterior aspect of left lateral abdomen and posterior aspect of left lateral abdomen, rebound tenderness, is not appreciated, involuntary guarding, is not appreciated. 16:10 Back: vertebral tenderness, is not appreciated. 16:10 Skin: cellulitis, is not appreciated, no rash present. 16:10 Neuro: Orientation: to person, place \T\ time. Mentation: able to follow commands, slow to respond, Cerebellar function: is grossly normal, Motor: moves all fours, strength is normal, Sensation: no obvious gross deficits. 17:55 ECG was reviewed by the Attending Physician. cp Vital Signs: 15:22 BP 110 / 63; Pulse 99; Resp 20 S; Temp 97.9(TE); Pulse Ox 89% on R/A; Weight 99.79 kg ca1 (R); Height 5 ft. 9 in. (175.26 cm) (R); Pain 10/10; 18:00 BP 121 / 57; Pulse 93; Resp 20 S; Pulse Ox 92% on 4 lpm NC; ec1 19:00 BP 100 / 57; Pulse 92; Resp 19; Pulse Ox 97% on R/A; hb 20:30 BP 122 / 81; Pulse 84; Resp 18; Pulse Ox 95% on 4 lpm NC; jb4 21:30 BP 132 / 82; Pulse 98; Resp 16; Pulse Ox 93% on 4 lpm NC; jb4 22:30 BP 126 / 93; Pulse 82; Resp 20; Pulse Ox 94% on 4 lpm NC; jb4 15:22 Body Mass Index 32.49 (99.79 kg, 175.26 cm) ca1 Procedures: 20:59 Central Line: the site was prepped with Betadine, a triple lumen catheter was inserted, cp in the right femoral vein, in 1 attempts. placement was verified, by blood return, the site was dressed with using sterile technique, the patient tolerated the procedure, well. MDM: 15:40 Patient medically screened. cp 21:50 Data reviewed: vital signs, nurses notes, lab test result(s), EKG, radiologic studies, cp CT scan, I have discussed the patient's presentation/case with the attending Emergency Department Physician;. 21:50 Test interpretation: by ED physician or midlevel provider: ECG. Response to treatment: cp improved. Physician consultation: was contacted at 20:30, regarding regarding transfer, to [facility]. patient's condition, accepting physician will be DR Almanza to medical floor. 08/29 15:52 Order name: Basic Metabolic Panel; Complete Time: 18:02 cp 08/29 18:02 Interpretation: Normal except: CO2 18; BUN 48; CRE 3.77; GFR 17; CA 8.0; GLUC 38. cp 08/29 15:52 Order name: CBC with Diff; Complete Time: 18:01 cp 08/29 17:56 Interpretation: Normal except: RBC 4.15; HGB 12.1; HCT 37.0; MCV 89.3; PLT 109; RDW cp 17.6; TIAN% 90.3; LYM% 6.9; MN% 2.0; NEUT A 9.7. 08/29 15:52 Order name: LFT's; Complete Time: 18:03 cp 08/29 18:03 Interpretation: Normal except: AST 154; ALK 125; BILIT 4.6; BILID 3.7; ALB 1.9; GLOB cp 4.5; A/G 0.4. 08/29 15:52 Order name: Magnesium; Complete Time: 18:03 cp 08/29 21:13 Interpretation: Abnormal: MG 1.6. cp 08/29 15:52 Order name: NT PRO-BNP; Complete Time: 18:03 cp 08/29 15:52 Order name: PT-INR; Complete Time: 17:55 cp 08/29 15:52 Order name: Troponin (emerg Dept Use Only); Complete Time: 18:03 cp 08/29 18:03 Interpretation: Abnormal: TROPED 0.13. cp 08/29 15:52 Order name: Influenza Screen (a \T\ B); Complete Time: 17:56 cp 08/29 18:01 Order name: Manual Differential; Complete Time: 18:01 EDMS 08/29 18:46 Order name: Glucose; Complete Time: 21:12 ec1 08/29 18:55 Order name: Glucose, Ancillary Testing; Complete Time: 19:28 EDMS 08/29 18:57 Order name: Glucose, Ancillary Testing; Complete Time: 19:28 EDMS 08/29 19:11 Order name: Glucose, Ancillary Testing; Complete Time: 19:28 EDMS 08/29 15:52 Order name: XRAY Chest (1 view); Complete Time: 17:05 cp 08/29 18:06 Order name: Chest Abd Pelvis Wo Con; Complete Time: 19:28 EDMS 08/29 19:33 Order name: Lactate; Complete Time: 21:36 cp 08/29 19:33 Order name: Blood Culture Adult (2) cp 08/29 19:33 Order name: Procalcitonin; Complete Time: 21:36 cp 08/29 19:44 Order name: Glucose, Ancillary Testing; Complete Time: 21:12 EDMS 08/29 20:16 Order name: AMMONIA; Complete Time: 21:22 jb4 08/29 20:34 Order name: Glucose, Ancillary Testing; Complete Time: 21:12 EDMS 08/29 20:34 Order name: ABG; Complete Time: 22:48 jb4 12/06 21:24 Order name: Glucose, Ancillary Testing; Complete Time: 21:36 EDMS 08/29 21:37 Order name: SARS-COV-2 RT PCR; Complete Time: 22:48 EDMS 08/29 15:52 Order name: EKG; Complete Time: 15:54 cp 08/29 15:52 Order name: Cardiac monitoring; Complete Time: 16:42 cp 08/29 15:52 Order name: EKG - Nurse/Tech; Complete Time: 17:54 cp 08/29 15:52 Order name: IV Saline Lock; Complete Time: 16:42 cp 08/29 15:52 Order name: Labs collected and sent; Complete Time: 16:42 cp 08/29 15:52 Order name: O2 Per Protocol; Complete Time: 16:42 cp 08/29 15:52 Order name: O2 Sat Monitoring; Complete Time: 16:42 cp EC:55 Rate is 97 beats/min. Rhythm is regular. LA interval is normal. QRS interval is cp prolonged at 110 msec. QT interval is normal. T waves are Inverted in lead aVR. Interpreted by me. Reviewed by me. Administered Medications: 16:36 Drug: fentaNYL (PF) 25 mcg Route: IVP; Site: left antecubital; hb 18:17 Follow up: Response: No adverse reaction; Pain is decreased ec1 18:08 Drug: Albuterol HFA Inhaler 2 puffs Route: Inhalation; ec1 18:17 Follow up: Response: No adverse reaction ec1 18:16 Drug: D50W 50 ml Route: IVP; Site: right antecubital; ec1 19:07 Follow up: Response: No adverse reaction hb 19:11 Follow up: Response: Blood sugar is unchanged ec1 18:39 Drug: D50W 50 ml Route: IVP; Site: right antecubital; ec1 19:07 Follow up: Response: No adverse reaction hb 19:11 Follow up: Response: Blood sugar is unchanged ec1 19:03 Drug: D50W 50 ml Route: IVP; Site: right antecubital; hb 19:30 Follow up: Response: No adverse reaction; No change in condition jb4 19:04 Drug: D5-1/2 NS 1000 ml Route: IV; Rate: 150 ml/hr; Site: right antecubital; hb 20:30 Follow up: Rate change 200 ml/hr; Rate changed per providers instructions. jb4 23:30 Follow up: Response: No adverse reaction; IV Status: Infusion continued upon transfer; 4 IV Intake: 800ml 19:30 Drug: D50W 50 ml {Note: Administered by NESHA Burgess.} Route: IVP; Site: right antecubital;4 20:00 Follow up: Response: No adverse reaction; No change in condition jb4 19:45 Drug: NS 0.9% (30 ml/kg) 30 ml/kg {Note: Adminstered first liter, second 2 liters held jb4 per providers instructions..} Route: IV; Rate: bolus; Site: right antecubital; 23:29 Follow up: Response: No adverse reaction; IV Status: Infusion continued upon transfer; 4 IV Intake: 2200ml 20:30 Drug: D50W 50 ml Route: IVP; Site: right femoral; jb4 23:31 Follow up: Response: No adverse reaction; Blood sugar is elevated jb4 20:55 Drug: vancoMYCIN 1 grams Route: IVPB; Infused Over: 2 hrs; Site: right femoral; jb4 22:55 Follow up: Response: No adverse reaction; IV Status: Completed infusion; IV Intake: jb4 250ml 20:55 Drug: Zosyn 3.375 grams Route: IVPB; Infused Over: 60 mins; Site: right femoral; jb4 21:55 Follow up: IV Status: Completed infusion; IV Intake: 100ml jb 21:25 Drug: fentaNYL (PF) 25 mcg {Note: Rass score 0.} Route: IVP; Site: right femoral; jb4 21:50 Follow up: Response: No adverse reaction; Pain is unchanged, physician notified; RASS: [facility] Alert and Calm (0) 21:30 Drug: Magnesium Sulfate 2 grams Route: IVPB; Infused Over: 1 hrs; Site: right femoral; jb4 22:30 Follow up: Response: No adverse reaction; IV Status: Completed infusion; IV Intake: jb4 100ml 21:58 Drug: fentaNYL (PF) 25 mcg Route: IVP; Site: right femoral; jb4 22:30 Follow up: Response: No adverse reaction; Pain is decreased; RASS: Alert and Calm (0) [facility] 22:45 Drug: Ativan 1 mg Route: IVP; Site: right femoral; jb4 23:28 Follow up: Response: No adverse reaction; Marked relief of symptoms jb4 23:15 Drug: Sodium Bicarbonate 1 amp Route: IVP; Site: right femoral; jb4 23:15 Follow up: Response: Medication administered at discharge. jb4 23:15 Drug: Sodium Bicarbonate 1 amp Route: IVP; Site: right femoral; jb4 23:15 Follow up: Response: Medication administered at discharge. jb4 Disposition: 23:40 Critical Care:. cp 08/30 09:34 Co-signature as Attending Physician, Benson Motley MD. rn Disposition: 08/29/20 21:46 Transfer ordered to [facility]. Diagnosis are Acute kidney failure, Hepatic failure, unspecified, Other sepsis. - Reason for transfer: Higher level of care. - Accepting physician is DR Almanza. - Condition is Serious. - Problem is new. - Symptoms have improved. Critical care time excluding procedures: 08/29 23:40 Critical care time: Bedside Care: 20 minutes, Consultation: 20 minutes, Family cp Intervention: 5 minutes. Total time: 45 minutes Signatures: Dispatcher [employer] EDMS Benson Motley MD MD rn Page, Corey, PA PA cp Shaneka Mcduffie RN NESHA Indra Landers RN RN jb4 Kacey Bennett RN RN ca1 Marisela Valdez RN RN ec1 Corrections: (The following items were deleted from the chart) 18:03 18:03 Normal except: AST 154; ALK 125; BILIT 4.6; BILID 3.7; ALB 1.9; GLOB 4.5. cp cp 18:06 17:06 Chest Abdomen Pelvis W Con+CT.RAD.BRZ ordered. EDMS EDMS 20:49 15:54 CORONAVIRUS+MR.LAB.BRZ ordered. EDMS EDMS 23:35 21:46 08/29/2020 21:46 Transfer ordered to [facility]. Diagnosis is Acute kidney jb4 failure; Hepatic failure, unspecified; Other sepsis. Reason for transfer: Higher level of care. Accepting physician is DR Almanza. Condition is Serious. Problem is new. Symptoms have improved. cp
[2020-08-29] MEDS ORDERED: Magnesium Sulfate 2gm IVPB 2 G/50 ML BAG IV ONE (21:51)
[2020-08-29 22:38] LABS: Arterial Blood Carboxyhemoglob 0.7 % (0-1.5); Blood O2 Saturation 90.5 % (92-98.5)
[2020-08-29] MEDS ORDERED: LORazepam 2 MG/ML VIAL ONE (22:51)
[2020-08-29] MEDS ORDERED: SODIUM BICARB 50 MEQ/50ML VIAL ONE (23:17)
[2020-09-02 16:17] VITALS: TEMP 97.9
[2020-09-02 16:23] VITALS: BP 126/93; O2SAT 94
== END 2020-08-29 23:35 | disposition short-term general hospital (02) ==
LOC: ER 14:44
PROC: 06HT33Z Insertion of Infusion Device into Right Foot Vein, Percutaneous Approach (ICD-10-PCS; principal; 2020-08-29)
DX: N17.9 Acute kidney failure, unspecified (principal); A41.89 Other specified sepsis; K72.90 Hepatic failure, unspecified without coma; W19.XXXA Unspecified fall, initial encounter; Y93.01 Activity, walking, marching and hiking; Y92.9 Unspecified place or not applicable; K74.60 Unspecified cirrhosis of liver; F17.210 Nicotine dependence, cigarettes, uncomplicated
CPT/HCPCS: 36415; 51702; 71045; 71250; 74176; 80048; 80076; 82140; 82805; 82947; 83605; 83735; 83880; 84145; 84484; 85025; 85610; 87040; 87077; 87186; 87205; 87804; 93005; 99285; J2405; J2543; J3010; J3370; J3475; J7030; J7050; J7799; U0003